=== PATIENT | male | born 1960 ===

== ENCOUNTER → 2020-10-04 09:32 | Outpatient (BNVA) | payer MEDICARE, MEDICAID, SELFPAY | PROVIDERS: PCP Internal Medicine; Referring Provider Internal Medicine; Visit Provider Internal Medicine Endocrinology, Diabetes & Metabolism | DX: E11.42 Type 2 diabetes mellitus with diabetic polyneuropathy (principal); E11.22 Type 2 diabetes mellitus with diabetic chronic kidney disease; I12.9 Hypertensive chronic kidney disease with stage 1 through stage 4 chronic kidney disease, or unspecified chronic kidney disease; N18.30 Chronic kidney disease, stage 3 unspecified; Z79.84 Long term (current) use of oral hypoglycemic drugs; E78.5 Hyperlipidemia, unspecified; E83.52 Hypercalcemia | CPT/HCPCS: 99212 ==

== ENCOUNTER 2020-11-02 07:48 | Outpatient (REF) | payer MEDICARE, MEDICAID, SELFPAY ==
[2020-11-02 09:34] LABS: Alanine Aminotransferase 21 U/L (0-40); Albumin Level 4.2 g/dL (3.5-5.0); Alkaline Phosphatase 121 U/L (39-117); Anion Gap 12 (12-20); Aspartate Amino Transferase 19 U/L (5-37); Bilirubin Total 0.7 mg/dL (0.0-1.0); Blood Urea Nitrogen 23 mg/dL (9-16); Carbon Dioxide 29 mmol/L (22-29); Chloride 105 mmol/L (96-108); Estimated Glomerular Filt Rate 46; Glucose Random 116 mg/dL (60-115); Potassium 4.7 mmol/l (3.3-5.1); Sodium 141 mmol/L (135-145); Total Protein 6.6 g/dL (6.5-8.0)
[2020-11-02 09:42] LABS: Calcium 10.5 mg/dL (8.4-10.2)
[2020-11-03 20:37] LABS: Calcium (PTHI) 10.7 mg/dL (8.6-10.3); PTHI 58 pg/mL (14-64)
== END 2020-11-02 07:49 | disposition home or self-care (01) ==
LOC: HO.LAB 07:48
PROVIDERS: Visit Provider Internal Medicine
DX: E78.00 Pure hypercholesterolemia, unspecified (principal); E11.65 Type 2 diabetes mellitus with hyperglycemia; E11.22 Type 2 diabetes mellitus with diabetic chronic kidney disease; I12.9 Hypertensive chronic kidney disease with stage 1 through stage 4 chronic kidney disease, or unspecified chronic kidney disease; N18.30 Chronic kidney disease, stage 3 unspecified; E83.52 Hypercalcemia; Z94.0 Kidney transplant status
CPT/HCPCS: 80053; 83970

== ENCOUNTER → 2020-11-08 14:13 | Outpatient (BNVA) | payer MEDICARE, MEDICAID, SELFPAY | PROVIDERS: PCP Internal Medicine; Referring Provider Internal Medicine; Visit Provider Internal Medicine Endocrinology, Diabetes & Metabolism | DX: E11.22 Type 2 diabetes mellitus with diabetic chronic kidney disease (principal); I12.9 Hypertensive chronic kidney disease with stage 1 through stage 4 chronic kidney disease, or unspecified chronic kidney disease; N18.30 Chronic kidney disease, stage 3 unspecified; E11.42 Type 2 diabetes mellitus with diabetic polyneuropathy; E11.21 Type 2 diabetes mellitus with diabetic nephropathy; E83.52 Hypercalcemia; E78.5 Hyperlipidemia, unspecified | CPT/HCPCS: 82947; 99212 ==

== ENCOUNTER 2020-12-19 07:17 | Outpatient (REF) | payer MEDICARE, MEDICAID, SELFPAY ==
[2020-12-19 08:04] LABS: Estimated Average Glucose 143 mg/dL; Hemoglobin A1c % 6.6 %
[2020-12-19 08:29] LABS: Alanine Aminotransferase 18 U/L (0-40); Albumin Level 4.2 g/dL (3.5-5.0); Alkaline Phosphatase 106 U/L (39-117); Anion Gap 11 (12-20); Aspartate Amino Transferase 17 U/L (5-37); Bilirubin Total 0.5 mg/dL (0.0-1.0); Blood Urea Nitrogen 29 mg/dL (9-16); Calcium 10.3 mg/dL (8.4-10.2); Carbon Dioxide 27 mmol/L (22-29); Chloride 109 mmol/L (96-108); Estimated Glomerular Filt Rate 43; Glucose Fasting 118 mg/dL (60-99); Potassium 4.4 mmol/l (3.3-5.1); Sodium 143 mmol/L (135-145); Total Protein 6.7 g/dL (6.5-8.0)
== END 2020-12-19 07:18 | disposition home or self-care (01) ==
LOC: HO.LAB 07:17
PROVIDERS: PCP Internal Medicine; Visit Provider Internal Medicine Endocrinology, Diabetes & Metabolism
DX: E11.21 Type 2 diabetes mellitus with diabetic nephropathy (principal); J44.9 Chronic obstructive pulmonary disease, unspecified
CPT/HCPCS: 36415; 80053; 83036

== ENCOUNTER 2021-05-16 13:11 | Outpatient (REF) | payer MEDICARE, MEDICAID, SELFPAY ==
[2021-05-16 15:07] LABS: Creatinine Urine 107.89 mg/dL; Microalbum/Creatinine Ratio Ur 41.7 ug/mg cr
[2021-05-16 15:10] LABS: Alanine Aminotransferase 18 U/L (0-40); Albumin Level 4.1 g/dL (3.5-5.0); Alkaline Phosphatase 97 U/L (39-117); Anion Gap 10 (12-20); Aspartate Amino Transferase 17 U/L (5-37); Bilirubin Total 0.2 mg/dL (0.0-1.0); Blood Urea Nitrogen 29 mg/dL (9-16); Calcium 10.7 mg/dL (8.4-10.2); Carbon Dioxide 30 mmol/L (22-29); Chloride 109 mmol/L (96-108); Estimated Glomerular Filt Rate 44; Glucose Random 105 mg/dL (60-115); Potassium 4.7 mmol/L (3.3-5.1); Sodium 144 mmol/L (135-145); Total Protein 6.4 g/dL (6.5-8.0)
== END 2021-05-16 13:12 | disposition home or self-care (01) ==
LOC: HO.LAB 13:11
PROVIDERS: PCP Internal Medicine; Visit Provider Internal Medicine Endocrinology, Diabetes & Metabolism
DX: I12.9 Hypertensive chronic kidney disease with stage 1 through stage 4 chronic kidney disease, or unspecified chronic kidney disease (principal); E11.22 Type 2 diabetes mellitus with diabetic chronic kidney disease; N18.30 Chronic kidney disease, stage 3 unspecified; E11.65 Type 2 diabetes mellitus with hyperglycemia; E11.42 Type 2 diabetes mellitus with diabetic polyneuropathy; E78.5 Hyperlipidemia, unspecified; E83.52 Hypercalcemia; E11.21 Type 2 diabetes mellitus with diabetic nephropathy
CPT/HCPCS: 36415; 80053; 82043; 82947; 99212

== ENCOUNTER → 2021-07-30 14:21 | Outpatient (BNVA) | payer MEDICARE, MEDICAID, SELFPAY | PROVIDERS: PCP Internal Medicine | DX: Z20.822 Contact with and (suspected) exposure to COVID-19 (principal) | CPT/HCPCS: 36415; 87635 ==

== ENCOUNTER → 2021-08-20 12:41 | Outpatient (BNVA) | payer MEDICARE, MEDICAID, SELFPAY | PROVIDERS: PCP Internal Medicine; Visit Provider Nurse Practitioner Gerontology | DX: E11.65 Type 2 diabetes mellitus with hyperglycemia (principal); E11.22 Type 2 diabetes mellitus with diabetic chronic kidney disease; E11.21 Type 2 diabetes mellitus with diabetic nephropathy; E11.42 Type 2 diabetes mellitus with diabetic polyneuropathy; I12.0 Hypertensive chronic kidney disease with stage 5 chronic kidney disease or end stage renal disease; N18.6 End stage renal disease; E78.5 Hyperlipidemia, unspecified; E83.52 Hypercalcemia; Z87.891 Personal history of nicotine dependence; Z94.0 Kidney transplant status; Z79.84 Long term (current) use of oral hypoglycemic drugs; Z79.899 Other long term (current) drug therapy | CPT/HCPCS: 82947; 99212 ==

== ENCOUNTER 2021-09-26 06:36 | Outpatient (REF) | payer MEDICARE, MEDICAID, SELFPAY ==
[2021-09-26 07:28] LABS: MANUAL DIFF FLAG SCAN; PLT CLUMP 1; SCAN SMEAR FLAG 1
[2021-09-26 07:31] LABS: Basophils Percent Auto 0.3 % (0-2); Eosinophils Absolute Auto 0.1 X10*3/uL (0.0-0.4); Eosinophils Percent Auto 1.8 % (0-4); Hematocrit 47.1 % (42-52); Hemoglobin 15.4 g/dl (14.0-18.0); Imm Gran Abs Auto 0.04 X10*3/uL (0.00-0.03); Imm Gran Pct Auto 0.5 % (0.0-0.4); Immature Retic Fraction 4.4 % (2.3-13.4); Lymphocytes Absolute Auto 1.1 X10*3/uL (1.2-4.9); Lymphocytes Percent Auto 15.5 % (20-40); Mean Corpuscular HGB Conc 32.7 g/dl (31.0-36.0); Mean Corpuscular Hemoglobin 30.8 pg (27.0-33.0); Mean Corpuscular Volume 94.2 fL (80-98); Monocytes Absolute Auto 0.6 X10*3/uL (0.1-1.2); Monocytes Percent Auto 7.8 % (2-11); Neutrophils Absolute Auto 5.4 X10*3/uL (2.0-8.3); Neutrophils Percent Auto 74.1 % (45-73); Red Cell Distribution Width 14.3 % (11.0-16.0); Retic HGB Equivalent 34.9 pg (30.0-35.0); Reticulocyte Percent 0.8 % (0.5-1.8); Reticulocytes Absolute 0.039 X10*6/uL (0.026-0.095); White Blood Count 7.3 X10*3/uL (4.8-10.8)
[2021-09-26 07:59] LABS: Alanine Aminotransferase 18 U/L (0-40); Albumin Level 4.2 g/dL (3.5-5.0); Alkaline Phosphatase 110 U/L (39-117); Anion Gap 12 (12-20); Aspartate Amino Transferase 20 U/L (5-37); Bilirubin Total 0.7 mg/dL (0.0-1.0); Blood Urea Nitrogen 23 mg/dL (9-16); Calcium 10.5 mg/dL (8.4-10.2); Carbon Dioxide 26 mmol/L (22-29); Chloride 107 mmol/L (96-108); Cholesterol 133 mg/dL; Estimated Glomerular Filt Rate 44; Glucose Fasting 126 mg/dL (60-99); HDL Cholesterol 53 mg/dL; Iron 80 mcg/dL (45-160); LDL Cholesterol Calculated 68 mg/dl; Percent Iron Saturation 29 % (15-50); Potassium 4.5 mmol/L (3.3-5.1); Sodium 140 mmol/L (135-145); Total Iron Binding Capacity 273 mcg/dL (228-428); Total Protein 6.9 g/dL (6.5-8.0); Triglycerides 63 mg/dL; Unsaturated Iron Binding 193 ug/dL
[2021-09-26 08:12] LABS: Ferritin 223 ng/mL (20-250); Free T4 (Free Thyroxine) 1.03 ng/dL (0.71-1.85); Thyroid Stimulating Hormone 0.96 uIU/mL (0.32-4.0); Vitamin D 25-OH Total 23.1 ng/mL (>30)
[2021-09-26 08:13] LABS: Platelet Count 132 X10*3/uL (160-400); SLIDE REVIEW VERIFIED
[2021-09-26 08:24] LABS: Folate 9.5 ng/mL (> or = 4.0); Vitamin B12 278 pg/mL (200-900)
[2021-09-26 10:20] LABS: Creatinine Urine 68.99 mg/dL; Microalbum/Creatinine Ratio Ur 94.2 ug/mg cr
[2021-09-27 22:02] LABS: LDL Cholesterol Direct 62 mg/dL (<100)
== END 2021-09-26 06:37 | disposition home or self-care (01) ==
LOC: HO.LAB 06:36
PROVIDERS: Absent Provider Nurse Practitioner Gerontology; PCP Internal Medicine; Visit Provider Internal Medicine
DX: E11.65 Type 2 diabetes mellitus with hyperglycemia (principal); E11.21 Type 2 diabetes mellitus with diabetic nephropathy; E78.00 Pure hypercholesterolemia, unspecified; E78.5 Hyperlipidemia, unspecified; Z94.0 Kidney transplant status
CPT/HCPCS: 36415; 80053; 80061; 82043; 82306; 82607; 82728; 82746; 83540; 83721; 84439; 84443; 85025; 85045

== ENCOUNTER → 2022-02-18 07:22 | Outpatient (BNVA) | payer MEDICARE, MEDICAID, SELFPAY | PROVIDERS: PCP Internal Medicine; Visit Provider Nurse Practitioner Gerontology | DX: E11.42 Type 2 diabetes mellitus with diabetic polyneuropathy (principal); E11.21 Type 2 diabetes mellitus with diabetic nephropathy; E78.5 Hyperlipidemia, unspecified; I10 Essential (primary) hypertension | CPT/HCPCS: 82947; 99212 ==

== ENCOUNTER 2022-11-12 06:14 | Outpatient (REF) | payer MEDICARE, MEDICAID, SELFPAY ==
[2022-11-12 06:19] LABS: MANUAL DIFF FLAG NO
[2022-11-12 07:43] LABS: Basophils Percent Auto 0.3 % (0-2); Eosinophils Absolute Auto 0.1 X10*3/uL (0.0-0.4); Eosinophils Percent Auto 1.6 % (0-4); Hematocrit 43.7 % (42.0-52.0); Hemoglobin 14.2 g/dl (14.0-18.0); Imm Gran Abs Auto 0.03 X10*3/uL (0.00-0.03); Imm Gran Pct Auto 0.5 % (0.0-0.4); Immature Retic Fraction 2.1 % (2.3-13.4); Lymphocytes Absolute Auto 1.5 X10*3/uL (1.2-4.9); Lymphocytes Percent Auto 23.9 % (20-40); Mean Corpuscular HGB Conc 32.5 g/dl (31.0-36.0); Mean Corpuscular Hemoglobin 30.5 pg (27.0-33.0); Mean Corpuscular Volume 93.8 fL (80.0-98.0); Mean Platelet Volume 10.3 fL (9.4-12.4); Monocytes Absolute Auto 0.7 X10*3/uL (0.1-1.2); Monocytes Percent Auto 10.3 % (2-11); Neutrophils Percent Auto 63.4 % (45-73); Platelet Count 131 X10*3/uL (160-400); Red Blood Count 4.66 X10*6/uL (4.60-5.80); Red Cell Distribution Width 14.5 % (11.0-16.0); Reticulocyte Percent 0.7 % (0.5-1.8); Reticulocytes Absolute 0.034 X10*6/uL (0.026-0.095); White Blood Count 6.3 X10*3/uL (4.8-10.8)
[2022-11-12 07:50] LABS: Estimated Average Glucose 137 mg/dL; Hemoglobin A1c % 6.4 %
[2022-11-12 08:18] LABS: Alanine Aminotransferase 20 U/L (0-40); Albumin Level 4.1 g/dL (3.5-5.0); Alkaline Phosphatase 106 U/L (39-117); Anion Gap 13 (12-20); Aspartate Amino Transferase 19 U/L (5-37); Bilirubin Total 0.5 mg/dL (0.0-1.0); Blood Urea Nitrogen 29 mg/dL (9-16); Calcium 10.5 mg/dL (8.4-10.2); Carbon Dioxide 26 mmol/L (22-29); Chloride 109 mmol/L (96-108); Cholesterol 129 mg/dL; Estimated Glomerular Filt Rate 43; Ferritin 241 ng/mL (20-250); Free T4 (Free Thyroxine) 1.11 ng/dL (0.71-1.85); Glucose Random 110 mg/dL (60-115); HDL Cholesterol 57 mg/dL; Iron 73 mcg/dL (45-160); LDL Cholesterol Calculated 62 mg/dl; Percent Iron Saturation 31 % (15-50); Potassium 4.6 mmol/L (3.3-5.1); Sodium 143 mmol/L (135-145); Thyroid Stimulating Hormone 1.18 uIU/mL (0.32-4.0); Total Iron Binding Capacity 234 mcg/dL (228-428); Total Protein 6.7 g/dL (6.5-8.0); Triglycerides 51 mg/dL; Unsaturated Iron Binding 161 ug/dL; Vitamin D 25-OH Total 20.3 ng/mL (>30)
[2022-11-12 08:22] LABS: Folate 6.4 ng/mL (> or = 4.0); Vitamin B12 320 pg/mL (200-900)
[2022-11-12 09:35] LABS: Creatinine Urine 71.63 mg/dL; Microalbum/Creatinine Ratio Ur 160.5 ug/mg cr
== END 2022-11-12 06:15 | disposition home or self-care (01) ==
LOC: HO.LAB 06:14
PROVIDERS: PCP Internal Medicine; Visit Provider Internal Medicine
DX: E11.65 Type 2 diabetes mellitus with hyperglycemia (principal); E78.00 Pure hypercholesterolemia, unspecified; E78.5 Hyperlipidemia, unspecified; N18.9 Chronic kidney disease, unspecified; Z94.0 Kidney transplant status; Z12.5 Encounter for screening for malignant neoplasm of prostate
CPT/HCPCS: 36415; 80053; 80061; 82043; 82306; 82607; 82728; 82746; 83036; 83540; 84153; 84439; 84443; 85025; 85045

== ENCOUNTER 2023-12-04 10:07 | Outpatient (AMB) | payer MEDICARE, MEDICAID, SELFPAY ==
--- NOTE | 2023-12-04 10:12 | AM.OFFVISMDC ---
Intake Vital Signs 12/04/23 10:13 Height 6 ft 0.5 in Weight 153 lb 0.2 oz BMI 20.5 BP 110/72 Blood Pressure Location Lt brachial Position Sitting Pulse 70 Pulse Source Pulse Oximeter Pulse Oximetry (%) 95 Oxygen Delivery Method Room Air Intake Visit Reasons: DM AWV Intake Note: Patient is here for an Annual Wellness Visit. 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 Allergies No Known Allergies Allergy (Verified 12/04/23 10:13) Medication List - Last Reconciled 12/04/23 by Carla Burns MD blood sugar diagnostic (FreeStyle Lite Strips) As directed three times a day blood sugar diagnostic As directed empagliflozin (Jardiance) 10 mg PO QAM gabapentin 100 mg PO DAILY 90 days lancets (FreeStyle Lancets) Once a day lancets As directed lisinopril 30 mg PO DAILY 90 days magnesium oxide 400 mg PO QAM repaglinide 0.5 mg PO DAILY 30 days simvastatin 20 mg PO DAILY tacrolimus 8 mg PO DAILY Tradjenta (linagliptin) 5 mg PO DAILY 90 days NS HPI DM AWV HPI Details 63-year-old male with diabetes mellitus hypertension hypercholesterolemia history of kidney transplant coming in for annual well visit last seen in October 2022. Colonoscopy is due for this year March 2019 in 5 years. Review of the notes follows up with Nephrology October 2023 chronic kidney disease stage IIIA renal allograft baseline creatinine of 1.5-1.7 Envarsus monotherapy, tacrolimus between 6 and 9 nanograms/cc Tradjenta and Jardiance PFSH Medical History (Updated 12/04/23 @ 11:00 by Carla Burns MD) Diabetes type 2, uncontrolled Chronic kidney disease Positive TB test Lumbar degenerative disc disease COPD (chronic obstructive pulmonary disease) Diabetic nephropathy associated with type 2 diabetes mellitus Hypercalcemia Hypertension Dyslipidemia Diabetic polyneuropathy associated with type 2 diabetes mellitus Diabetes type 2, controlled Surgical History Hx of colonoscopy Hx of kidney transplant Hx of umbilical hernia repair Family History (Updated 12/04/23 @ 11:06 by Carla Burns MD) Father Type 2 diabetes mellitus Kidney disease Mother Polycystic kidney disease Son No problems noted. Daughter No problems noted. Brother No problems noted. Brother No problems noted. Brother No problems noted. Brother Pancreatic cancer Brother No problems noted. Social History Household Members: Significant Other Housing: Apartment Alcohol intake: former Patient Tobacco Use Status: Former Tobacco user e-Cigarette/Vaping Use: Never Used Second Hand Smoke Exposure: Yes Substance Use Type: Marijuana service: No Current occupational status: employed Cognitive needs: No Hearing needs: No Vision needs: No Questionnaire Medicare Wellness Checkup What [age] your age?: 65-69 (63) What gender do you identify with?: male During the past 4 weeks, how much have you been bothered by emotional problems such as feeling anxious, depressed, irritable, sad or downhearted, and blue?: not at all During the past 4 weeks, has your physical & emotional health limited your social activities with family, friends, neighbors, or groups?: not at all During the past 4 weeks, how much bodily pain have you generally had?: very mild pain During the past 4 weeks, was someone available to help you if you needed & wanted help?: yes, as much as I wanted During the past 4 weeks, what was the hardest physical activity you could do for at least 2 minutes?: moderate Can you get to places out of walking distance without help? (For eg., can you travel alone on buses, taxis or drive your car?): Yes Can you go shopping for groceries or clothes without someone's help?: Yes Can you prepare your own meals?: Yes Can you do your housework without help?: Yes Because of any health problems, do you need the help of another person with your personal care needs such as eating, bathing, dressing or getting around the house?: No Can you handle your own money without help?: Yes During the past 4 weeks, how would you rate your health in general?: good During the past 4 weeks how have things been going for you?: pretty well Are you having difficulties driving your car?: no Do you always fasten your seat belt when you are in a car?: yes, usually During past 4 weeks, have you been bothered by the following: never: Falling or dizzy when standing up, Sexual problems?, Trouble eating well?, Teeth or denture problems?, Problems using the telephone? and Tiredness or fatigue? Have you fallen 2 or more times in the past year?: No Are you afraid of falling?: No Are you a smoker?: no During the past 4 weeks, how many drinks of wine, beer, or other alcoholic beverages did you have?: no alcohol at all Do you exercise for about 20 minutes 3 or more times a week?: yes, some of the time Have you been given information to help with the following?: no: Hazards in your house that might hurt you? and no: Keeping track of your medications? How often do you have trouble taking medicines the way you have been told to take them?: I seldom take medications as prescribed How confident are you that you can control & manage most of your health problems?: very confident What is your race?: or origin or descent PHQ-9 Over the last 2 weeks, how often have you been bothered by any of the following problems? 1. Little interest or pleasure in doing things: not at all 2. Feeling down, depressed, or hopeless: not at all 3. Trouble falling or staying asleep, or sleeping too much: not at all 4. Feeling tired or having little energy: not at all 5. Poor appetite or overeating: not at all 6. Feeling bad about yourself - or that you are a failure or have let yourself or your family down: not at all 7. Trouble concentrating on things, such as reading the newspaper or watching television: not at all 8. Moving or speaking so slowly that other people could have noticed. Or the opposite - being so fidgety or restless that you have been moving around a lot more than usual: not at all 9. Thoughts that you would be better off or of hurting yourself in some way: not at all Total score: 0 Depression Screening Interpretation: Negative Depression Screening Done: Yes 66794 - PHQ-9 Billing: Yes Source: Developed by Drs. Mikhail Estes, Tina Lemos, Alec Pascual and colleagues, with an educational nallely from [employer]. Review of Systems Const Denies poor appetite and Denies weakness Eyes Denies no additional complaints ENT Reports Normal hearing present, Denies dizziness, Denies nasal congestion, Denies tinnitus and Denies sore throat Card Denies chest pain, Denies syncope, Denies rapid heart rate and Denies dyspnea Resp Denies cough and Denies dyspnea GI Denies change in stool character, Reports constipation, Denies diarrhea, Denies nausea and Denies vomiting Denies dysuria and Denies urinary frequency Neuro Reports Normal hearing present, Denies confusion, Denies dizziness, Denies syncope and Denies weakness Psych Denies confusion Physical Exam Vital Signs: Last Vital Signs Pulse 70 12/04/23 10:13 BP 110/72 12/04/23 10:13 Pulse Ox 95 12/04/23 10:13 Oxygen Delivery Method Room Air 12/04/23 10:13 BMI result Body Mass Index 20.5 Const General: alert and awake; No confusion Orientation/consciousness: No confusion HEENT Head: Yes normocephalic Ears: external ears normal and TM's normal bilaterally Face and sinus: Yes normal facial exam Mouth: moist mucous membranes Throat: Yes tonsils normal Eyes Conjunctivae: conjunctivae normal Pupils: Equal, round and reactive pupils present and Pupil accommodation reflex normal Direct Ophthalmoscopy: normal light reflex Neck Neck: No lymphadenopathy Thyroid: Thyroid normal Chest Chest palpation & inspection: normal inspection of the chest Resp Effort & Inspection: normal respiratory effort and no audible wheezes Auscultation: clear to auscultation bilaterally, no crackles, no wheezes and lung sounds not diminished Cardio Rate: regular rate Rhythm: regular rhythm Peripheral pulses: radial pulses present and dorsalis pedis present GI Other: referred for colon test Palpation (GI): no masses Auscultation: normal bowel sounds and normoactive bowel sounds Rectal Exam - Male: Yes deferred Other: pedal pulse and pin prick good Male General Exam: Yes normal external exam Skin General skin exam: no rashes or lesions noted Rashes: no rashes Neuro General: deep tendon reflexes 2+ bilaterally and No confusion Cranial nerves: Yes Equal, round and reactive pupils present, Yes Midline tongue present, Yes Normal hearing present and Yes Ability to bilaterally elevate shoulders present Cognition (Neuro): normal cognition Gait exam (Neuro): Normal gait present Motor exam (neuro): 5/5 motor strength present throughout Deep tendon reflexes (DTR's): Right brachioradialis reflex intensity grade: 2+, Left brachioradialis reflex intensity grade: 2+, Right patellar reflex intensity grade: 2+ and Left patellar reflex intensity grade: 2+ Extrem General: No edema Office Procedures Flu Questionnaire Does the patient have a severe egg allergy?: No Does the patient have severe life threatening allergies?: No Does the patient have a fever or illness today?: No Has the patient ever had Guillain-[place] Syndrome?: No Has the patient ever had any past reaction to a flu shot?: No Results AMB Hemoglobin A1c AMB Hemoglobin A1c 8.6 % Last Edit by DEEDEE Jones on 12/04/23 10:46 Immunizations flu vacc [id number] 6mos up(PF) 60 mcg(15 mcgx4)/0.5 mL IM syringe Performing Provider: Carla Burns MD [facility] Administered by: DEEDEE Jones on 12/04/23 10:40 Dose Route Admin Location Dispensed Lot Number Expiration Date 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 0.5 mL IM Left Deltoid 0.5 mL [id number] 05/30/24 [id number] Second Funnel VIS Given Date VIS Provided VIS Publication Date 12/04/23 Single Vaccine 21 Eligibility Eligibility Date Funding Source Not VFC Eligible 12/04/23 Private Results Reviewed Results Reviewed: Laboratory Last Values Hgb A1c (Clinic) 8.6 % (4.0-6.0) H 12/04/23 10:12 Assessment & Plan Assessment & Plan (1) Medicare annual wellness visit, subsequent: Code(s): Z00.00 - Encounter for general adult medical examination without abnormal findings Plan: Continue with present medication (2) Type 2 diabetes mellitus with hyperglycemia: Code(s): E11.65 - Type 2 diabetes mellitus with hyperglycemia Qualifiers: 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 Hemoglobin A1c goal of less than 7.0 preferably below 6.5 (3) Hx of kidney transplant: Comment: Polycystic kidney disease, December 2013 renal transplant [facility] Code(s): Z94.0 - Kidney transplant status Plan: Continue follow-up with Nephrology continue with present medication (4) Tubular adenoma of colon: Code(s): D12.6 - Benign neoplasm of colon, unspecified Plan: Reminded about colonoscopy (5) Chronic kidney disease: Code(s): N18.9 - Chronic kidney disease, unspecified Qualifiers: Chronic kidney disease stage: unspecified stage Qualified Code(s): N18.9 - Chronic kidney disease, unspecified Plan: Patient continues to follow-up with Nephrology, we will keep well hydrated avoid NSAIDs (6) COPD (chronic obstructive pulmonary disease): Code(s): J44.9 - Chronic obstructive pulmonary disease, unspecified Qualifiers: COPD type: emphysema Emphysema type: unspecified Qualified Code(s): J43.9 - Emphysema, unspecified Plan: Stable (7) Hypertension: Code(s): I10 - Essential (primary) hypertension Qualifiers: Hypertension type: essential hypertension Qualified Code(s): I10 - Essential (primary) hypertension Plan: Continue with blood pressure medication. Decrease salt intake and exercise continue with lisinopril 30 mg once a day (8) Dyslipidemia: Code(s): E78.5 - Hyperlipidemia, unspecified Plan: Avoid fried foods, chicken skin, eggs, butter margarine, pastries and meat. Be it pork or beef they have a lot of cholesterol LDL goal of less than 100 and triglyceride of less than 150 on simvastatin 20. Will need blood work Orders: Orders AMB Hemoglobin A1c Today E11.42 - Type 2 diabetes mellitus with diabetic polyneuropathy Influenza [id number] Immunization Today Z23 - Encounter for immunization Complete Blood Count Auto Diff Today E11.65 - Type 2 diabetes mellitus with hyperglycemia Comprehensive Met. Panel Today E11.65 - Type 2 diabetes mellitus with hyperglycemia Free T4 (Free Thyroxine) Today E11.65 - Type 2 diabetes mellitus with hyperglycemia Hemoglobin A1c Today E11.65 - Type 2 diabetes mellitus with hyperglycemia Vitamin B12 and Folate Today E11.65 - Type 2 diabetes mellitus with hyperglycemia Thyroid Stimulating Hormone Today E11.65 - Type 2 diabetes mellitus with hyperglycemia Microalbumin, Random (w Creat) Today E11.65 - Type 2 diabetes mellitus with hyperglycemia Lipid Panel Today E11.65 - Type 2 diabetes mellitus with hyperglycemia, E78.00 - Pure hypercholesterolemia, unspecified Prostate Specific Antigen Scr Today E11.65 - Type 2 diabetes mellitus with hyperglycemia Creatinine Urine Today E11.65 - Type 2 diabetes mellitus with hyperglycemia Referrals Gastroenterology Referral D12.6 - Benign neoplasm of colon, unspecified Medications: Changed From empagliflozin (Jardiance) 10 mg PO QAM 30 tabs 5RF E11.65 - Type 2 diabetes mellitus with hyperglycemia To empagliflozin 25 mg PO QAM 30 tabs 5RF E11.65 - Type 2 diabetes mellitus with hyperglycemia Quality Reporting (2019) Depression/Bipolar (159/160/161/177) PHQ-9: Total score: 0 Coding Level of Care Code Medicare Subsequent (G0439) Diagnoses Medicare annual wellness visit, subsequent Z00.00 Type 2 diabetes mellitus with hyperglycemia, without long-term current use of insulin E11.65 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
[2023-12-04 10:13] VITALS: BP 110/72; PULSE 70; O2SAT 95; BMI 20.5
== END 2023-12-04 11:20 | disposition home or self-care (01) ==
PROVIDERS: PCP Internal Medicine; Visit Provider Internal Medicine
DX: Z00.00 Encounter for general adult medical examination without abnormal findings (principal); E11.65 Type 2 diabetes mellitus with hyperglycemia; J43.9 Emphysema, unspecified; Z23 Encounter for immunization; E11.42 Type 2 diabetes mellitus with diabetic polyneuropathy; Z94.0 Kidney transplant status; D12.6 Benign neoplasm of colon, unspecified; N18.9 Chronic kidney disease, unspecified; I12.9 Hypertensive chronic kidney disease with stage 1 through stage 4 chronic kidney disease, or unspecified chronic kidney disease; E78.5 Hyperlipidemia, unspecified
CPT/HCPCS: 83036; 90471; 90686; G0439

== ENCOUNTER 2024-02-10 08:15 | Outpatient (AMB) | payer MEDICARE, MEDICAID, SELFPAY ==
[2024-02-10 08:19] VITALS: BP 133/61; PULSE 68; BMI 20.1
--- NOTE | 2024-02-10 08:19 | A.OFFVIS_ITS ---
Intake Vital Signs 02/10/24 08:19 Height 6 ft 0.5 in Weight 149 lb 14.629 oz BMI 20.1 BP 133/61 Blood Pressure Location Lt brachial Position Sitting Pulse 68 Pulse Source Pulse Oximeter Intake Visit Reasons: pre Colonoscopy screening Intake Note: Pt presents to the office today for a colonoscopy screening. Pt states he is feeling well and denies any GI concerns at this time. Allergies No Known Allergies Allergy (Verified 02/10/24 08:19) HPI pre Colonoscopy screening HPI Details 63 year old? male with past medical hist ory of diabetes, history of kidney transplant, tubular adenoma of colon, COPD, dyslipidemia is here today for pre colonoscopy screening.? Last colonoscopy in March 2019 no polyps found, history of tubular adenoma recommendation was made to repeat colonoscopy every 5 years. Patient denies any gastrointestinal symptoms in the past or at present.? However patient does report that occasionally he will have blood in his stool. History of hemorrhoids. Denies any personal or family history of gastroint estinal disease or cancer.? Denies history of difficulty with sedation or anesthesia in the past.? Negative for history of sleep apnea.? Denies any history of cardiac, pulmonary, or hepatic disease.?? No history of infectious? diseases like hepatitis A, B, C, HIV.? History of tuberculosis in 2009, treated. Patient is not on any anticoagulation therapy. [facility] Medical History Diabetes type 2, uncontrolled Chronic kidney disease Positive TB test Lumbar degenerative disc disease COPD (chronic obstructive pulmonary disease) Diabetic nephropathy associated with type 2 diabetes mellitus Hypercalcemia Hypertension Dyslipidemia Diabetic polyneuropathy associated with type 2 diabetes mellitus Diabetes type 2, controlled Surgical History Hx of colonoscopy Hx of kidney transplant Hx of umbilical hernia repair Family History Father Type 2 diabetes mellitus Kidney disease Mother Polycystic kidney disease Son No problems noted. Daughter No problems noted. Brother No problems noted. Brother No problems noted. Brother No problems noted. Brother Pancreatic cancer Brother No problems noted. Social History Household Members: Significant Other Housing: Apartment Alcohol intake: former Patient Tobacco Use Status: Former Tobacco user e-Cigarette/Vaping Use: Never Used Second Hand Smoke Exposure: Yes Substance Use Type: Marijuana service: No Current occupational status: employed Cognitive needs: No Hearing needs: No Vision needs: No Review of Systems Const Denies weight gain and Denies weight loss ENT Reports no additional complaints, Denies dysphagia and Denies odynophagia Card Reports no additional complaints Resp Reports no additional complaints GI Denies abdominal pain, Denies belching, Denies melena, Denies bloating, Reports hematochezia (Occasional), Denies change in bowel habits, Denies dysphagia, Denies excessive flatus, Denies dyspepsia, Denies heartburn, Denies diarrhea, Denies loose stools, Denies nausea, Denies odynophagia and Denies vomiting Reports no additional complaints Musc Reports no additional complaints Neuro Reports no additional complaints Psych Reports no additional complaints Endo Reports no additional complaints Physical Exam Vital Signs: Last Vital Signs Pulse 68 02/10/24 08:19 BP 133/61 02/10/24 08:19 BMI result Body Mass Index 20.1 Const General: healthy appearing, no acute distress and well developed Nutritional Appearance: well nourished Orientation/consciousness: patient oriented x3 Resp Effort & Inspection: normal respiratory effort, able to speak in complete sentences, no tracheal deviation and symmetric chest movement Auscultation: clear to auscultation bilaterally Cardio Rate: regular rate GI Inspection: Yes normal to inspection and No distended Palpation (GI): Soft to palpation, not firm, nontender and No hepatosplenomegaly present Auscultation: normal bowel sounds General: Yes no CVA tenderness Back/Spine/Pelvis Back: no CVA tenderness Skin General skin exam: elasticity normal, turgor normal and dry skin Neuro General: patient oriented x3 Psych Appearance: grossly normal Mental Status: mental status grossly normal Assessment & Plan Assessment & Plan (1) Screen for colon cancer: Code(s): Z12.11 - Encounter for screening for malignant neoplasm of colon Plan Patient denies any GI, cardiac or respiratory symptoms.? Occasional blood in his stool, history of hemorrhoids. Will send patient script for Proctosol. Denies any issues with anesthesia in the past.? Denies any history of sleep apnea.? History of TB in 2009, treated for 9 months.? Not on any anticoagulation therapy.? History of tubular adenomas in the past, last colonoscopy no polyps. Patient denies melena, hematochezia, unintentional weight loss or ribbon like stools.? Discussed at length the pre-procedure,? prep, diet & medications as well as what to expect prior, during and after the procedure.?? Stressed the importance of good bowel prep. ?Recommended the use of Vaseline or Calmoseptine OTC & baby wipes with bowel movements to promote comfort.? ?Patient verbalizes understanding and agrees to plan of care.? He was given the opportunity to ask questions and all questions answered.? We will see him after the procedure.? Medications: New bisacodyl (Dulcolax (bisacodyl)) take 4 tabs at noon the day before your colonoscopy 20 mg (4 x 5 mg) PO ONCE 1 day 4 tabs 0RF Z12.11 - Encounter for screening for malignant neoplasm of colon polyethylene glycol 3350 (Miralax) As directed by gastroenterology department at [facility] 238 grams PO ONCE 238 grams 0RF Z12.11 - Encounter for screening for malignant neoplasm of colon hydrocortisone 2.5% (Proctosol HC) 1 appl MI BID-QID PRN 30 grams 2RF hemorrhoids K64.9 - Unspecified hemorrhoids Coding Level of Care Code New Pt Level 3 (33463) Diagnoses Screen for colon cancer Z12.11 Time Spent (min) 40 Comment 30 minutes spent with patient and additional 10 minutes spent reviewing his records
== END 2024-02-10 08:50 | disposition home or self-care (01) ==
PROVIDERS: PCP Internal Medicine; Visit Provider Nurse Practitioner Family
DX: Z01.818 Encounter for other preprocedural examination (principal); Z12.11 Encounter for screening for malignant neoplasm of colon; Z86.010 Personal history of colon polyps
CPT/HCPCS: 99203; 99213

== ENCOUNTER → 2024-02-10 08:15 | Outpatient (BNVA) | payer MEDICARE, MEDICAID, SELFPAY | PROVIDERS: PCP Internal Medicine; Visit Provider Nurse Practitioner Family | DX: Z12.11 Encounter for screening for malignant neoplasm of colon (principal) | CPT/HCPCS: 99202 ==

== ENCOUNTER 2024-03-04 07:09 | Outpatient (REF) | payer MEDICARE, SELFPAY ==
[2024-03-04 07:24] LABS: MANUAL DIFF FLAG NO
[2024-03-04 07:59] LABS: Basophils Percent Auto 0.3 % (0-2); Eosinophils Absolute Auto 0.1 X10*3/uL (0.0-0.4); Eosinophils Percent Auto 1.3 % (0-4); Hematocrit 44.6 % (42.0-52.0); Hemoglobin 14.5 g/dl (14.0-18.0); Imm Gran Abs Auto 0.02 X10*3/uL (0.00-0.03); Imm Gran Pct Auto 0.3 % (0.0-0.4); Lymphocytes Absolute Auto 1.3 X10*3/uL (1.2-4.9); Lymphocytes Percent Auto 18.8 % (20-40); Mean Corpuscular HGB Conc 32.5 g/dl (31.0-36.0); Mean Corpuscular Hemoglobin 31.2 pg (27.0-33.0); Mean Corpuscular Volume 95.9 fL (80.0-98.0); Mean Platelet Volume 10.5 fL (9.4-12.4); Monocytes Absolute Auto 0.6 X10*3/uL (0.1-1.2); Neutrophils Absolute Auto 4.8 x10*3/uL (2.0-8.3); Neutrophils Percent Auto 70.3 % (45-73); Platelet Count 121 X10*3/uL (160-400); Red Blood Count 4.65 X10*6/uL (4.60-5.80); Red Cell Distribution Width 14.6 % (11.0-16.0); White Blood Count 6.8 X10*3/uL (4.8-10.8)
[2024-03-04 08:10] LABS: Estimated Average Glucose 151 mg/dL; Hemoglobin A1c % 6.9 % (<6.0)
[2024-03-04 08:19] LABS: Creatinine Urine 47.43 mg/dL; Microalbum/Creatinine Ratio Ur 830.6 ug/mg cr (<30)
[2024-03-04 08:24] LABS: Alanine Aminotransferase 13 U/L (0-40); Alkaline Phosphatase 94 U/L (39-117); Anion Gap 11 (12-20); Aspartate Amino Transferase 16 U/L (5-37); Bilirubin Total 0.5 mg/dL (0.0-1.0); Blood Urea Nitrogen 26 mg/dL (9-16); Calcium 10.8 mg/dL (8.4-10.2); Carbon Dioxide 26 mmol/L (22-29); Chloride 111 mmol/L (96-108); Cholesterol 130 mg/dL (<200); Estimated Glomerular Filt Rate 48; Glucose Random 154 mg/dL (60-115); HDL Cholesterol 63 mg/dL (>40); LDL Cholesterol Calculated 56 mg/dL (<100); Potassium 4.5 mmol/L (3.3-5.1); Sodium 143 mmol/L (135-145); Total Protein 7.2 g/dL (6.5-8.0); Triglycerides 56 mg/dL (<150)
[2024-03-04 08:42] LABS: Free T4 (Free Thyroxine) 1.03 ng/dL (0.71-1.85); Thyroid Stimulating Hormone 1.09 uIU/mL (0.32-4.0)
[2024-03-04 08:54] LABS: Folate 10.9 ng/mL (> or = 4.0); Prostate Specific Antigen Scr 0.61 ng/mL (<0.05-4.0); Vitamin B12 401 pg/mL (200-900)
== END 2024-03-04 07:10 | disposition home or self-care (01) ==
LOC: HO.LAB 07:09
PROVIDERS: PCP Internal Medicine; Visit Provider Internal Medicine
DX: E11.65 Type 2 diabetes mellitus with hyperglycemia (principal); E78.00 Pure hypercholesterolemia, unspecified; Z12.5 Encounter for screening for malignant neoplasm of prostate
CPT/HCPCS: 36415; 80053; 80061; 82043; 82570; 82607; 82746; 83036; 84153; 84439; 84443; 85025

== ENCOUNTER 2024-03-11 10:34 | Outpatient (AMB) | payer MEDICARE, SELFPAY ==
[2024-03-11 10:53] VITALS: BP 118/76; PULSE 72; O2SAT 97; BMI 19.9
--- NOTE | 2024-03-11 10:53 | A.OFFPC_ITS ---
Vital Signs 03/11/24 10:53 Height 6 ft 0.5 in Weight 149 lb BMI 19.9 BP 118/76 Blood Pressure Location Rt brachial Position Sitting Pulse 72 Pulse Source Pulse Oximeter Pulse Oximetry (%) 97 Oxygen Delivery Method Room Air Intake Visit Reasons: DM Allergies No Known Allergies Allergy (Verified 03/11/24 10:53) Tobacco use date assessed: 03/11/24 Dental Screening Dental Screen Date: 03/11/24 Did you have a dental visit in the last 12 months?: No Did you have a dental problem in the last 6 months where you did not have access to dental care?: No Was dental information given to patient?: No HPI DM HPI Details 63-year-old male with diabetes mellitus his knee of kidney transplant tubular adenoma chronic kidney disease COPD hypertension and hypercholesterolemia last seen in December 2023. Concern about the last December's hemoglobin A1c of 8.6. Patient is here for follow-up [facility] Medical History Diabetes type 2, uncontrolled Chronic kidney disease Positive TB test Lumbar degenerative disc disease COPD (chronic obstructive pulmonary disease) Diabetic nephropathy associated with type 2 diabetes mellitus Hypercalcemia Hypertension Dyslipidemia Diabetic polyneuropathy associated with type 2 diabetes mellitus Diabetes type 2, controlled Surgical History Hx of colonoscopy Hx of kidney transplant Hx of umbilical hernia repair Family History (Updated 03/11/24 @ 10:54 by Shima Modi CMA) Father Type 2 diabetes mellitus Kidney disease Mother Polycystic kidney disease Son No problems noted. Daughter No problems noted. Brother No problems noted. Brother No problems noted. Brother No problems noted. Brother Pancreatic cancer Brother No problems noted. Social History Household Members: Significant Other Housing: Apartment Alcohol intake: former Patient Tobacco Use Status: Former Tobacco user Tobacco use type: Cigarette e-Cigarette/Vaping Use: Never Used Second Hand Smoke Exposure: Yes Substance Use Type: Marijuana service: No Current occupational status: employed Cognitive needs: No Hearing needs: No Vision needs: No Questionnaire PHQ-9 Over the last 2 weeks, how often have you been bothered by any of the following problems? 1. Little interest or pleasure in doing things: not at all 2. Feeling down, depressed, or hopeless: not at all 3. Trouble falling or staying asleep, or sleeping too much: not at all 4. Feeling tired or having little energy: not at all 5. Poor appetite or overeating: not at all 6. Feeling bad about yourself - or that you are a failure or have let yourself or your family down: not at all 7. Trouble concentrating on things, such as reading the newspaper or watching television: not at all 8. Moving or speaking so slowly that other people could have noticed. Or the opposite - being so fidgety or restless that you have been moving around a lot more than usual: not at all 9. Thoughts that you would be better off or of hurting yourself in some way: not at all Total score: 0 Depression Screening Interpretation: Negative Depression Screening Done: Yes 61155 - PHQ-9 Billing: Yes Source: Developed by Drs. Mikhail Estes, Tina Lemos, Alec Pascual and colleagues, with an educational nallely from [employer]). Thrive Questionnaire Date Thrive assessed: 03/11/24 I am a: Patient What is your living situation today?: I have a steady place to live Within the past 12 months, did the food you bought not last and you didn't have the money to get more?: Never true Within the past 12 months, did you worry whether your food would run out before you got money to buy more?: Never true Do you have trouble paying for medicines?: No Do you have trouble getting transportation to medical appointments?: No Do you have trouble paying your heating and electricity bill?: No Do you have trouble taking care of your child, family member or friend?: No Do you have trouble with day-to-day activities such as bathing, preparing meals, shopping, managing finances, etc.?: No Are you currently unemployed and looking for a job?: No Are you interested in more education?: No Currently or been in a relationship where the following occur: no concerns reported THRIVE Score: 0 AUDIT C Alcohol Use Questionnaire (AUDIT-C) 1. How often do you have a drink containing alcohol?: Never 3. How often do you have six or more drinks on one occasion?: Never Total Score: 0 JACOBY-7 AMB Questionnaire JACOBY-7 Date JACOBY - 7 assessed: 03/11/24 Feeling nervous, anxious, or on edge: 0 = Not at all Not being able to stop or control worryin = Not at all Worrying too much about different things: 0 = Not at all Trouble relaxin = Not at all Being so restless that it is hard to sit still: 0 = Not at all Becoming easily annoyed or irritable: 0 = Not at all Feeling afraid as if something awful might happen: 0 = Not at all Total JACOBY-7 score (0-4 normal; 5-9 mild; 10-14 moderate; 15-21 severe): 0 Source: Developed by Drs. Mikhail Estes, Tina Lemos, Alec Pascual and colleagues, with an educational nallely from [employer] ([employer]). Physical exam (Primary Care) Vital Signs: Last Vital Signs Pulse 72 03/11/24 10:53 BP 118/76 03/11/24 10:53 Pulse Ox 97 03/11/24 10:53 Oxygen Delivery Method Room Air 03/11/24 10:53 BMI result Body Mass Index 19.9 Tobacco/Smoking Status: Tobacco use Status Tobacco use date assessed 03/11/24 03/11/24 10:59 Patient Tobacco Use Status Former Tobacco user 03/11/24 10:59 Tobacco use type Cigarette 03/11/24 10:59 e-Cigarette/Vaping Use Never Used 03/11/24 10:59 PHQ-9: PHQ-9 Score PHQ-9: Total score 0 03/11/24 10:59 Depression Screening Interpretation: Negative Thrive Assessment: Date of Thrive Assessment Date Thrive assessed 03/11/24 03/11/24 10:59 Currently or been in a relationship where the following occur: no concerns reported Const General: alert; No acute distress Eyes Conjunctivae: conjunctivae normal Resp Auscultation: clear to auscultation bilaterally Cardio Rate: regular rate Rhythm: regular rhythm GI Inspection: Yes normal to inspection Extrem General: Yes normal to inspection and No edema Assessment and Plan Assessment & Plan (1) Hx of kidney transplant: Comment: Polycystic kidney disease, December 2013 renal transplant [facility] Code(s): Z94.0 - Kidney transplant status Plan: Continue to follow-up in Nephrology. Blood work is good (2) Type 2 diabetes mellitus with hyperglycemia: Code(s): E11.65 - Type 2 diabetes mellitus with hyperglycemia Qualifiers: Diabetes mellitus manager long term care insulin use: without mcc use Qualified Code(s): E11.65 - Type 2 diabetes mellitus with hyperglycemia Plan: Decrease the amount of carbohydrate intake, pasta, bread, rice and potatoes are all sugar and that is aside from all the sweet stuff, remember that fruits are good but they are Sweet also. Hemoglobin A1c goal of less than 6.5. Patient on Jardiance 25 mg once a day repaglinide 0.5 mg once a day and Tradjenta 5 mg once a day (3) Tubular adenoma of colon: Code(s): D12.6 - Benign neoplasm of colon, unspecified Plan: Patient has met with Gastroenterology in May 2024 schedule (4) Chronic kidney disease: Code(s): N18.9 - Chronic kidney disease, unspecified Qualifiers: Chronic kidney disease stage: unspecified stage Qualified Code(s): N18.9 - Chronic kidney disease, unspecified Plan: Keep well hydrated avoid NSAIDs (5) Hypertension: Code(s): I10 - Essential (primary) hypertension Qualifiers: Hypertension type: essential hypertension Qualified Code(s): I10 - Essential (primary) hypertension Plan: Continue with blood pressure medication. Decrease salt intake and exercise takes lisinopril 30 mg once a day (6) Dyslipidemia: Code(s): E78.5 - Hyperlipidemia, unspecified Plan: Avoid fried foods, chicken skin, eggs, butter margarine, pastries and meat. Be it pork or beef they have a lot of cholesterol LDL goal of less than 100 and triglyceride of less than 150. On simvastatin 20 mg once a day March 2024 blood work good Coding Level of Care Code Est Pt Level 4 (77034) Diagnoses Hx of kidney transplant Z94.0 Type 2 diabetes mellitus with hyperglycemia, without long-term current use of insulin E11.65 Diabetes mellitus manager long term care insulin use: without mcc use Tubular adenoma of colon D12.6 Chronic kidney disease, unspecified CKD stage N18.9 Chronic kidney disease stage: unspecified stage Essential hypertension I10 Hypertension type: essential hypertension Dyslipidemia E78.5
== END 2024-03-11 11:16 | disposition home or self-care (01) ==
PROVIDERS: PCP Internal Medicine; Visit Provider Internal Medicine
DX: Z94.0 Kidney transplant status (principal); E11.65 Type 2 diabetes mellitus with hyperglycemia; D12.6 Benign neoplasm of colon, unspecified; N18.9 Chronic kidney disease, unspecified; I12.9 Hypertensive chronic kidney disease with stage 1 through stage 4 chronic kidney disease, or unspecified chronic kidney disease; E78.5 Hyperlipidemia, unspecified
CPT/HCPCS: 99214

== ENCOUNTER 2024-05-25 08:29 | Day surgery (SDC) | payer MEDICARE, MEDICAID, SELFPAY ==
--- NOTE | 2024-05-24 08:41 | P.CONAN_ITS ---
Documented by User: Sakshi Morgan NP 05/24/24 08:44 HPI - Anesthesia Eval Consult details Narrative: 63yo M for Colonoscopy s/p renal transplant (ESRD) 2013. Stable at 03/2024 nephrology office visit. Anesthesia Pre-Procedure Meds Is the patient on any of the following meds?: SGLT2 Inhib PMFSH Active Problems Active Problems: All Active Problems Medicare annual wellness visit, subsequent (Acute) Hx of kidney transplant (Acute) Tubular adenoma of colon (Acute) Type 2 diabetes mellitus with hyperglycemia (Acute) Chronic kidney disease (Acute) COPD (chronic obstructive pulmonary disease) (Acute) Diabetic nephropathy associated with type 2 diabetes mellitus (Acute) Hypercalcemia (Acute) Hypertension (Acute) Dyslipidemia (Acute) Diabetic polyneuropathy associated with type 2 diabetes mellitus (Acute) Past Medical History Medical History Diabetes type 2, uncontrolled Chronic kidney disease Positive TB test Lumbar degenerative disc disease COPD (chronic obstructive pulmonary disease) Diabetic nephropathy associated with type 2 diabetes mellitus Hypercalcemia Hypertension Dyslipidemia Diabetic polyneuropathy associated with type 2 diabetes mellitus Diabetes type 2, controlled Family History Family History (Updated 03/11/24 @ 10:54 by Shima Modi CMA) Father Type 2 diabetes mellitus Kidney disease Mother Polycystic kidney disease Son No problems noted. Daughter No problems noted. Brother No problems noted. Brother No problems noted. Brother No problems noted. Brother Pancreatic cancer Brother No problems noted. Surgical History Surgical History Hx of colonoscopy Hx of kidney transplant Hx of umbilical hernia repair Social History Social History Household Members: Significant Other Housing: Apartment Alcohol intake: former Patient Tobacco Use Status: Former Tobacco user Tobacco use type: Cigarette e-Cigarette/Vaping Use: Never Used Second Hand Smoke Exposure: Yes Substance Use Type: Marijuana Advance Directives: No Advance Directives Information Provided: Yes service: No Current occupational status: employed Cognitive needs: No Hearing needs: No Vision needs: No Meds Allergies Allergy/AdvReac Type Severity Reaction Status Date / Time No Known Allergies Allergy Verified 03/11/24 10:53 Home Medications ?Medication ?Instructions ?Recorded ?Confirmed ?Last Taken ?Type blood sugar diagnostic #10 ea 10/04/20 12/04/23 Unknown History lancets 28 gauge #100 ea 10/04/20 12/04/23 Unknown History magnesium oxide 400 mg (241.3 mg 400 mg PO QAM 10/04/20 12/04/23 Unknown History magnesium) tablet simvastatin 20 mg tablet 20 mg PO DAILY 10/04/20 12/04/23 Unknown History tacrolimus 1 mg tablet,extended 8 mg PO DAILY 11/14/21 12/04/23 Unknown History release 24 hr Exam Pertinent Lab Results Pertinent Lab Results: Laboratory Tests 03/04/24 07:22 WBC 6.8 Hgb 14.5 Hct 44.6 Plt Count 121 L Sodium 143 Potassium 4.5 Chloride 111 H Carbon Dioxide 26 BUN 26 H Creatinine 1.49 H Assessment and Plan Assessment Anesthesia Assessment: Chart Reviewed Documented by User: Klaudia Garza MD 05/25/24 08:52 [facility] Past Medical History Medical History Diabetes type 2, uncontrolled Chronic kidney disease Positive TB test Lumbar degenerative disc disease COPD (chronic obstructive pulmonary disease) Diabetic nephropathy associated with type 2 diabetes mellitus Hypercalcemia Hypertension Dyslipidemia Diabetic polyneuropathy associated with type 2 diabetes mellitus Diabetes type 2, controlled Family History Family History (Updated 03/11/24 @ 10:54 by Shima Modi CMA) Father Type 2 diabetes mellitus Kidney disease Mother Polycystic kidney disease Son No problems noted. Daughter No problems noted. Brother No problems noted. Brother No problems noted. Brother No problems noted. Brother Pancreatic cancer Brother No problems noted. Family history of problems with anesthesia: No Surgical History Surgical History Hx of colonoscopy Hx of kidney transplant Hx of umbilical hernia repair History of Problems with Anesthesia: No Social History Social History Household Members: Significant Other Housing: Apartment Alcohol intake: former Patient Tobacco Use Status: Former Tobacco user Tobacco use type: Cigarette e-Cigarette/Vaping Use: Never Used Second Hand Smoke Exposure: Yes Substance Use Type: Marijuana Advance Directives: No Advance Directives Information Provided: Yes service: No Current occupational status: employed Cognitive needs: No Hearing needs: No Vision needs: No Meds Allergies Allergy/AdvReac Type Severity Reaction Status Date / Time No Known Allergies Allergy Verified 03/11/24 10:53 Home Medications ?Medication ?Instructions ?Recorded ?Confirmed ?Last Taken ?Type blood sugar diagnostic #10 ea 10/04/20 12/04/23 Unknown History lancets 28 gauge #100 ea 10/04/20 12/04/23 Unknown History magnesium oxide 400 mg (241.3 mg 400 mg PO QAM 10/04/20 12/04/23 Unknown History magnesium) tablet simvastatin 20 mg tablet 20 mg PO DAILY 10/04/20 12/04/23 Unknown History tacrolimus 1 mg tablet,extended 8 mg PO DAILY 11/14/21 12/04/23 Unknown History release 24 hr Exam Airway Mallampati Class: II TM Dist: >3cm Neck ROM: Full Denture: Upper and Lower Assessment and Plan Assessment Anesthesia Assessment: Anesthesia Plan Discussed Final Anesthetic Review Family History of Problems with Anesthesia: No History of Problems with Anesthesia: No NPO: Yes ASA Class: III Final Preanesthetic Review: No Changes in Pt Med Stat, Meds/Allgs Chart Reviewed, Consent Obtained/Reviewed and Anes Risks/Benef Reviewed Patient Risk: Low Procedure Risk: Low Anesthetic Plan Anesthetic Plan: TIVA Disposition: Standard PACU
[2024-05-25 08:54] LABS: Glucose, Whole Blood 140 mg/dL (60-115)
--- NOTE | 2024-05-25 09:13 | PC.NURSE ---
PT DID NOT STOP JARDIANCE OR TREDJENTA FOR 2 AND 3 DAYS. PT WAS SCHEDULED FOR TODAY THEN APPT CHANGED FOR AUG BUT WAS CALLED YESTERDAY AND TOOK PREP BUT DID NOT HAVE TIME TO STOP THE MEDS EDUCATED FOR AUG TOR DEFINITELY 2 NAD 3 DAY STOP
== END 2024-05-25 09:23 | disposition home or self-care (01) ==
LOC: HO.SSS 08:29
PROVIDERS: PCP Internal Medicine; Visit Provider Internal Medicine Gastroenterology
DX: Z12.11 Encounter for screening for malignant neoplasm of colon (principal); Z53.09 Procedure and treatment not carried out because of other contraindication; Z86.010 Personal history of colon polyps; E11.22 Type 2 diabetes mellitus with diabetic chronic kidney disease; I12.9 Hypertensive chronic kidney disease with stage 1 through stage 4 chronic kidney disease, or unspecified chronic kidney disease; N18.9 Chronic kidney disease, unspecified; Z94.0 Kidney transplant status; Z86.11 Personal history of tuberculosis; Z87.891 Personal history of nicotine dependence; Z79.84 Long term (current) use of oral hypoglycemic drugs; J44.9 Chronic obstructive pulmonary disease, unspecified
CPT/HCPCS: 82947

== ENCOUNTER 2024-07-22 07:57 | Outpatient (AMB) | payer MEDICARE, MEDICAID, SELFPAY ==
[2024-07-22 08:11] VITALS: BP 122/70; BMI 19.1
--- NOTE | 2024-07-22 08:11 | MHC.PC.OV ---
Vital Signs 07/22/24 08:11 Height 6 ft 0.5 in Weight 143 lb BMI 19.1 BP 122/70 Blood Pressure Location Lt brachial Position Sitting Intake Visit Reasons: DM Intake Note: Patient here for a follow up DM Tare Man Required: No Accompanied by: Self / Same As Patient Allergies No Known Allergies Allergy (Verified 07/22/24 08:21) Medication List - Last Reconciled 07/22/24 by Staci Casiano MD bisacodyl (Dulcolax (bisacodyl)) 20 mg (4 x 5 mg) PO ONCE 1 day blood sugar diagnostic (FreeStyle Lite Strips) As directed three times a day blood sugar diagnostic As directed empagliflozin 25 mg PO QAM gabapentin 100 mg PO DAILY 90 days hydrocortisone 2.5% (Proctosol HC) 1 appl MT BID-QID PRN lancets (FreeStyle Lancets) Once a day lancets As directed lisinopril 30 mg PO DAILY 90 days magnesium oxide 400 mg PO QAM polyethylene glycol 3350 (Miralax) 238 grams PO ONCE 1 day repaglinide 0.5 mg PO DAILY 30 days simvastatin 20 mg PO DAILY tacrolimus XR 8 mg PO DAILY Tradjenta (linagliptin) 5 mg PO DAILY 90 days NS Tobacco use date assessed: 03/11/24 Fall risk assessment: No Falls in past year Last assessed Fall Risk: 07/22/24 Dental Screening Dental Screen Date: 03/11/24 HPI HPI Comments History of Present Illness Details This is a 64-year-old male with diabetes mellitus type 2, hypertension, dyslipidemia, chronic kidney disease stage 3 and COPD that comes today for follow-up on his conditions. A1c elevated and I will increase repaglinide from once a day to 3 times a day. Blood pressure stable. Last LDL was within goal and this will be repeated for his next office visit. Last GFR was 48 and he does have history of kidney transplant. Aware to avoid NSAIDs. COPD stable and he was advised to quit smoking. Denies any chest pain or shortness on breath. No acute complaints. [facility] Medical History (Updated 07/22/24 @ 08:39 by Staci Casiano MD) Diabetes type 2, uncontrolled Chronic kidney disease Positive TB test Lumbar degenerative disc disease COPD (chronic obstructive pulmonary disease) Diabetic nephropathy associated with type 2 diabetes mellitus Hypercalcemia Hypertension Dyslipidemia Diabetic polyneuropathy associated with type 2 diabetes mellitus Diabetes type 2, controlled Surgical History Hx of colonoscopy Hx of kidney transplant Hx of umbilical hernia repair Family History Father Type 2 diabetes mellitus Kidney disease Mother Polycystic kidney disease Son No problems noted. Daughter No problems noted. Brother No problems noted. Brother No problems noted. Brother No problems noted. Brother Pancreatic cancer Brother No problems noted. Social History Household Members: Significant Other Housing: Apartment Alcohol intake: former Patient Tobacco Use Status: Current someday Tobacco user Tobacco use type: Cigarette e-Cigarette/Vaping Use: Never Used Second Hand Smoke Exposure: Yes Substance Use Type: Marijuana service: No Current occupational status: employed Cognitive needs: No Hearing needs: No Vision needs: No Questionnaire Thrive Questionnaire Date Thrive assessed: 03/11/24 JACOBY-7 AMB Questionnaire JACOBY-7 Date JACOBY - 7 assessed: 03/11/24 Source: Developed by Drs. Mikhail Estes, Tina Lemos, Alec Pascual and colleagues, with an educational nallely from [employer]. Review of Systems Const All systems reviewed & are unremarkable except as noted in HPI and below Card Denies chest pain at rest, Denies chest pain with activity, Denies edema, Denies irregular heart rhythm, Denies claudication, Denies dyspnea, Denies dyspnea on exertion, Denies orthopnea, Denies paroxysmal nocturnal dyspnea and Denies slow heart rate Resp Denies cough, Denies dyspnea and Denies dyspnea on exertion GI Denies abdominal pain, Denies change in bowel habits, Denies excessive flatus, Denies nausea and Denies vomiting Physical exam (Primary Care) Vital Signs: Last Vital Signs BP 122/70 07/22/24 08:11 BMI result Body Mass Index 19.1 Tobacco/Smoking Status: Tobacco use Status Tobacco use date assessed 03/11/24 07/22/24 08:14 Patient Tobacco Use Status Current someday Tobacco 07/22/24 08:14 Tobacco use type Cigarette 07/22/24 08:14 e-Cigarette/Vaping Use Never Used 08/22/24 08:14 Are you ready to quit: No Tobacco cessation counseling provided: Yes Items discussed: [employer]uit[employer] Relapse Prevention: weight gain after smoking is common Number of minutes spent counselin CPT code: Less than 3 minutes Thrive Assessment: Date of Thrive Assessment Date Thrive assessed 03/11/24 07/22/24 08:14 Resp Effort & Inspection: normal respiratory effort Auscultation: clear to auscultation bilaterally Cardio Jugular venous distension: no JVD Rate: regular rate Rhythm: regular rhythm Heart sounds: S1 normal heart sound present and S2 normal heart sound present Extrem General: Yes full ROM Results AMB Hemoglobin A1c AMB Hemoglobin A1c 7.7 % Last Edit by DEEDEE Au on 07/22/24 08:22 Assessment and Plan Assessment & Plan (1) Type 2 diabetes mellitus with hyperglycemia: Code(s): E11.65 - Type 2 diabetes mellitus with hyperglycemia Qualifiers: Diabetes mellitus rn long term care insulin use: without [place] [facility] use Qualified Code(s): E11.65 - Type 2 diabetes mellitus with hyperglycemia Plan: Continue Tradjenta and Jardiance. Increase repaglinide 2 3 times a day. A1c goal is equal or less than 7%. (2) COPD (chronic obstructive pulmonary disease): Code(s): J44.9 - Chronic obstructive pulmonary disease, unspecified Qualifiers: COPD type: emphysema Emphysema type: unspecified Qualified Code(s): J43.9 - Emphysema, unspecified Plan: Advised to quit smoking. He declines any shortness of breath and does not use rescue inhaler. (3) Hypertension: Code(s): I10 - Essential (primary) hypertension Qualifiers: Hypertension type: essential hypertension Qualified Code(s): I10 - Essential (primary) hypertension Plan: Continue lisinopril. Blood pressure goal is equal or less than 130/80. (4) Dyslipidemia: Code(s): E78.5 - Hyperlipidemia, unspecified Plan: Continue statins. LDL goal is less than 70. (5) CKD (chronic kidney disease) stage 3, GFR 30-59 ml/min: Code(s): N18.30 - Chronic kidney disease, stage 3 unspecified Qualifiers: Chronic kidney disease stage 3 subtype: stage 3a (GFR 45-59) Qualified Code(s): N18.31 - Chronic kidney disease, stage 3a Plan: Avoid NSAIDs. Keep blood pressure within goal. Orders: Orders AMB Hemoglobin A1c Today E11.65 - Type 2 diabetes mellitus with hyperglycemia Lipid Panel Today E78.5 - Hyperlipidemia, unspecified Microalbumin, Random (w Creat) Today E11.9 - Type 2 diabetes mellitus without complications Comprehensive [place]. Panel Fast Today E11.65 - Type 2 diabetes mellitus with hyperglycemia Medications: Changed From repaglinide One tablet before breakfast 0.5 mg PO DAILY 30 days 30 tabs 0RF E11.9 - Type 2 diabetes mellitus without complications To repaglinide One tablet before breakfast 0.5 mg PO TID 30 days 90 tabs 2RF E11.9 - Type 2 diabetes mellitus without complications Coding Level of Care Code Est Pt Level 4 (49945) Complex EM visit Add On G2211 Diagnoses Type 2 diabetes mellitus with hyperglycemia, without long-term current use of insulin E11.65 Diabetes mellitus [place] [facility] insulin use: without rn long term care use Pulmonary emphysema, unspecified emphysema type J43.9 COPD type: emphysema Emphysema type: unspecified Essential hypertension I10 Hypertension type: essential hypertension Dyslipidemia E78.5 Stage 3a chronic kidney disease N18.31 Chronic kidney disease stage 3 subtype: stage 3a (GFR 45-59) Time Spent (min) 22
== END 2024-07-22 08:31 | disposition home or self-care (01) ==
PROVIDERS: PCP Internal Medicine; Visit Provider Internal Medicine
DX: I12.9 Hypertensive chronic kidney disease with stage 1 through stage 4 chronic kidney disease, or unspecified chronic kidney disease (principal); E11.22 Type 2 diabetes mellitus with diabetic chronic kidney disease; E11.65 Type 2 diabetes mellitus with hyperglycemia; N18.31 Chronic kidney disease, stage 3a; J43.9 Emphysema, unspecified; E78.5 Hyperlipidemia, unspecified
CPT/HCPCS: 83036; 99214; G2211

== ENCOUNTER 2024-08-24 11:01 | Day surgery (SDC) | payer MEDICARE, MEDICAID, SELFPAY ==
--- NOTE | 2024-08-24 11:31 | MHC.SHP ---
Pre-Procedural Eval Section A - 24 Hr Update-Section A only Date of Service: 08/24/24 Section B - Complete if H&P > 30 days Chief Complaint: screening Relevant Family History (Specify if Yes): No Relevant Social History: None Present Medications: see Short Stay Collaborative assessment Medical History: Significant History (Diabetes type 2, uncontrolled Chronic kidney disease Positive TB test Lumbar degenerative disc disease COPD (chronic obstructive pulmonary disease) Diabetic nephropathy associated with type 2 diabetes mellitus Hypercalcemia Hypertension Dyslipidemia Diabetic polyneuropathy associated with type 2 lizette) History of Previous Operations: Relevant previous surgery/procedure and date(s) ( Hx of colonoscopy Hx of kidney transplant Hx of umbilical hernia repair) Allergies: Allergies Allergy/AdvReac Type Severity Reaction Status Date / Time No Known Allergies Allergy Verified 07/22/24 08:21 Review of Systems Sugical H&P ROS: Negative: Constitution, Cardiovascular, Respiratory, Neurological, Psychiatric, Hem-Onc, Allergic/Immunologic, Gastrointestinal, Genitourinary, Musculoskeletal, Integumentary, Endocrine and Eyes/Ears/Nose/Throat Exam Surgical H&P Exam: Normal: HEENT, Normal: Heart, Normal: Lungs, Normal: Extremities, Normal: Abdomen, Normal: Skin and Normal: Neurological Plan Diagnosis/Plan: Unchanged I have reviewed the history and physical and performed a pertinent physical examination on my patient. No changes have occurred unless specified. Time Spent With Patient Time: Total time managing care of this patient today ____ minutes.
[2024-08-24 11:32] VITALS: BMI 18.4
[2024-08-24 11:32] LABS: Glucose, Whole Blood 130 mg/dL (60-115)
[2024-08-24] MEDS: Lactated Ringers 1,000 ML 100 ML IVCONT (11:36)
--- NOTE | 2024-08-24 11:45 | HO.ANESPROP2 ---
Documented by User: Sakshi Morgan NP 08/23/24 09:53 HPI - Anesthesia Eval Consult details Narrative: 63yo M for Colonoscopy s/p renal transplant (ESRD) 2013. Stable at 03/2024 nephrology office visit. Anesthesia Pre-Procedure Meds Is the patient on any of the following meds?: GLP1/DPP4 and SGLT2 Inhib PMFSH Active Problems Active Problems: All Active Problems CKD (chronic kidney disease) stage 3, GFR 30-59 ml/min (Acute) Medicare annual wellness visit, subsequent (Acute) Hx of kidney transplant (Acute) Tubular adenoma of colon (Acute) Type 2 diabetes mellitus with hyperglycemia (Acute) Chronic kidney disease (Acute) COPD (chronic obstructive pulmonary disease) (Acute) Diabetic nephropathy associated with type 2 diabetes mellitus (Acute) Hypercalcemia (Acute) Hypertension (Acute) Dyslipidemia (Acute) Diabetic polyneuropathy associated with type 2 diabetes mellitus (Acute) Past Medical History Medical History Diabetes type 2, uncontrolled Chronic kidney disease Positive TB test Lumbar degenerative disc disease COPD (chronic obstructive pulmonary disease) Diabetic nephropathy associated with type 2 diabetes mellitus Hypercalcemia Hypertension Dyslipidemia Diabetic polyneuropathy associated with type 2 diabetes mellitus Diabetes type 2, controlled Family History Family History Father Type 2 diabetes mellitus Kidney disease Mother Polycystic kidney disease Son No problems noted. Daughter No problems noted. Brother No problems noted. Brother No problems noted. Brother No problems noted. Brother Pancreatic cancer Brother No problems noted. Family history of problems with anesthesia: No Surgical History Surgical History Hx of colonoscopy Hx of kidney transplant Hx of umbilical hernia repair History of Problems with Anesthesia: No Social History Social History Household Members: Significant Other Housing: Apartment Alcohol intake: former Patient Tobacco Use Status: Current someday Tobacco user Tobacco use type: Cigarette Cigarettes Per Day: 1 e-Cigarette/Vaping Use: Never Used Second Hand Smoke Exposure: Yes Substance Use Type: Marijuana Substance Use Frequency: Monthly Have you been hit, kicked, punched, or otherwise hurt by someone within the past year? If so, by whom?: No Are you DNR?: No Advance Directives: No Advance Directives Information Provided: Yes Recently lost weight without trying: No Nutrition Risks: No Nutritional Risk service: No Current occupational status: employed Cognitive needs: No Hearing needs: No Vision needs: No Meds Allergies Allergy/AdvReac Type Severity Reaction Status Date / Time No Known Allergies Allergy Verified 07/22/24 08:21 Home Medications ?Medication ?Instructions ?Recorded ?Confirmed ?Last Taken ?Type blood sugar diagnostic #10 ea 10/04/20 07/22/24 Unknown History lancets 28 gauge #100 ea 10/04/20 07/22/24 Unknown History magnesium oxide 400 mg (241.3 mg 400 mg PO QAM 10/04/20 07/22/24 Unknown History magnesium) tablet simvastatin 20 mg tablet 20 mg PO DAILY 10/04/20 07/22/24 Unknown History tacrolimus 1 mg tablet,extended 8 mg PO DAILY 11/14/21 07/22/24 Unknown History release 24 hr empagliflozin 10 mg tablet 10 mg PO QAM 08/23/24 Unknown History (Jardiance) linagliptin 5 mg tablet (Tradjenta) 5 mg PO DAILY 08/23/24 08/19/24 History Exam Pertinent Lab Results Pertinent Lab Results: Laboratory Tests 03/04/24 07:22 WBC 6.8 Hgb 14.5 Hct 44.6 Plt Count 121 L Sodium 143 Potassium 4.5 Chloride 111 H Carbon Dioxide 26 BUN 26 H Creatinine 1.49 H Assessment and Plan Assessment Anesthesia Assessment: Chart Reviewed Final Anesthetic Review Family History of Problems with Anesthesia: No History of Problems with Anesthesia: No Documented by User: Cassia Frank DO 08/24/24 11:48 HPI - Anesthesia Eval Anesthesia Pre-Procedure Meds Is the patient on any of the following meds?: GLP1/DPP4 and SGLT2 Inhib PMFSH Past Medical History Medical History Diabetes type 2, uncontrolled Chronic kidney disease Positive TB test Lumbar degenerative disc disease COPD (chronic obstructive pulmonary disease) Diabetic nephropathy associated with type 2 diabetes mellitus Hypercalcemia Hypertension Dyslipidemia Diabetic polyneuropathy associated with type 2 diabetes mellitus Diabetes type 2, controlled Family History Family History Father Type 2 diabetes mellitus Kidney disease Mother Polycystic kidney disease Son No problems noted. Daughter No problems noted. Brother No problems noted. Brother No problems noted. Brother No problems noted. Brother Pancreatic cancer Brother No problems noted. Family history of problems with anesthesia: No Surgical History Surgical History Hx of colonoscopy Hx of kidney transplant Hx of umbilical hernia repair History of Problems with Anesthesia: No Social History Social History Household Members: Significant Other Housing: Apartment Alcohol intake: former Patient Tobacco Use Status: Current someday Tobacco user Tobacco use type: Cigarette Cigarettes Per Day: 1 e-Cigarette/Vaping Use: Never Used Second Hand Smoke Exposure: Yes Substance Use Type: Marijuana Substance Use Frequency: Monthly Have you been hit, kicked, punched, or otherwise hurt by someone within the past year? If so, by whom?: No Are you DNR?: No Advance Directives: No Advance Directives Information Provided: Yes Recently lost weight without trying: No Nutrition Risks: No Nutritional Risk service: No Current occupational status: employed Cognitive needs: No Hearing needs: No Vision needs: No Meds Allergies Allergy/AdvReac Type Severity Reaction Status Date / Time No Known Allergies Allergy Verified 07/22/24 08:21 Home Medications ?Medication ?Instructions ?Recorded ?Confirmed ?Last Taken ?Type blood sugar diagnostic #10 ea 10/04/20 07/22/24 Unknown History lancets 28 gauge #100 ea 10/04/20 07/22/24 Unknown History magnesium oxide 400 mg (241.3 mg 400 mg PO QAM 10/04/20 07/22/24 Unknown History magnesium) tablet simvastatin 20 mg tablet 20 mg PO DAILY 10/04/20 07/22/24 Unknown History tacrolimus 1 mg tablet,extended 8 mg PO DAILY 11/14/21 07/22/24 Unknown History release 24 hr empagliflozin 10 mg tablet 10 mg PO QAM 08/23/24 Unknown History (Jardiance) linagliptin 5 mg tablet (Tradjenta) 5 mg PO DAILY 08/23/24 08/19/24 History Exam Exam Date and Time: 08/24/24 1145 Height,Weight and Vital Signs: Height 6 ft 2 in Weight 64.864 kg Airway Mallampati Class: II TM Dist: >3cm Neck ROM: Full Denture: Upper and Lower Heart: S1S2 Lungs: Diminished bilaterally Assessment and Plan Assessment Anesthesia Assessment: Anesthesia Plan Discussed and Chart Reviewed Final Anesthetic Review Family History of Problems with Anesthesia: No History of Problems with Anesthesia: No NPO: Yes ASA Class: III Final Preanesthetic Review: No Changes in Pt Med Stat, Meds/Allgs Chart Reviewed, Consent Obtained/Reviewed and Anes Risks/Benef Reviewed Patient Risk: Intermediate Procedure Risk: Low Anesthetic Plan Anesthetic Plan: MAC: and Agree w/ Assess. and Plan Disposition: Standard PACU
--- NOTE | 2024-08-24 12:43 | HO.OPN-COLON ---
Colonoscopy Operative Note Operative Note Date of Service: 08/24/24 Narrative: Operative Information Procedure Description: Colonoscopy Indication: colo screening Anesthesia: MAC COLONOSCOPY Instrument: Olympus variable stiffness pediatric scope 190L Colonoscopy Monitoring: Vital signs and clinical assessment, continuous EKG monitoring, Pulse oximetry, Carbon Dioxide monitoring and blood pressure monitoring were done throughout the procedure. Colon withdrawal time was 16 minutes. Procedure: The patient was placed in the left lateral decubitis position and pre-procedure medications were administered. After a digital rectal examination of the ano-rectum, the video colonoscope was inserted into the rectum and advanced through the colon to the cecum/TI. The colonoscope was slowly withdrawn in a retrograde panoramic fashion and the colon mucosa was carefully examined including a retroflexed view of the rectum. Findings and interventions are described below. Procedure Difficulty: easy Findings: Terminal Ileum-normal Cecum:normal, 4-5 mm sessile polyp removed with cold forceps Ascending Colon: 6-8 mm sessile polyp removed with cold snare Transverse Colon -normal Descending Colon:normal Sigmoid Colon:moderate diverticulosis, 10 mm sessile polyp removed with cold snare Rectum: Retroflexion with small internal hemorrhoids seen, grade I Anorectum - normal, small rectal prolapse Intervention: cold forceps, cold snare Colon preparation: [place] Bowel Preparation Scale Right colon; 1-2 Transverse colon: 2 Left colon; 2- some areas fair (0 = Unprepared colon segment with mucosa not seen due to solid stool that cannot be cleared. 1 = Portion of mucosa of the colon segment seen, but other areas of the colon segment not well seen due to staining, residual stool and/or opaque liquid. 2 = Minor amount of residual staining, small fragments of stool and/or opaque liquid, but mucosa of colon segment seen well. 3 = Entire mucosa of colon segment seen well with no residual staining, small fragments of stool or opaque liquid) Impression and Post Procedure Diagnosis: diverticulosis colon polyps internal hemorrhoids Plan: High fiber diet leaflet Avoid straining at stool, epsom salts and sitz bath, anusol supps or cream Repeat Colonoscopy in 1 year due to areas of fair prep or earlier if clinically indicated Above findings were reviewed with the patient and relevant handouts were provided if indicated.
[2024-08-24 12:51] VITALS: BP 97/55; PULSE 55; RESP 16; TEMP 36.1; O2SAT 99
[2024-08-24 13:05] VITALS: BP 126/67; PULSE 67; RESP 16; O2SAT 98
[2024-08-24 13:20] VITALS: BP 135/70; PULSE 59; RESP 16; TEMP 36.1; O2SAT 98
== END 2024-08-24 13:57 | disposition home or self-care (01) ==
PROVIDERS: PCP Internal Medicine; Visit Provider Internal Medicine Gastroenterology
PROC: 0DJD8ZZ Inspection of Lower Intestinal Tract, Via Natural or Artificial Opening Endoscopic (ICD-10-PCS; CPT 45378; principal; 2024-08-24 10:10)
DX: Z12.11 Encounter for screening for malignant neoplasm of colon (principal); K63.5 Polyp of colon; K57.30 Diverticulosis of large intestine without perforation or abscess without bleeding; K64.0 First degree hemorrhoids; K62.3 Rectal prolapse; E11.22 Type 2 diabetes mellitus with diabetic chronic kidney disease; I12.9 Hypertensive chronic kidney disease with stage 1 through stage 4 chronic kidney disease, or unspecified chronic kidney disease; N18.30 Chronic kidney disease, stage 3 unspecified; Z94.0 Kidney transplant status; E78.5 Hyperlipidemia, unspecified; J44.9 Chronic obstructive pulmonary disease, unspecified; F17.210 Nicotine dependence, cigarettes, uncomplicated; F12.90 Cannabis use, unspecified, uncomplicated; Z79.02 Long term (current) use of antithrombotics/antiplatelets; Z79.899 Other long term (current) drug therapy
CPT/HCPCS: 45385; 45380; 82947; 88305; J1596; J2371; J2704

== ENCOUNTER → 2024-08-24 11:01 | Outpatient (BNV) | payer MEDICARE, MEDICAID, SELFPAY | PROVIDERS: PCP Internal Medicine; Visit Provider Internal Medicine Gastroenterology | DX: Z12.11 Encounter for screening for malignant neoplasm of colon (principal); D12.0 Benign neoplasm of cecum; D12.2 Benign neoplasm of ascending colon; D12.5 Benign neoplasm of sigmoid colon; K57.30 Diverticulosis of large intestine without perforation or abscess without bleeding; K64.0 First degree hemorrhoids; K62.3 Rectal prolapse | CPT/HCPCS: 45380; 45385 ==

== ENCOUNTER 2024-09-02 15:30 | Outpatient (AMB) | payer MEDICARE, MEDICAID, SELFPAY ==
--- NOTE | 2024-09-02 15:45 | MHC.PC.OV ---
Vital Signs 09/02/24 15:48 Height 6 ft 2 in Weight 145 lb 6 oz BMI 18.7 BP 120/80 Blood Pressure Location Lt brachial Position Sitting Pulse 61 Pulse Source Pulse Oximeter Pulse Oximetry (%) 98 Oxygen Delivery Method Room Air Intake Visit Reasons: 3m f/u Intake Note: Patient is here to follow up on DM, HTN, COPD. Director Of Safety And Security Required: No Sales Associate Key Holder: Not Required per policy Accompanied by: Self / Same As Patient Allergies No Known Allergies Allergy (Verified 09/02/24 15:47) Tobacco use date assessed: 09/02/24 Fall risk assessment: No Falls in past year Last assessed Fall Risk: 09/02/24 Dental Screening Dental Screen Date: 03/11/24 HPI 3m f/u HPI Details 64-year-old male underweight with diabetes mellitus history of kidney transplant chronic kidney disease hypertension hypercholesterolemia last seen in March 2024. Patient just had colonoscopy. Done but with the fair prep patient was advised to repeat in 1 year. Patient also has seen my colleague in July noted hemoglobin A1c of 7.7 patient on Tradjenta and Jardiance and increase repaglinide 2 3 times a day. Patient is up-to-date with Podiatry. Has met with Nephrology in June 11 chronic kidney disease stage IIIB creatinine of 1.7 stable electrolytes advised remain well hydrated patient on Envarsus monotherapy continuing to monitor tacrolimus level between 6 and 9 PFSH Medical History (Updated 09/02/24 @ 16:25 by Carla Burns MD) Tubular adenoma of colon Diabetes type 2, uncontrolled Positive TB test Lumbar degenerative disc disease COPD (chronic obstructive pulmonary disease) Diabetic nephropathy associated with type 2 diabetes mellitus Hypercalcemia Hypertension Dyslipidemia Diabetic polyneuropathy associated with type 2 diabetes mellitus Diabetes type 2, controlled Surgical History Hx of colonoscopy Hx of kidney transplant Hx of umbilical hernia repair Family History Father Type 2 diabetes mellitus Kidney disease Mother Polycystic kidney disease Son No problems noted. Daughter No problems noted. Brother No problems noted. Brother No problems noted. Brother No problems noted. Brother Pancreatic cancer Brother No problems noted. Social History Household Members: Significant Other Housing: Apartment Alcohol intake: former Patient Tobacco Use Status: Former Tobacco user Tobacco use type: Cigarette Cigarettes Per Day: 1 e-Cigarette/Vaping Use: Never Used Second Hand Smoke Exposure: Yes Substance Use Type: Marijuana service: No Current occupational status: employed Cognitive needs: No Hearing needs: No Vision needs: No Questionnaire Thrive Questionnaire Date Thrive assessed: 03/11/24 Are you currently unemployed and looking for a job?: I choose not to answer this question JACOBY-7 AMB Questionnaire JACOBY-7 Date JACOBY - 7 assessed: 03/11/24 Source: Developed by Drs. Mikhail Estes, Tina Lemos, Alec Pascual and colleagues, with an educational nallely from [employer]. Physical exam (Primary Care) Vital Signs: Last Vital Signs Pulse 61 09/02/24 15:48 BP 120/80 09/02/24 15:48 Pulse Ox 98 09/02/24 15:48 Oxygen Delivery Method Room Air 09/02/24 15:48 BMI result Body Mass Index 18.7 Tobacco/Smoking Status: Tobacco use Status Tobacco use date assessed 09/02/24 09/02/24 15:54 Patient Tobacco Use Status Former Tobacco user 09/02/24 15:54 Tobacco use type Cigarette 09/02/24 15:54 e-Cigarette/Vaping Use Never Used 09/02/24 15:54 Thrive Assessment: Date of Thrive Assessment Date Thrive assessed 03/11/24 09/02/24 15:54 Const General: alert; No acute distress Eyes Conjunctivae: conjunctivae normal Resp Auscultation: clear to auscultation bilaterally Cardio Rate: regular rate Rhythm: regular rhythm GI Inspection: Yes normal to inspection Extrem General: Yes normal to inspection and No edema Office Procedures Flu Questionnaire Does the patient have a severe egg allergy?: No Does the patient have severe life threatening allergies?: No Does the patient have a fever or illness today?: No Has the patient ever had Guillain-Warwick Syndrome?: No Has the patient ever had any past reaction to a flu shot?: No Immunizations Fluarix Triv 1615-3600 (PF) 45 mcg (15 mcg x 3)/0.5 mL IM syringe Performing Provider: Carla Burns MD [facility] Administered by: YOANA Villa on 09/02/24 16:10 Dose Route Admin Location Dispensed Lot Number Expiration Date NDC Hog Driver 0.5 mL IM Left Deltoid 0.5 mL [id number] 05/30/25 [id number] [employer] VIS Given Date VIS Provided VIS Publication Date 09/02/24 Single Vaccine 21 Eligibility Eligibility Date Funding Source Not [facility] Eligible 09/02/24 Private Coding Level of Care Code Est Pt Level 4 (70322) Diagnoses Type 2 diabetes mellitus with hyperglycemia, without long-term current use of insulin E11.65 Diabetes mellitus fci insulin use: without cardiac catheterization technician use Hx of kidney transplant Z94.0 Stage 3a chronic kidney disease N18.31 Chronic kidney disease stage 3 subtype: stage 3a (GFR 45-59) Essential hypertension I10 Hypertension type: essential hypertension Dyslipidemia E78.5 Pulmonary emphysema, unspecified emphysema type J43.9 COPD type: emphysema Emphysema type: unspecified Assessment & Plan Assessment & Plan (1) Type 2 diabetes mellitus with hyperglycemia: Comment: Dr. Diego Code(s): E11.65 - Type 2 diabetes mellitus with hyperglycemia Category: Medical Qualifiers: Diabetes mellitus fci insulin use: without cardiac catheterization technician use Qualified Code(s): E11.65 - Type 2 diabetes mellitus with hyperglycemia Plan: Decrease the amount of carbohydrate intake, pasta, bread, rice and potatoes are all sugar and that is aside from all the sweet stuff, remember that fruits are good but they are Sweet also. Hemoglobin A1c goal of less than 7.0. On Jardiance 10 mg once a day Tradjenta 5 mg once a day repaglinide increased recently to 3 times a day. (2) Hx of kidney transplant: Comment: Polycystic kidney disease, December 2013 renal transplant [facility] Code(s): Z94.0 - Kidney transplant status Category: Surgical Plan: Continue to follow-up with Nephrology (3) CKD (chronic kidney disease) stage 3, GFR 30-59 ml/min: Code(s): N18.30 - Chronic kidney disease, stage 3 unspecified Category: Medical Qualifiers: Chronic kidney disease stage 3 subtype: stage 3a (GFR 45-59) Qualified Code(s): N18.31 - Chronic kidney disease, stage 3a Plan: Continue well hydration continue to follow-up with Nephrology (4) Hypertension: Code(s): I10 - Essential (primary) hypertension Category: Medical Qualifiers: Hypertension type: essential hypertension Qualified Code(s): I10 - Essential (primary) hypertension Plan: Continue with blood pressure medication. Decrease salt intake and exercise on lisinopril 30 mg once a day (5) Dyslipidemia: Code(s): E78.5 - Hyperlipidemia, unspecified Category: Medical Plan: Avoid fried foods, chicken skin, eggs, butter margarine, pastries and meat. Be it pork or beef they have a lot of cholesterol 03/2024 last blood work on simvastatin 20 mg once a day (6) COPD (chronic obstructive pulmonary disease): Code(s): J44.9 - Chronic obstructive pulmonary disease, unspecified Category: Medical Qualifiers: COPD type: emphysema Emphysema type: unspecified Qualified Code(s): J43.9 - Emphysema, unspecified Plan: Stop smoking! Orders: Orders Influenza [id number] Immunization Today Z23 - Encounter for immunization
[2024-09-02 15:48] VITALS: BP 120/80; PULSE 61; O2SAT 98; BMI 18.7
== END 2024-09-02 16:28 | disposition home or self-care (01) ==
PROVIDERS: PCP Internal Medicine; Visit Provider Internal Medicine
DX: I12.9 Hypertensive chronic kidney disease with stage 1 through stage 4 chronic kidney disease, or unspecified chronic kidney disease (principal); E11.65 Type 2 diabetes mellitus with hyperglycemia; N18.31 Chronic kidney disease, stage 3a; J43.9 Emphysema, unspecified; Z23 Encounter for immunization; Z94.0 Kidney transplant status; E78.5 Hyperlipidemia, unspecified

== ENCOUNTER → 2024-09-02 15:30 | Outpatient (BNVA) | payer MEDICARE, MEDICAID, SELFPAY | PROVIDERS: PCP Internal Medicine; Visit Provider Internal Medicine | DX: Z23 Encounter for immunization (principal); E11.65 Type 2 diabetes mellitus with hyperglycemia; I12.9 Hypertensive chronic kidney disease with stage 1 through stage 4 chronic kidney disease, or unspecified chronic kidney disease; E11.22 Type 2 diabetes mellitus with diabetic chronic kidney disease; N18.31 Chronic kidney disease, stage 3a; E78.5 Hyperlipidemia, unspecified; J43.9 Emphysema, unspecified; Z94.0 Kidney transplant status | CPT/HCPCS: 90471; 90656; 99212 ==

== ENCOUNTER 2024-09-07 10:03 | Outpatient (AMB) | payer MEDICARE, MEDICAID, SELFPAY ==
--- NOTE | 2024-09-07 10:13 | MHC.OFFVIS ---
Vital Signs 09/07/24 10:18 Height 6 ft 2 in Weight 147 lb 11.355 oz BMI 19.0 BP 130/76 Blood Pressure Location Rt brachial Position Sitting Pulse 66 Pulse Source Pulse Oximeter Pulse Oximetry (%) 97 Oxygen Delivery Method Room Air Intake Visit Reasons: s/p colonoscopy Intake Note: Julius presents in office today for a scheduled s/p FUV. CC: Pt denies any complications or new sx post op. Pt is here to discuss the results of their procedure. Lead Investigator Required: No Allergies No Known Allergies Allergy (Verified 09/07/24 10:14) HPI HPI s/p colonoscopy: Details: LAST VISIT Screen for colon cancer Plan Patient denies any GI, cardiac or respiratory symptoms.? Occasional blood in his stool, history of hemorrhoids. Will send patient script for Proctosol. Denies any issues with anesthesia in the past.? Denies any history of sleep apnea.? History of TB in 2009, treated for 9 months.? Not on any anticoagulation therapy.? History of tubular adenomas in the past, last colonoscopy no polyps. Patient denies melena, hematochezia, unintentional weight loss or ribbon like stools.? Discussed at length the pre-procedure,? prep, diet & medications as well as what to expect prior, during and after the procedure.?? Stressed the importance of good bowel prep. ?Recommended the use of Vaseline or Calmoseptine OTC & baby wipes with bowel movements to promote comfort.? ?Patient verbalizes understanding and agrees to plan of care.? He was given the opportunity to ask questions and all questions answered.? We will see him after the procedure.? Medications New bisacodyl (Dulcolax (bisacodyl)) take 4 tabs at noon the day before your colonoscopy 20 mg (4 x 5 mg) PO ONCE 1 day 4 tabs 0RF Z12.11 polyethylene glycol 3350 (Miralax) As directed by gastroenterology department at [facility] 238 grams PO ONCE 238 grams 0RF Z12.11 hydrocortisone 2.5% (Proctosol HC) 1 appl FL BID-QID PRN 30 grams 2RF hemorrhoids COLONOSCOPY Findings: Terminal Ileum-normal Cecum:normal, 4-5 mm sessile polyp removed with cold forceps Ascending Colon: 6-8 mm sessile polyp removed with cold snare Transverse Colon -normal Descending Colon:normal Sigmoid Colon:moderate diverticulosis, 10 mm sessile polyp removed with cold snare Rectum: Retroflexion with small internal hemorrhoids seen, grade I Anorectum - normal, small rectal prolapse Intervention: cold forceps, cold snare Colon preparation: [place] Bowel Preparation Scale Right colon; 1-2 Transverse colon: 2 Left colon; 2- some areas fair (0 = Unprepared colon segment with mucosa not seen due to solid stool that cannot be cleared. 1 = Portion of mucosa of the colon segment seen, but other areas of the colon segment not well seen due to staining, residual stool and/or opaque liquid. 2 = Minor amount of residual staining, small fragments of stool and/or opaque liquid, but mucosa of colon segment seen well. 3 = Entire mucosa of colon segment seen well with no residual staining, small fragments of stool or opaque liquid) Impression and Post Procedure Diagnosis: diverticulosis colon polyps internal hemorrhoids Plan: High fiber diet leaflet Avoid straining at stool, epsom salts and sitz bath, anusol supps or cream Repeat Colonoscopy in 1 year due to areas of fair prep or earlier if clinically indicated PATHOLOGY RESULTS Diagnosis A. Cecum, polypectomy: Colonic mucosa with prominent lymphoid aggregate; multiple additional levels examined. B. Colon, ascending, polypectomy: Vegetable material only; no colonic tissue identified. C. Colon, sigmoid, polypectomy: Hyperplastic mucosal polyp; multiple additional levels examined TODAY'S VISIT Patient is here today for follow-up and to discuss colonoscopy results. Patient denies any ill effects from the prep, anesthesia or procedure itself. Patient had 1 hyperplastic mucosal polyp in sigmoid colon, diverticulosis and hemorrhoids. Patient had suboptimal prep and will need to repeat colonoscopy in 1 year. Patient denies being constipated. Denies eating anything except having clear liquids day before procedure. Patient denies any melena, hematochezia, unintentional weight loss or ribbon like stools. Patient denies any dyspepsia, dysphagia or odynophagia. Patient denies any abdominal pain or discomfort [facility] Medical History Tubular adenoma of colon Diabetes type 2, uncontrolled Positive TB test Lumbar degenerative disc disease COPD (chronic obstructive pulmonary disease) Diabetic nephropathy associated with type 2 diabetes mellitus Hypercalcemia Hypertension Dyslipidemia Diabetic polyneuropathy associated with type 2 diabetes mellitus Diabetes type 2, controlled Surgical History Hx of colonoscopy Hx of kidney transplant Hx of umbilical hernia repair Family History Father Type 2 diabetes mellitus Kidney disease Mother Polycystic kidney disease Son No problems noted. Daughter No problems noted. Brother No problems noted. Brother No problems noted. Brother No problems noted. Brother Pancreatic cancer Brother No problems noted. Social History Household Members: Significant Other Housing: Apartment Alcohol intake: former Patient Tobacco Use Status: Former Tobacco user Tobacco use type: Cigarette Cigarettes Per Day: 1 e-Cigarette/Vaping Use: Never Used Second Hand Smoke Exposure: Yes Substance Use Type: Marijuana service: No Current occupational status: employed Cognitive needs: No Hearing needs: No Vision needs: No Review of Systems Const Denies weight gain and Denies weight loss ENT Reports no additional complaints, Denies dysphagia and Denies odynophagia Card Reports no additional complaints Resp Reports no additional complaints GI Denies abdominal pain, Denies belching, Denies melena, Denies bloating, Denies change in bowel habits, Denies dysphagia, Denies excessive flatus, Denies dyspepsia, Denies heartburn, Denies diarrhea, Denies loose stools, Denies nausea, Denies odynophagia and Denies vomiting Reports no additional complaints Musc Reports no additional complaints Neuro Reports no additional complaints Psych Reports no additional complaints Endo Reports no additional complaints Physical Exam Vital Signs: Last Vital Signs Pulse 66 09/07/24 10:18 BP 130/76 09/07/24 10:18 Pulse Ox 97 09/07/24 10:18 Oxygen Delivery Method Room Air 09/07/24 10:18 BMI result Body Mass Index 19.0 Const General: healthy appearing, no acute distress and well developed Nutritional Appearance: well nourished Orientation/consciousness: patient oriented x3 Resp Effort & Inspection: normal respiratory effort, able to speak in complete sentences, no tracheal deviation and symmetric chest movement Auscultation: clear to auscultation bilaterally Cardio Rate: regular rate GI Inspection: Yes normal to inspection and No distended Palpation (GI): Soft to palpation, not firm, nontender and No hepatosplenomegaly present Auscultation: normal bowel sounds General: Yes no CVA tenderness Back/Spine/Pelvis Back: no CVA tenderness Skin General skin exam: elasticity normal, turgor normal and dry skin Neuro General: patient oriented x3 Psych Appearance: grossly normal Mental Status: mental status grossly normal Assessment & Plan Assessment & Plan (1) Status post colonoscopy: Code(s): Z98.890 - Other specified postprocedural states Plan Suboptimal prep for colonoscopy. Currently patient does not have any GI concerning symptoms. Reports to be feeling well. Patient will return in 8 months so we can discuss going for colonoscopy. He is agreeable to this plan and verbalizes understanding of instructions. He was given the opportunity to ask questions and all questions answered. Thank you for allowing me to participate in his care Coding Level of Care Code Est Pt Level 3 (10902) Diagnoses Status post colonoscopy Z98.890 Time Spent (min) 25 Comment 15 minutes spent with patient and additional 10 minutes spent reviewing his records
[2024-09-07 10:18] VITALS: BP 130/76; PULSE 66; O2SAT 97; BMI 19.0
== END 2024-09-07 10:44 | disposition home or self-care (01) ==
PROVIDERS: PCP Internal Medicine; Visit Provider Nurse Practitioner Family
DX: Z98.890 Other specified postprocedural states (principal)
CPT/HCPCS: 99213

== ENCOUNTER → 2024-09-07 10:03 | Outpatient (BNVA) | payer MEDICARE, MEDICAID, SELFPAY | PROVIDERS: PCP Internal Medicine; Visit Provider Nurse Practitioner Family | DX: Z98.890 Other specified postprocedural states (principal) | CPT/HCPCS: 99212 ==

== ENCOUNTER 2024-12-28 08:32 | Outpatient (AMB) | payer MEDICARE, MEDICAID, SELFPAY ==
[2024-12-28 08:41] VITALS: BP 140/72; PULSE 79; O2SAT 96; BMI 19.3
--- NOTE | 2024-12-28 08:41 | MHC.PC.OV ---
Vital Signs 12/28/24 08:41 Height 6 ft 2 in Weight 150 lb BMI 19.3 BP 140/72 H Blood Pressure Location Rt brachial Position Sitting Pulse 79 Pulse Source Pulse Oximeter Pulse Oximetry (%) 96 Oxygen Delivery Method Room Air Intake Visit Reasons: DM Allergies No Known Allergies Allergy (Verified 12/28/24 08:42) Tobacco use date assessed: 12/28/24 Fall risk assessment: No Falls in past year Last assessed Fall Risk: 12/28/24 Dental Screening Dental Screen Date: 12/28/24 Did you have a dental visit in the last 12 months?: Yes Did you have a dental problem in the last 6 months where you did not have access to dental care?: No Was dental information given to patient?: Patient has dentist HPI DM HPI Details The patient is a 64-year-old male presenting with Type 2 Diabetes Mellitus. The patient's diabetes has been suboptimally controlled, with a recent HbA1c of 7.7%. He reports consistent management efforts, including ongoing finger prick blood glucose monitoring. Despite these measures, the HbA1c remains elevated at 7.6%. The patient has not experienced nausea or vomiting. Weight gain is of concern, as weight management is advised by both nephrology and cardiology. The patient also has a history of hypertension, with irregularly elevated blood pressure readings noted. The patient denies the need for an inhaler, and his breathing has been stable. Despite dietary similarities to past habits, weight gain continues, coinciding with an increase in relaxation levels. Additionally, the patient is managing Chronic Kidney Disease, with the latest recorded GFR of 48, which is indicative of renal involvement. The patient has previously been instructed on the importance of weight management due to implications for kidney health. Previous complete blood work has been conducted, but further testing is planned within three months as outlined. No additional anemic symptoms have been currently noted, which maintains the health of his blood indices. [facility] Medical History Tubular adenoma of colon Diabetes type 2, uncontrolled Positive TB test Lumbar degenerative disc disease COPD (chronic obstructive pulmonary disease) Diabetic nephropathy associated with type 2 diabetes mellitus Hypercalcemia Hypertension Dyslipidemia Diabetic polyneuropathy associated with type 2 diabetes mellitus Diabetes type 2, controlled Surgical History Hx of colonoscopy Hx of kidney transplant Hx of umbilical hernia repair Family History Father Type 2 diabetes mellitus Kidney disease Mother Polycystic kidney disease Son No problems noted. Daughter No problems noted. Brother No problems noted. Brother No problems noted. Brother No problems noted. Brother Pancreatic cancer Brother No problems noted. Social History Household Members: Significant Other Housing: Apartment Alcohol intake: former Patient Tobacco Use Status: Former Tobacco user Tobacco use type: Cigarette Cigarettes Per Day: 1 e-Cigarette/Vaping Use: Never Used Second Hand Smoke Exposure: Yes Substance Use Type: Marijuana service: No Current occupational status: employed Cognitive needs: No Hearing needs: No Vision needs: No Questionnaire PHQ-9 Over the last 2 weeks, how often have you been bothered by any of the following problems? 1. Little interest or pleasure in doing things: not at all 2. Feeling down, depressed, or hopeless: not at all 3. Trouble falling or staying asleep, or sleeping too much: not at all 4. Feeling tired or having little energy: not at all 5. Poor appetite or overeating: not at all 6. Feeling bad about yourself - or that you are a failure or have let yourself or your family down: not at all 7. Trouble concentrating on things, such as reading the newspaper or watching television: not at all 8. Moving or speaking so slowly that other people could have noticed. Or the opposite - being so fidgety or restless that you have been moving around a lot more than usual: not at all 9. Thoughts that you would be better off or of hurting yourself in some way: not at all Total score: 0 Depression Screening Interpretation: Negative Depression Screening Done: Yes [id number] - PHQ-9 Billing: Yes Source: Developed by Drs. Mikhail Estes, Tina Lemos, Alec Pascual and colleagues, with an educational nallely from [employer] Thrive Questionnaire Date Thrive assessed: 12/28/24 I am a: Patient What is your living situation today?: I have a steady place to live Within the past 12 months, did the food you bought not last and you didn't have the money to get more?: Never true Within the past 12 months, did you worry whether your food would run out before you got money to buy more?: Never true Do you have trouble paying for medicines?: No Do you have trouble getting transportation to medical appointments?: No Do you have trouble paying your heating and electricity bill?: No Do you have trouble taking care of your child, family member or friend?: No Do you have trouble with day-to-day activities such as bathing, preparing meals, shopping, managing finances, etc.?: No Are you currently unemployed and looking for a job?: I choose not to answer this question Are you interested in more education?: No Currently or been in a relationship where the following occur: No concerns reported THRIVE Score: 0 AUDIT C Alcohol Use Questionnaire (AUDIT-C) 1. How often do you have a drink containing alcohol?: Never 3. How often do you have six or more drinks on one occasion?: Never Total Score: 0 JACOBY-7 AMB Questionnaire JACOBY-7 Date JACOBY - 7 assessed: 12/28/24 Feeling nervous, anxious, or on edge: 0 = Not at all Not being able to stop or control worryin = Not at all Worrying too much about different things: 0 = Not at all Trouble relaxin = Not at all Being so restless that it is hard to sit still: 0 = Not at all Becoming easily annoyed or irritable: 0 = Not at all Feeling afraid as if something awful might happen: 0 = Not at all Total JACOBY-7 score (0-4 normal; 5-9 mild; 10-14 moderate; 15-21 severe): 0 Source: Developed by Drs. Mikhail Estes, Tina Lemos, Alec Pascual and colleagues, with an educational nallely from [employer] Physical exam (Primary Care) Vital Signs: Last Vital Signs Pulse 79 12/28/24 08:41 BP 140/72 H 12/28/24 08:41 Pulse Ox 96 12/28/24 08:41 Oxygen Delivery Method Room Air 12/28/24 08:41 BMI result Body Mass Index 19.3 Tobacco/Smoking Status: Tobacco use Status Tobacco use date assessed 12/28/24 12/28/24 08:45 Patient Tobacco Use Status Former Tobacco user 12/28/24 08:45 Tobacco use type Cigarette 12/28/24 08:45 e-Cigarette/Vaping Use Never Used 12/28/24 08:45 PHQ-9: PHQ-9 Score PHQ-9: Total score 0 12/28/24 08:45 Depression Screening Interpretation: Negative Thrive Assessment: Date of Thrive Assessment Date Thrive assessed 12/28/24 12/28/24 08:45 Currently or been in a relationship where the following occur: No concerns reported Const General: alert; No acute distress Eyes Conjunctivae: conjunctivae normal Resp Auscultation: clear to auscultation bilaterally Cardio Rate: regular rate Rhythm: regular rhythm GI Inspection: Yes normal to inspection Extrem General: Yes normal to inspection and No edema Coding Level of Care Code Est Pt Level 4 (16933) Complex EM visit Add On G2211 Diagnoses Type 2 diabetes mellitus with hyperglycemia, without long-term current use of insulin E11.65 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 Qualified Code(s): E11.65 - Type 2 diabetes mellitus with hyperglycemia Plan: increase jardiance to 25 mg QD (2) COPD (chronic obstructive pulmonary disease): Code(s): J44.9 - Chronic obstructive pulmonary disease, unspecified Category: Medical Qualifiers: COPD type: emphysema Emphysema type: unspecified Qualified Code(s): J43.9 - Emphysema, unspecified (3) Hypertension: Code(s): I10 - Essential (primary) hypertension Category: Medical Qualifiers: Hypertension type: essential hypertension Qualified Code(s): I10 - Essential (primary) hypertension (4) Dyslipidemia: Code(s): E78.5 - Hyperlipidemia, unspecified Category: Medical (5) Hx of kidney transplant: Comment: Polycystic kidney disease, December 2013 renal transplant [facility] Code(s): Z94.0 - Kidney transplant status Category: Surgical Plan - Type 2 Diabetes Mellitus: Continue current diabetes management strategies, with an emphasis on improving glycemic control to reduce HbA1c. Blood glucose monitoring to continue. Patient education on adjusting lifestyle choices to enhance weight management and lower blood glucose levels is recommended. - Hypertension: Monitor blood pressure closely. Reassess lifestyle changes previously recommended by nephrology and cardiology to aid in regulation of blood pressure and enhance overall cardiovascular health. - Chronic Kidney Disease: Increase current JArdiance renal medication dosage from 10 to 25 mg for DM control renal function management. Monitor changes in renal markers and symptomatology. - Weight Management: Discuss strategies for weight reduction in light of recommendations from cardiology and nephrology. Encourage physical activity that aligns with patient capabilities to aid in managing elevated blood glucose and blood pressure. - Follow-up Care: A request for blood work has been provided to assess ongoing health parameters. Coordination with nephrology and gastroenterology planned for respective follow-ups to evaluate kidney health and gastrointestinal status. Orders: Orders Complete Blood Count Auto Diff 3 Months E11. - Type 2 diabetes mellitus with hyperglycemia Free T4 (Free Thyroxine) 3 Months E11. - Type 2 diabetes mellitus with hyperglycemia Lipid Panel 3 Months E11.65 - Type 2 diabetes mellitus with hyperglycemia, E78.00 - Pure hypercholesterolemia, unspecified Thyroid Stimulating Hormone 3 Months E11.65 - Type 2 diabetes mellitus with hyperglycemia Hemoglobin A1c 3 Months E11.65 - Type 2 diabetes mellitus with hyperglycemia AMB Hemoglobin A1c Today Z13.9 - Encounter for screening, unspecified Comprehensive Met. Panel 3 Months E11.65 - Type 2 diabetes mellitus with hyperglycemia Vitamin B12 and Folate 3 Months E11.65 - Type 2 diabetes mellitus with hyperglycemia Prostate Specific Antigen Scr 3 Months E11.65 - Type 2 diabetes mellitus with hyperglycemia Medications: New empagliflozin (Jardiance) 25 mg PO DAILY 30 tabs 4RF E11.65 - Type 2 diabetes mellitus with hyperglycemia
--- OUTSIDE RECORDS SUMMARY | 2024-12-28 08:51 | XMS_ITS | Encounter Summary ---
Author Organization [facility] Address [address] [place] [address] Phone Care Team Providers Care Sales Engineer [employer] Name Role Phone Carla Burns MD Primary Care Provider [phone] Encounter Details Date Type Department Care Team (Latest Contact Info) Description 12/22/2024 9:00 AM EST [facility] [address] [place] [address] John Dodd MD [address] [place] [address] [place] [id number] History of immunosuppressive therapy (Primary Dx); History of renal transplant; Stage 3b chronic kidney disease (HCC); Hypertension; Type 2 diabetes mellitus with diabetic chronic kidney disease (HCC); Autosomal dominant polycystic kidney disease Social History Tobacco Use Types Packs/Day Years Used Date Smoking Tobacco: Former Comments:Smoking History Inf o:Unknown Alcohol Use Standard Drinks/Week Comments No 0 (1 standard drink = 0.6 oz pure alcohol) Alcoholic Drinks/day: Occasional social drink Sex and Gender Information Value Date Recorded Sex Assigned at Not on file Legal Sex Male 4:31 PM EST Gender Identity Not on file Sexual Orientation Not on file documented as of this encounter Last Filed Vital Signs Vital Sign Reading Time Taken Comments Blood Pressure 144/70 12/22/2024 9:05 AM EST Pulse - - Temperature - - Respiratory Rate - - Oxygen Saturation - - Inhaled Oxygen Concentration - - Weight - - Height - - Body Mass Index - - documented in this encounter H&P Notes * John Dodd MD - 12/22/2024 9:00 AM EST PATIENT: Julius Diana : 1960 ENCOUNTER: 12/22/2024 PCP: Carla Burns MD Julius Diana is a 64 y.o. year old patient with a history of ESRD and is s/p kidney transplantation presenting for routine transplant follow up. Renal Disease secondary to: PCKD Patient is status post: Donor Kidney Transplant Date of Transplant: December 17, 2013 at [facility] Immunosuppression: Tacrolimus 5 mg twice daily Baseline Creatinine 1.5-1.7 mg In the interval since our last visit I have had the opportunity to review the following, if available: -laboratory data, imaging studies, and cardiovascular data -current medications from the patient; any changes from previous (including information from the patient's pharmacy, [facility], and Care Everywhere) -Transplant Data Sheet During this visit I had the opportunity for a full review of systems and limited physical exam as outlined below, with the pertinent findings noted and others found to be negative or noncontributory to the current assessment of this patient. HPI and recent/active issues include: Julius is doing well. He has no complaints. He had a respiratory illness couple of weeks ago. I notethat his urine protein was up with his most recent lab result. He remains on an SGLT2 inhibitor andan ACEi. His creatinine is stable at 1.4 mg/dl. He continues to smoke. We had a long discussion about this. ROS: Constitutional: No fever. Respiratory: No shortness of breath. Cardiovascular: No chest pain. Gastrointestinal: No abdominal pain, nausea or vomiting, no change in appetite. Genitourinary: No hematuria, pain, or difficulty voiding. Tolerating and compliant with medications GENERAL MEDICAL HISTORY: Patient Active Problem List Diagnosis Date Noted ??? Stage 3b chronic kidney disease (HCC) 06/10/2024 ??? Type 2 diabetes mellitus without complication (HCC) ??? Chronic kidney disease stage 3A (HCC) 01/30/2022 ??? Hypomagnesemia 10/02/2021 ??? Hyperlipidemia 11/14/2020 ??? Hypophosphatemia 09/22/2020 ??? Chronic kidney disease due to hypertension 01/04/2020 ??? Chronic kidney disease due to type 2 diabetes mellitus (HCC) 01/04/2020 ??? History of renal transplant 01/04/2020 ??? Autosomal dominant polycystic kidney disease 01/04/2020 ??? History of immunosuppressive therapy 01/04/2020 ??? Essential hypertension 01/04/2020 MEDICATIONS: Outpatient Encounter Medications as of 12/22/2024 Medication Sig Dispense Refill ??? FREESTYLE LITE test strip DIRECTED ONE A DAY IN VITRO 90 DAYS ??? gabapentin (NEURONTIN) 100 MG capsule Take by mouth 1 (one) time each day ??? Jardiance 25 MG tablet Take 25 mg by mouth 1 (one) time each day ??? Lancets (FREESTYLE) lancets DIRECTED ONE A DAY USE DIRECTED 90 DAYS ??? lisinopril (PRINIVIL,ZESTRIL) 30 MG tablet Take 1 tablet (30 mg total) by mouth in the morning. ??? magnesium oxide 400 (240 Mg) MG tablet TAKE 1 TABLET BY MOUTH EVERY DAY IN THE MORNING 90 tablet 3 ??? repaglinide (PRANDIN) 0.5 MG tablet Take 0.5 mg by mouth in the morning and 0.5 mg at noon and 0.5 mg in the evening. Take before meals. ??? simvastatin (ZOCOR) 20 MG tablet Take 1 tablet (20 mg total) by mouth 1 (one) time each day 90 tablet 4 ??? Tacrolimus ER (Envarsus XR) 1 MG tablet sustained-release 24 hour Take 7 mg by mouth 1 (one) time each day 210 tablet 11 ??? Tradjenta 5 MG tablet Take 10 mg by mouth 1 (one) time each day 90 tablet 3 ??? [DISCONTINUED] Tacrolimus ER (Envarsus XR) 1 MG tablet sustained-release 24 hour Take 8 mg by mouth 1 (one) time each day 240 tablet 11 No facility-administered encounter medications on file as of 12/22/2024. PHYSICAL EXAM: BP 144/70 Constitutional: No apparent distress Cardiovascular: No friction rub or obvious JVD elevatin Pulmonary/Chest: No rales or wheezing. Abdominal: Soft and non-tender over the allograft. Extremities: Edema None LABS: Chemistry Lab Units 12/15/24 0812 10/12/24 0812 08/17/24 0751 06/08/24 0737 04/07/24 0822 02/12/24 0856 11/04/23 0833 08/12/23 0854 05/20/23 0900 03/11/23 0845 12/31/22 0940 CREATININE mg/dL 1.37* 1.50* 1.61* 1.77* 1.50* 1.34* 1.6* 1.6* 1.7* 1.6* 1.7* BUN mg/dL 22 29* 32* 40* 28* 27 29* 25* 36* 28* 31* POTASSIUM mmol/L 4.5 4.2 4.7 4.9 4.9 4.6 4.7 4.8 4.7 4.7 4.9 SODIUM mmol/L 142 142 139 138 139 142 138 138 139 140 139 CO2 mmol/L 27 CHLORIDE mmol/L 104 104 105 104 103 106 106 104 105 106 105 ALBUMIN g/dL 3.8* 3.8* 4.0 4.2 4.1 4.1 3.8 4.1 4.1 4.4 4.1 EGFRNAFR ML/MIN/1.73 M2 -- -- -- -- -- -- 47 48 47 50 46 HEMOGLOBIN A1C % -- -- -- 8.1* -- 7.6* -- -- 7.2* 6.9* 6.8* WBC AUTO x10E3/uL 6.4 6.4 6.9 8.4 6.1 6.2 4.1 5.4 5.5 6.0 5.6 HEMATOCRIT % 45.7 39.8 44.4 43.0 41.7 42.0 37.8* 41.9 41.6 43.5 40.9 HEMOGLOBIN g/dL 14.7 12.9* 14.2 13.9 13.9 13.6 12.3* 13.5* 13.7 13.8 13.4* PLATELETS AUTO x10E3/uL 123* 118* 144* 157 115* 111* 73* 124* 111* 128* 112* Bone Mineral Lab Units 12/15/24 0812 10/12/24 0812 08/17/24 0751 06/08/24 0737 04/07/24 0822 02/12/24 0856 08/12/23 0854 05/20/23 0900 03/11/23 0845 12/31/22 0940 CALCIUM mg/dL 10.0 10.2 10.3* 10.5* 10.4* 10.1 < > 10.3 < > 10.4 PHOSPHORUS mg/dL 1.9* 2.6* 2.6* 2.8 2.4* 2.7* < > 2.8 < > 2.6 PTH pg/mL -- -- -- 47 -- 34 -- 72* -- 84* VITAMIN D NG/ML -- -- -- -- -- -- -- 74.1* -- 18.9* VIT D 25 HYDROXY ng/mL -- -- -- 33.0 -- 29.6* -- -- -- -- < > = values in this interval not displayed. Urine Lab Units 12/15/24 0812 10/12/24 0812 08/17/24 0751 06/08/24 0737 04/07/24 0822 02/12/24 0856 PROT/CREAT RATIO UR mg/g creat 2,413* 606* 353* 334* 479* 624* Visit Diagnoses and Active Issues: 1. History of immunosuppressive therapy 2. History of renal transplant 3. Stage 3b chronic kidney disease (HCC) 4. Hypertension 5. Type 2 diabetes mellitus with diabetic chronic kidney disease (HCC) 6. Autosomal dominant polycystic kidney disease SUMMARY: Based on the above findings and my interpretation of the available data and medication review, the following changes and/or recommendations for further testing, monitoring, treatment options, and follow-up are provided for your review: Julius has continued to do well with stable allograft function. He remains on an SGLT2 inhibitor andACEi. Unfortunately, his proteinuria shot up significantly. This is after a recent respiratory illness. We will need to repeat his labs in a month. It certainly possible that the diabetes is affecting this. However, this was a rather sudden increase in his proteinuria. He did not have a hemoglobin A 1c done with his most recent set of labs. They will be checked next time. His weight is stable. I have asked him to stop smoking. I have made no changes in his medications. We will see him back sooner than usual given the proteinuria and diabetes issues. Orders Placed This Encounter ??? Tacrolimus level documented in this encounter Plan of Treatment Upcoming Encounters Date Type Department Care Team (Late st Contact Info) Description 01/21/2025 9:30 AM EST Office Visit [facility] [address] [address] John Dodd MD [address] [place] [phone] Scheduled Orders Name Type Priority Associated Diagnoses Orde r Schedule Tacrolimus level Lab Routine History of immunosuppressive therapy History of renal transplant Stage 3b chronic kidney disease (HCC) Hypertension Type 2 diabetes mellitus with diabetic chronic kidney disease (HCC) Autosomal dominant polycystic kidney disease Expected: 12/22/2024, Expires: 01/22/2026 documented as of this encounter Visit Diagnoses Diagnosis History of immunosuppressive therapy- Primary History of renal transplant Stage 3b chronic kidney disease (HCC) Hypertension Type 2 diabetes mellitus with diabetic chronic kidney disease (HCC) Autosomal dominant polycystic kidney disease documented in this encounter Care Teams Sales Engineer [employer] Relationship Specialty Start Date End Date Carla Burns MD [address] [place], [place] PCP - General Internal Medicine 10/29/21 documented as of this encounter
--- OUTSIDE RECORDS SUMMARY | 2024-12-28 08:51 | XMS_ITS | Clinical Summary ---
Author Organization [facility], Address [address] [place] [address] [place] [address] Phone Care Team Providers Care Music Publisher Name Role Phone Carla Burns MD Primary Care Provider [phone] Allergies No known active allergies Medications Lancets (FREESTYLE) lancets DIRECTED ONE A DAY USE DIRECTED 90 DAYS 9 Active FREESTYLE LITE test strip DIRECTED ONE A DAY IN VITRO 90 DAYS 9 Active lisinopril (PRINIVIL,ZESTR IL) 30 MG tablet Take 1 tablet (30 mg total) by mouth in the morning. 3 Active Jardiance 25 MG tablet Take 25 mg by mouth 1 (one) time each day 4 Active simvastatin (ZOCOR) 20 MG tablet Take 1 tablet (20 mg total) by mouth 1 (one) time each day 90 tablet 4 4 Active gabapentin (NEURONTIN) 100 MG capsule Take by mouth 1 (one) time each day 4 Active Tradjenta 5 MG tablet Take 10 mg by mouth 1 (one) time each day 90 tablet 3 4 Active repaglinide (PRANDIN) 0.5 MG tablet Take 0.5 mg by mouth in the morning and 0.5 mg at noon and 0.5 mg in the evening. Take before meals. Active magnesium oxide 400 (240 Mg) MG tablet TAKE 1 TABLET BY MOUTH EVERY DAY IN THE MORNING 90 tablet 3 4 Active Tacrolimus ER (Envarsus XR) 1 MG tablet sustained-relea se 24 hour Take 7 mg by mouth 1 (one) time each day 210 tablet 11 5 12/21/19 26 Active Tacrolimus ER (Envarsus XR) 1 MG tablet sustained-relea se 24 hour Take 8 mg by mouth 1 (one) time each day 240 tablet 11 4 12/14/19 25 Discontinu ed(Reorder (does not appear on AVS)) Tacrolimus ER (Envarsus XR) 1 MG tablet sustained-relea se 24 hour Take 8 mg by mouth 1 (one) time each day 240 tablet 11 5 12/21/19 25 Discontinu ed(Reorder (does not appear on AVS)) Active Problems Problem Noted Date Diagnosed Date Stage 3b chronic kidney disease 06/10/2024 Chronic kidney disease stage 3A 01/30/2022 Hypomagnesemia 10/02/2021 Hyperlipidemia 11/14/2020 Hypophosphatemia 09/22/2020 Chronic kidney disease due to hypertension 01/04 Chronic kidney disease due to type 2 diabetes me llitus 01/04/2020 History of renal transplant 01/04/2020 Autosomal dominant polycystic kidney disease 03/2020 History of immunosuppressive therapy 01/04/2020 Essential hypertension 01/04/2020 Type 2 diabetes mellitus without complication Resolved Problems Problem Noted Date Diagnosed Date Resolved Date Stage 3a chronic kidney disease 10/09/2021 03/26/2022 Encounters Date Type Department Care Team Description 12/22/2024 9:00 AM EST [facility] [address] [place] [place] [address] John Dodd MD History of immunosuppressive therapy (Primary Dx); History of renal transplant; Stage 3b chronic kidney disease (HCC); Hypertension; Type 2 diabetes mellitus with diabetic chronic kidney disease (HCC); Autosomal dominant polycystic kidney disease 12/21/2024 Telephone [facility] [address] [place] [address] Viji Soto, RAISSA rpt tacro level 10/15/2024 8:45 AM EST Office [facility] [address] [place] [address] Virgie Grajeda PA History of renal transplant (Primary Dx); History of immunosuppressive therapy; Chronic kidney disease stage 3A (HCC) from Last 3 Months Immunizations Name Administration Dates Next Due Influenza, Quadrivalent, Preservative Free 08/21 Influenza, Unspecified 09/22/2014 Pfizer SARS-COV-2 08/10/2021,12/26/2020,12/05/19 21 Pneumococcal Conjugate 13-Valent 09/01/2017 Pneumococcal Polysaccharide 12/01/2013 Zoster 01/24/2021,09/28/2020 Family History Medical History Relation Comments Kidney disease Child Diabetes Father Hypertension Father Stroke Father Autosomal Dominant Polycystic Kidney Disease Mot her Hypertension Mother Kidney disease Mother Diabetes Sibling Hypertension Sibling Kidney disease Sibling Relation Status Comments Child Father Mother Sibling Social History Tobacco Use Types Packs/Day Years [...] on file Sexual Orientation Not on file Last Filed Vital Signs Vital Sign Reading Time Taken Comments Blood Pressure 144/70 12/22/2024 9:05 AM EST Pulse 77 10/26/2019 12:00 PM EST Temperature - - Respiratory Rate 16 10/26/2019 12:00 PM EST Oxygen Saturation - - Inhaled Oxygen Concentration - - Weight 69.7 kg (153 lb 9.6 oz) 10/15/2024 8:49 A M EST Height 188 cm (6' 2 ) 10/15/2024 8:49 AM EST Body Mass Index 19.72 10/15/2024 8:49 AM EST Plan of Treatment Upcoming Encounters Date Type Department Care Team (Late st Contact Info) Description 01/21/2025 9:30 AM EST Office Visit [facility] [place] [address] [place] [address] John Dodd MD [address] [place] [address] [place] [address] Health Maintenance Due Date Last Done Comments Pneumococcal Vaccine: Pediatrics (0 to 5 Years) and At-Risk Patients (6 to 64 Years) (3 of 3 - PPSV23 or PCV20) 12/01/2018 09/01/2017, 12/01/2013 Diabetes: Ophthalmology Exam 01/04/2020 Diabetes: Pedal Pulse Checked 01/04/2020 Diabetes: Sensory Foot Exam 01/04/2020 Diabetes: Visual Foot Exam 01/04/2020 Colonoscopy (Post-Transplant Patient) 07/12/2020 Influenza Vaccine (#1) 2024 08/21/2020, 2013 Diabetes: Hemoglobin A1C 09/08/2024 024, 02/12/2024, 05/20/2023, Additional history exists Hepatitis B Vaccine Aged Out No longe r eligible based on patient's age to complete this topic Procedures Procedure Name Priority Date/Time Associated Diagnosis Comments CREATINE KINASE Routine 12/15/2024 8:12 AM EST History of renal transplant History of immunosuppressive therapy Stage 3b chronic kidney disease (HCC) Type 2 diabetes mellitus with diabetic chronic kidney disease (HCC) Hyperlipidemia, not otherwise specified Type 2 diabetes mellitus without complication (HCC) Vitamin D deficiency, not otherwise specified Hypomagnesemia Proteinuria, not otherwise specified ALT Routine 12/15/2024 8:12 AM EST History of renal transplant History of immunosuppressive therapy Stage 3b chronic kidney disease (HCC) Type 2 diabetes mellitus with diabetic chronic kidney disease (HCC) Hyperlipidemia, not otherwise specified Type 2 diabetes mellitus without complication (HCC) Vitamin D deficiency, not otherwise specified Hypomagnesemia Proteinuria, not otherwise specified AST Routine 12/15/2024 8:12 AM EST History of renal transplant History of immunosuppressive therapy Stage 3b chronic kidney disease (HCC) Type 2 diabetes mellitus with diabetic chronic kidney disease (HCC) Hyperlipidemia, not otherwise specified Type 2 diabetes mellitus without complication (HCC) Vitamin D deficiency, not otherwise specified Hypomagnesemia Proteinuria, not otherwise specified MAGNESIUM Routine 12/15/2024 8:12 AM EST History of renal transplant History of immunosuppressive therapy Stage 3b chronic kidney disease (HCC) Type 2 diabetes mellitus with diabetic chronic kidney disease (HCC) Hyperlipidemia, not otherwise specified Type 2 diabetes mellitus without complication (HCC) Vitamin D deficiency, not otherwise specified Hypomagnesemia Proteinuria, not otherwise specified TACROLIMUS LEVEL Routine 12/15/2024 8:12 AM EST History of renal transplant History of immunosuppressive therapy Stage 3b chronic kidney disease (HCC) Type 2 diabetes mellitus with diabetic chronic kidney disease (HCC) Hyperlipidemia, not otherwise specified Type 2 diabetes mellitus without complication (HCC) Vitamin D deficiency, not otherwise specified Hypomagnesemia Proteinuria, not otherwise specified PROTEIN / CREATININE RATIO, URINE Routine 12/15/2024 8:12 AM EST History of renal transplant History of immunosuppressive therapy Stage 3b chronic kidney disease (HCC) Type 2 diabetes mellitus with diabetic chronic kidney disease (HCC) Hyperlipidemia, not otherwise specified Type 2 diabetes mellitus without complication (HCC) Vitamin D deficiency, not otherwise specified Hypomagnesemia Proteinuria, not otherwise specified URINALYSIS, COMPLETE Routine 12/15/2024 8:12 AM EST History of renal transplant History of immunosuppressive therapy Stage 3b chronic kidney disease (HCC) Type 2 diabetes mellitus with diabetic chronic kidney disease (HCC) Hyperlipidemia, not otherwise specified Type 2 diabetes mellitus without complication (HCC) Vitamin D deficiency, not otherwise specified Hypomagnesemia Proteinuria, not otherwise specified RENAL FUNCTION PANEL Routine 12/15/2024 8:12 AM EST History of renal transplant History of immunosuppressive therapy Stage 3b chronic kidney disease (HCC) Type 2 diabetes mellitus with diabetic chronic kidney disease (HCC) Hyperlipidemia, not otherwise specified Type 2 diabetes mellitus without complication (HCC) Vitamin D deficiency, not otherwise specified Hypomagnesemia Proteinuria, not otherwise specified CBC AND DIFFERENTIAL Routine 12/15/2024 8:12 AM EST History of renal transplant History of immunosuppressive therapy Stage 3b chronic kidney disease (HCC) Type 2 diabetes mellitus with diabetic chronic kidney disease (HCC) Hyperlipidemia, not otherwise specified Type 2 diabetes mellitus without complication (HCC) Vitamin D deficiency, not otherwise specified Hypomagnesemia Proteinuria, not otherwise specified MICROSCOPIC EXAMINATION - DO NOT USE Routine 12/15/2024 8:12 AM EST CREATINE KINASE Routine 10/12/2024 8:12 AM EST History of renal transplant History of immunosuppressive therapy Stage 3b chronic kidney disease (HCC) Type 2 diabetes mellitus with diabetic chronic kidney disease (HCC) Hyperlipidemia, not otherwise specified Hypomagnesemia Proteinuria, not otherwise specified ALT Routine 10/12/2024 8:12 AM EST History of renal transplant History of immunosuppressive therapy Stage 3b chronic kidney disease (HCC) Type 2 diabetes mellitus with diabetic chronic kidney disease (HCC) Hyperlipidemia, not otherwise specified Hypomagnesemia Proteinuria, not otherwise specified AST Routine 10/12/2024 8:12 AM EST History of renal transplant History of immunosuppressive therapy Stage 3b chronic kidney disease (HCC) Type 2 diabetes mellitus with diabetic chronic kidney disease (HCC) Hyperlipidemia, not otherwise specified Hypomagnesemia Proteinuria, not otherwise specified MAGNESIUM Routine 10/12/2024 8:12 AM EST History of renal transplant History of immunosuppressive therapy Stage 3b chronic kidney disease (HCC) Type 2 diabetes mellitus with diabetic chronic kidney disease (HCC) Hyperlipidemia, not otherwise specified Hypomagnesemia Proteinuria, not otherwise specified TACROLIMUS LEVEL Routine 10/12/2024 8:12 AM EST History of renal transplant History of immunosuppressive therapy Stage 3b chronic kidney disease (HCC) Type 2 diabetes mellitus with diabetic chronic kidney disease (HCC) Hyperlipidemia, not otherwise specified Hypomagnesemia Proteinuria, not otherwise specified PROTEIN / CREATININE RATIO, URINE Routine 10/12/2024 8:12 AM EST History of renal transplant History of immunosuppressive therapy Stage 3b chronic kidney disease (HCC) Type 2 diabetes mellitus with diabetic chronic kidney disease (HCC) Hyperlipidemia, not otherwise specified Hypomagnesemia Proteinuria, not otherwise specified URINALYSIS, COMPLETE Routine 10/12/2024 8:12 AM EST History of renal transplant History of immunosuppressive therapy Stage 3b chronic kidney disease (HCC) Type 2 diabetes mellitus with diabetic chronic kidney disease (HCC) Hyperlipidemia, not otherwise specified Hypomagnesemia Proteinuria, not otherwise specified RENAL FUNCTION PANEL Routine 10/12/2024 8:12 AM EST History of renal transplant History of immunosuppressive therapy Stage 3b chronic kidney disease (HCC) Type 2 diabetes mellitus with diabetic chronic kidney disease (HCC) Hyperlipidemia, not otherwise specified Hypomagnesemia Proteinuria, not otherwise specified CBC AND DIFFERENTIAL Routine 10/12/2024 8:12 AM EST History of renal transplant History of immunosuppressive therapy Stage 3b chronic kidney disease (HCC) Type 2 diabetes mellitus with diabetic chronic kidney disease (HCC) Hyperlipidemia, not otherwise specified Hypomagnesemia Proteinuria, not otherwise specified MICROSCOPIC EXAMINATION - DO NOT USE Routine 10/12/2024 8:12 AM EST HEMOGLOBIN A1C Routine 06/08/2024 7:37 AM EDT History of renal transplant History of immunosuppressive therapy Chronic kidney disease stage 3A (HCC) Hyperlipidemia, not otherwise specified Type 2 diabetes mellitus without complication (HCC) Vitamin D deficiency, not otherwise specified Other iron deficiency anemia from Last 3 Months or Most Recently Relevant to Health Maintenance Results * (ABNORMAL) Urinalysis, Complete w/reflex to Culture (12/15/2024 8:12 AM EST) Only the most recent of2 resultswithin the time period is included. Specific [place], Urine >=1.030(A) 1.005 - 1.030 [facility] pH Urine 5.5 5.0 - 7.5 [facility] Color, Urine Yellow Yellow [facility] Appearance Urine Clear Clear [facility] WBC Esterase Urine Negative Negative [facility] Protein, Ur 3+(A) Negative/Tra ce [facility] Glucose, Ur 3+(A) Negative [facility] Ketones, Urine Negative Negative [facility] Blood Urine 1+(A) Negative [facility] Bilirubin Urine Negative Negative [facility] Urobilinogen Urine 0.2 0.2 - 1.0 mg/dL [facility] Nitrite, Urine Negative Negative [facility] Microscopic Examination See below: [facility] [phone] Comment:Microscopic was su cated and was performed. URINALYSIS REFLEX Comment [facility] Comment:This specimen will n ot reflex to a Urine Culture. Urine (Urine, Clean Catch) 12/15/2024 8:12 AM EST 12/15/2024 Virgie RAE LAB URINE ORDERABLES Final Re sult [facility] [address] [place] [address] * (ABNORMAL) Microscopic Examination (12/15/2024 8:12 AM EST) Only the most recent of2 resultswithin the time period is included. WBC, Urine None seen 0 - 5 /hpf [facility] RBC, Urine 3-10(A) 0 - 2 /hpf [facility] Squamous Epithelial, Urine None seen 0 - 10 /hpf [facility] Casts None seen None seen /lpf [facility] Bacteria, Urine None seen None seen/Few [facility] 12/15/2024 8:12 AM EST 12/15/2024 Virgie RAE LAB MICROBIOLOGY - GENERAL OR DERABLES Final Result [facility] [address] [place] [address] * Tacrolimus level (12/15/2024 8:12 AM EST) Only the most recent of2 resultswithin the time period is included. Tacrolimus Lvl 11.8 2.0 - 20.0 ng/mL [facility] Comment: ?Trough (immediately following ?transplant) ? 15.0 ?Trough (steady state, 2 weeks or ?more after transplant): ?3.0 - 8.0 ?Performed by LC-MS/MS technology. ?Effective January 01, 2025 the reference ? interval for Tacrolimus will be updated to: ? 5.0 - 20.0 ng/mL Blood (Blood, Venous) 12/15/2024 8:12 AM EST 12/15/2024 Narrative [facility] - 12/19/2024 2:05 AM EST Test(s) [id number] ([id number]), Blood was developed and its performance characteristics determined by [facility]. It has not been cleared or approved by the Food and Drug Administration. Virgie RAE LAB BLOOD ORDERABLES Final Re sult [facility] [place] [address] * (ABNORMAL) Protein, Total, Random Urine w/Creatinine (Protein/Creat Ratio) (12/15/2024 8:12 AM EST) Only the most recent of2 resultswithin the time period is included. Creatinine, Ur 67.0 Not Estab. mg/dL [facility] Protein, Ur 161.7 Not Estab. mg/dL [facility] Urine Protein/Creati nine Ratio 2,413(H) 0 - 200 mg/g creat [facility] Urine (Urine, Clean Catch) 12/15/2024 8:12 AM EST 12/15/2024 Virgie RAE LAB URINE ORDERABLES Final Re sult [facility] [address] [place] [address] * (ABNORMAL) CBC and Differential (12/15/2024 8:12 AM EST) Only the most recent of2 resultswithin the time period is included. WBC 6.4 3.4 - 10.8 x10E3/uL [facility] RBC 4.79 4.14 - 5.80 x10E6/uL [facility] Hemoglobin 14.7 13.0 - 17.7 g/dL [facility] Hematocrit 45.7 37.5 - 51.0 % [facility] MCV 95 79 - 97 fL [facility] MCH 30.7 26.6 - 33.0 pg [facility] MCHC 32.2 31.5 - 35.7 g/dL [facility] RDW 13.1 11.6 - 15.4 % [facility] Platelets 123(L) 150 - 450 x10E3/uL [facility] Neutrophils Relative 73 Not Estab. % [facility] Lymphocytes Relative 15 Not Estab. % [facility] Monocytes 10 Not Estab. % [facility] Eosinophils Relative 1 Not Estab. % [facility] Basophils Relative 0 Not Estab. % [facility] Neutrophils Absolute 4.8 1.4 - 7.0 x10E3/uL [facility] Lymphocytes Absolute 1.0 0.7 - 3.1 x10E3/uL [facility] Monocytes Absolute 0.6 0.1 - 0.9 x10E3/uL [facility] Eosinophils Absolute 0.0 0.0 - 0.4 x10E3/uL [facility] Basophils Absolute 0.0 0.0 - 0.2 x10E3/uL [facility] Immature Granulocytes 1 Not Estab. % [facility] Immature Grans (Absolute) 0.0 0.0 - 0.1 x10E3/uL [facility] Blood (Blood, Venous) 12/15/2024 8:12 AM EST 12/15/2024 Virgie RAE LAB BLOOD ORDERABLES Final [facility] [address] [place] [address] * ALT (12/15/2024 8:12 AM EST) Only the most recent of2 resultswithin the time period is included. ALT (SGPT) 15 0 - 44 IU/L [facility] Blood (Blood, Venous) 12/15/2024 8:12 AM EST 12/15/2024 Virgie RAE LAB BLOOD ORDERABLES Final Re sult [facility] [address] [place] [address] * AST (12/15/2024 8:12 AM EST) Only the most recent of2 resultswithin the time period is included. AST (SGOT) 18 0 - 40 IU/L [facility] Blood (Blood, Venous) 12/15/2024 8:12 AM EST 12/15/2024 Virgie RAE LAB BLOOD ORDERABLES Final Re sult [facility] [address] [place] [address] * Magnesium (12/15/2024 8:12 AM EST) Only the most recent of2 resultswithin the time period is included. Magnesium 1.9 1.6 - 2.3 mg/dL [facility] Blood (Blood, Venous) 12/15/2024 8:12 AM EST 12/15/2024 Virgie RAE LAB BLOOD ORDERABLES Final Re sult Performing Organization Address [facility]/ZIP Co de Phone Number [facility] [address] [place] [address] * CK (12/15/2024 8:12 AM EST) Only the most recent of2 resultswithin the time period is included. Creatine Kinase (CK/CPK) 78 41 - 331 U/L [facility] Blood (Blood, Venous) 12/15/2024 8:12 AM EST 12/15/2024 Virgie RAE LAB BLOOD ORDERABLES Final Re sult [facility] [address] [place] [address] * (ABNORMAL) Renal Function Panel (12/15/2024 8:12 AM EST) Only the most recent of2 resultswithin the time period is included. Glucose 215(H) 70 - 99 mg/dL [facility] BUN 22 8 - 27 mg/dL [facility] Creatinine 1.37(H) 0.76 - 1.27 mg/dL [facility] eGFR CKD-EPI CR 2020 58(L) >59 mL/min/1.7 3 [facility] BUN/Creatinine Ratio 16 10 - 24 [facility] Sodium 142 134 - 144 mmol/L [facility] Potassium 4.5 3.5 - 5.2 mmol/L [facility] Chloride 104 96 - 106 mmol/L [facility] Bicarbonate (CO2) 21 20 - 29 mmol/L [facility] Calcium 10.0 8.6 - 10.2 mg/dL [facility] Albumin 3.8(L) 3.9 - 4.9 g/dL [facility] Phosphorus 1.9(L) 2.8 - 4.1 mg/dL [facility] Blood (Blood, Venous) 12/15/2024 8:12 AM EST 12/15/2024 us Virgie RAE LAB BLOOD ORDERABLES Final Re sult [facility] [address] [place] [address] * (ABNORMAL) Hemoglobin A1c (06/08/2024 7:37 AM EDT) Hemoglobin A1C 8.1(H) 4.8 - 5.6 % [facility] Comment: ? Prediabetes: 5.7 - 6.4 ? Diabetes: >6.4 ? Glycemic control for adults with diabetes: <7.0 Blood (Blood, Venous) 06/08/2024 7:37 AM EDT 06/08/2024 Virgie RAE LAB BLOOD ORDERABLES Final Re sult [facility] [address] [place] [phone] from Last 3 Months or Most Recently Relevant to Health Maintenance Insurance MEDICARE [place]ICAID [place] Care Teams Music Publisher Relationship Specialty Start Date End Date Carla Burns MD [facility] [place] [address] [place], [place] PCP - General Internal Medicine 10/29/21
--- OUTSIDE RECORDS SUMMARY | 2024-12-28 08:51 | XMS_ITS | Encounter Summary ---
Author Organization [facility] Address [address] [place] [address] Phone Care Team Providers Care Psychiatric Attendant Name Role Phone Carla Burns MD Primary Care Provider [phone] Reason for Visit * Reason Comments Med Refill Encounter Details Date Type Department Care Team (Late Contact Info) Description 07/15/2023 Refill [facility] [address] [place] [address] Virgie Grajeda PA [address] [place] [address] [place] [address] Social History Tobacco Use Types Packs/Day Years [...] on file documented as of this encounter Plan of Treatment Upcoming Encounters Date Type Department Care Team (Late st Contact Info) Description 01/21/2025 9:30 AM EST [facility] [address] [place] [address] John Dodd MD [address] [place] [address] [place] [address] documented as of this encounter Visit Diagnoses Not on filedocumented in this encounter Care Teams Psychiatric Attendant Relationship Specialty Start Date End Date Carla Burns MD [facility] [address] [place] PCP - General Internal Medicine 10/29/21 documented as of this encounter
--- OUTSIDE RECORDS SUMMARY | 2024-12-28 08:51 | XMS_ITS | Encounter Summary ---
Author Organization [facility] [place], Address [address] [place] [address] Phone Care Team Providers Care Sink Cutter Name Role Phone Carla Burns MD Primary Care Provider [phone] Reason for Visit * Reason Onset Date Comments rpt tacro level 12/21/2024 Encounter Details Date Type Department Care Team ([facility] st Contact Info) Description 12/21/2024 Telephone [facility] [address] [place] [phone] Viji Soto, RN [address] [place] [address] [place] [phone] rpt tacro level Social History Tobacco Use Types Packs/Day Years [...] on file documented as of this encounter Miscellaneous Notes * Telephone Encounter - Viji Soto RN - 12/21/2024 4:53 PM EST Tacro goal 6-9, level 11.8. Pt stated he did not take med prior to lab draw. Pt to decrease dose from 8mg daily to 7mg and will rpt level next week. documented in this encounter Plan of Treatment Upcoming Encounters Date Type Department Care Team (Late st Contact Info) Description 01/21/2025 9:30 AM EST Office Visit [facility] [place] [address] [place] [phone] John Dodd MD [address] [place] [address] Scheduled Orders Name Type Priority Associated Diagnoses Orde r Schedule Tacrolimus level Lab Routine Stage 3b chronic kidney disease (HCC) History of immunosuppressive therapy History of renal transplant Expected: 12/21/2024, Expires: 01/21/2026 documented as of this encounter Visit Diagnoses Diagnosis Stage 3b chronic kidney disease (HCC)- Primary History of immunosuppressive therapy History of renal transplant documented in this encounter Care Teams Sink Cutter Relationship Specialty Start Date End Date Carla Burns MD [address] [place], [place] PCP - General Internal Medicine 10/29/21 documented as of this encounter
--- OUTSIDE RECORDS SUMMARY | 2024-12-28 08:51 | XMS_ITS | Encounter Summary ---
Author Organization [facility] Address [address] [place] [address] Phone Care Team Providers Care Accounts Payable Lead Name Role Phone Carla Burns MD Primary Care Provider [phone] Reason for Visit * Reason Comments Med Refill Encounter Details Date Type Department Care Team (Late Contact Info) Description 01/09/2023 [facility]ill [facility] [address] [place] [address] Virgie Grajeda PA [address] [place] [address] [place] [address] Social History Tobacco Use Types [...] [facility] Visit [facility] [address] [place] [address] John Dodd MD [address] [place] [address] [place] [address] documented as of this encounter Visit Diagnoses Not on filedocumented in this encounter Care Teams Accounts Payable Lead Relationship Specialty Start Date End Date Carla Burns MD [facility] [address] [place] PCP - General Internal Medicine 10/29/21 documented as of this encounter
== END 2024-12-28 09:17 | disposition home or self-care (01) ==
PROVIDERS: PCP Internal Medicine; Visit Provider Internal Medicine
DX: E11.65 Type 2 diabetes mellitus with hyperglycemia (principal); J43.9 Emphysema, unspecified; I10 Essential (primary) hypertension; E78.5 Hyperlipidemia, unspecified; Z94.0 Kidney transplant status; Z13.9 Encounter for screening, unspecified

== ENCOUNTER → 2024-12-28 08:32 | Outpatient (BNVA) | payer MEDICARE, MEDICAID, SELFPAY | PROVIDERS: PCP Internal Medicine; Visit Provider Internal Medicine | DX: E11.65 Type 2 diabetes mellitus with hyperglycemia (principal); J43.9 Emphysema, unspecified; E78.5 Hyperlipidemia, unspecified; I10 Essential (primary) hypertension; Z94.0 Kidney transplant status | CPT/HCPCS: 83036; 96127; 99212 ==

== ENCOUNTER 2025-03-30 06:11 | Outpatient (REF) | payer MEDICARE, MEDICAID, SELFPAY ==
[2025-03-30 06:24] LABS: MANUAL DIFF FLAG NO
[2025-03-30 07:23] LABS: Basophils Percent Auto 0.5 % (0-2); Eosinophils Absolute Auto 0.2 X10*3/uL (0.0-0.4); Eosinophils Percent Auto 2.6 % (0-4); Hemoglobin 13.7 g/dl (14.0-18.0); Imm Gran Abs Auto 0.03 X10*3/uL (0.00-0.03); Imm Gran Pct Auto 0.5 % (0.0-0.4); Lymphocytes Absolute Auto 1.3 X10*3/uL (1.2-4.9); Lymphocytes Percent Auto 20.4 % (20-40); Mean Corpuscular HGB Conc 32.6 g/dl (31.0-36.0); Mean Corpuscular Hemoglobin 30.9 pg (27.0-33.0); Mean Corpuscular Volume 94.8 fL (80.0-98.0); Mean Platelet Volume 11.1 fL (9.4-12.4); Monocytes Absolute Auto 0.5 X10*3/uL (0.1-1.2); Monocytes Percent Auto 8.1 % (2-11); Neutrophils Absolute Auto 4.2 x10*3/uL (2.0-8.3); Neutrophils Percent Auto 67.9 % (45-73); Platelet Count 117 X10*3/uL (160-400); Red Blood Count 4.43 X10*6/uL (4.60-5.80); Red Cell Distribution Width 14.1 % (11.0-16.0); White Blood Count 6.1 X10*3/uL (4.8-10.8)
[2025-03-30 07:33] LABS: Estimated Average Glucose 154 mg/dL; Hemoglobin A1C 189.0334 umol/L
[2025-03-30 07:52] LABS: Alanine Aminotransferase 19 U/L (0-40); Albumin Level 3.8 g/dL (3.5-5.0); Alkaline Phosphatase 98 U/L (39-117); Anion Gap 12 (12-20); Aspartate Amino Transferase 26 U/L (5-37); Bilirubin Total 0.4 mg/dL (0.0-1.0); Blood Urea Nitrogen 43 mg/dL (9-16); Calcium 10.7 mg/dL (8.4-10.2); Carbon Dioxide 25 mmol/L (22-29); Chloride 110 mmol/L (96-108); Cholesterol 135 mg/dL (<200); Estimated Glomerular Filt Rate 40; Glucose Fasting 138 mg/dL (60-99); HDL Cholesterol 62 mg/dL (>40); LDL Cholesterol Calculated 62 mg/dL (<100); Potassium 4.3 mmol/L (3.3-5.1); Sodium 143 mmol/L (135-145); Total Protein 6.8 g/dL (6.5-8.0); Triglycerides 59 mg/dL (<150)
[2025-03-30 08:20] LABS: Folate 7.9 ng/mL (> or = 4.0); Vitamin B12 301 pg/mL (200-900)
[2025-03-30 08:30] LABS: Thyroid Stimulating Hormone 1.74 uIU/mL (0.32-4.0)
[2025-03-30 08:37] LABS: Creatinine Urine 50.79 mg/dL
[2025-03-30 08:52] LABS: Microalbum/Creatinine Ratio Ur 1675.5 ug/mg cr (<30)
== END 2025-03-30 06:12 | disposition home or self-care (01) ==
LOC: HO.LAB 06:11
PROVIDERS: Internal Medicine; PCP Internal Medicine; Visit Provider Internal Medicine
DX: E11.65 Type 2 diabetes mellitus with hyperglycemia (principal); E78.5 Hyperlipidemia, unspecified; Z12.5 Encounter for screening for malignant neoplasm of prostate
CPT/HCPCS: 36415; 80053; 80061; 82043; 82570; 82607; 82746; 83036; 84153; 84439; 84443; 85025

== ENCOUNTER 2025-04-01 09:10 | Outpatient (AMB) | payer MEDICARE, MEDICAID, SELFPAY ==
--- NOTE | 2025-04-01 09:17 | MHC.PC.OV ---
Vital Signs 04/01/25 09:18 Height 6 ft 2 in Weight 147 lb BMI 18.9 BP 122/62 Blood Pressure Location Rt brachial Position Sitting Pulse 69 Pulse Source Pulse Oximeter Temp 97.8 F Temp Source Temporal Artery Scan Pulse Oximetry (%) 98 Oxygen Delivery Method Room Air Intake Visit Reasons: DM Intake Note: Patient is here to follow up on DM. Care Center Manager Required: No Bumper And Painter: Not Required per policy Accompanied by: Self / Same As Patient Allergies No Known Allergies Allergy (Verified 04/01/25 09:17) Tobacco use date assessed: 04/01/25 Fall risk assessment: No Falls in past year Last assessed Fall Risk: 04/01/25 Dental Screening Dental Screen Date: 12/28/24 [facility] Medical History Tubular adenoma of colon Diabetes type 2, uncontrolled Positive TB test Lumbar degenerative disc disease COPD (chronic obstructive pulmonary disease) Diabetic nephropathy associated with type 2 diabetes mellitus Hypercalcemia Hypertension Dyslipidemia Diabetic polyneuropathy associated with type 2 diabetes mellitus Diabetes type 2, controlled Surgical History Hx of colonoscopy Hx of kidney transplant Hx of umbilical hernia repair Family History Father Type 2 diabetes mellitus Kidney disease Mother Polycystic kidney disease Son No problems noted. Daughter No problems noted. Brother No problems noted. Brother No problems noted. Brother No problems noted. Brother Pancreatic cancer Brother No problems noted. Social History Household Members: Significant Other Housing: Apartment Alcohol intake: former Patient Tobacco Use Status: Former Tobacco user Tobacco use type: Cigarette Cigarettes Per Day: 1 e-Cigarette/Vaping Use: Never Used Second Hand Smoke Exposure: Yes Substance Use Type: Marijuana service: No Current occupational status: employed Cognitive needs: No Hearing needs: No Vision needs: No Questionnaire Thrive Questionnaire Date Thrive assessed: 12/28/24 JACOBY-7 AMB Questionnaire JACOBY-7 Date JACOBY - 7 assessed: 12/28/24 Source: Developed by Drs. Mikhail Estes, Tina Lemos, Alec Pascual and colleagues, with an educational nallely from [employer]. Physical exam (Primary Care) Vital Signs: Last Vital Signs Temp 97.8 F 04/01/25 09:18 Pulse 69 04/01/25 09:18 BP 122/62 04/01/25 09:18 Pulse Ox 98 04/01/25 09:18 Oxygen Delivery Method Room Air 04/01/25 09:18 BMI result Body Mass Index 18.9 Tobacco/Smoking Status: Tobacco use Status Tobacco use date assessed 04/01/25 04/01/25 09:22 Patient Tobacco Use Status Former Tobacco user 04/01/25 09:17 Tobacco use type Cigarette 04/01/25 09:17 e-Cigarette/Vaping Use Never Used 04/01/25 09:17 Thrive Assessment: Date of Thrive Assessment Date Thrive assessed 12/28/24 04/01/25 09:17 Const General: alert; No acute distress Eyes Conjunctivae: conjunctivae normal Resp Auscultation: clear to auscultation bilaterally Cardio Rate: regular rate Rhythm: regular rhythm GI Inspection: Yes normal to inspection Extrem General: Yes normal to inspection and No edema Coding Level of Care Code Est Pt Level 4 (02247) Complex EM visit Add On G2211 Diagnoses Type 2 diabetes mellitus with hyperglycemia, without long-term current use of insulin E11.65 Diabetes mellitus [facility] insulin use: without [facility] use Dyslipidemia E78.5 Essential hypertension I10 Hypertension type: essential hypertension Hx of kidney transplant Z94.0 Stage 3a chronic kidney disease N18.31 Chronic kidney disease stage 3 subtype: stage 3a (GFR 45-59) Anemia D64.9 Hypercalcemia E83.52 Assessment & Plan Assessment & Plan (1) Type 2 diabetes mellitus with hyperglycemia: Comment: Dr. Diego Code(s): E11.65 - Type 2 diabetes mellitus with hyperglycemia Category: Medical Qualifiers: Diabetes mellitus terminal operator insulin use: without [facility] use Qualified Code(s): E11.65 - Type 2 diabetes mellitus with hyperglycemia Plan: Decrease the amount of carbohydrate intake, pasta, bread, rice and potatoes are all sugar and that is aside from all the sweet stuff, remember that fruits are good but they are Sweet also. Hemoglobin A1c goal of less than 6.5. Patient on repaglinide, Tradjenta and Jardiance. (2) Dyslipidemia: Code(s): E78.5 - Hyperlipidemia, unspecified Category: Medical Plan: Avoid fried foods, chicken skin, eggs, butter margarine, pastries and meat. Be it pork or beef they have a lot of cholesterol LDL goal of less than 100 and triglyceride of less than 150 on simvastatin 20 (3) Hypertension: Code(s): I10 - Essential (primary) hypertension Category: Medical Qualifiers: Hypertension type: essential hypertension Qualified Code(s): I10 - Essential (primary) hypertension Plan: Continue with blood pressure medication. Decrease salt intake and exercise patient takes lisinopril 30 mg once a day (4) Hx of kidney transplant: Comment: Polycystic kidney disease, December 2013 renal transplant [facility] Code(s): Z94.0 - Kidney transplant status Category: Surgical Plan: Continue to follow-up with Nephrology noted increase in creatinine. (5) CKD (chronic kidney disease) stage 3, GFR 30-59 ml/min: Code(s): N18.30 - Chronic kidney disease, stage 3 unspecified Category: Medical Qualifiers: Chronic kidney disease stage 3 subtype: stage 3a (GFR 45-59) Qualified Code(s): N18.31 - Chronic kidney disease, stage 3a Plan: Continue to follow-up with Nephrology on tacrolimus (6) Anemia: Code(s): D64.9 - Anemia, unspecified Category: Medical Plan: Will monitor for the moment (7) Hypercalcemia: Code(s): E83.52 - Hypercalcemia Category: Medical Plan: Will repeat the test. Plan History of Present Illness The patient is a 54-year-old male presenting with chronic condition management, including diabetes mellitus, essential hypertension, and hypercholesterolemia. His diabetes management plan aims for an A1c goal of less than 6.5, and his latest result has improved from 7.6% to 7.0%. He has been experiencing issues with obtaining Trajenta due to insurance, impacting glycemic control mildly. The patient is also managed for essential hypertension with lisinopril and hypercholesterolemia with simvastatin, with current LDL levels controlled at 62. He has a history of renal transplant due to polycystic kidney disease with an increased serum creatinine level from 1.49 to 1.74, prompting close follow-up. Mild anemia and chronic thrombocytopenia are present, with blood work showing a hemoglobin of 13.7 and platelet count of 117, respectively. Discussion includes prevention of dehydration to halt further renal function decline. The patient consents to continue monitoring calcium levels. Routine health maintenance, such as vaccination and eye examinations, are up to date as planned. Health Maintenance - Vaccination: Pneumonia vaccination is current - Screening/Procedures: Up to date with colonoscopy; eye exam scheduled for May - Lab Monitoring: Regular monitoring of blood sugar levels; renal function tests and blood counts scheduled for follow-up Social History - Employment and Lifestyle: The patient owns a [employer] smartphone and is accustomed to using a patient portal for communication. - Fluid Intake: Noted inadequate water intake, with encouragement to increase hydration - Social Influences: Impact of medication coverage issues with insurance noted Review of Systems - Hematologic: Denies any acute changes in anemia symptoms - Renal: Denies any urinary symptoms; reports stable bowel movements and urination - Endocrine: Reports blood sugar control not meeting strict goals; issues with medication procurement reported - Cardiovascular: Denies any chest pain or new symptoms related to hypertension - Respiratory: Denies any increase in respiratory symptoms from COPD - General: Denies symptoms of dehydration Physical Exam Results - Labs: Hemoglobin A1c at 7.0, hemoglobin at 13.7, platelets at 117, serum creatinine at 1.74, calcium elevated, LDL 62 Plan 1. 5, though insurance complications with Trajenta highlight the importance of maintaining continuous medication access. Glycemic improvement is verified by an A1c reduction to 7.0. Simvastatin efficiently controls hypercholesterolemia with an LDL of 62. The patient is advised to maintain adequate hydration to support renal function following the identified rise in creatinine. His current regimen includes lisinopril for hypertension and requires routine follow-up. Mild anemia and stable thrombocytopenia are noted, with continued monitoring planned. Elevated calcium levels are advised against calcium intake until further testing. Health maintenance interventions such as pneumonia vaccination, colonoscopy screening, and pending May ceramics test engineer appointments are highlighted. Health guidance encompasses the instruction for enhancing water intake and ensuring active communication via the patient portal.: Patient was informed and verbally consented to the use of an ambient scribe for clinic note documentation during this visit. Discussion Notes I discussed the patient's complex chronic conditions, focusing on maintaining diabetes control, lipid management, and kidney function maintenance. For diabetes, we discussed barriers in medication access with Trajenta and strategies to use available medications effectively until insurance resolution. Opportunities for renal function optimization were emphasized, notably adequate hydration and monitoring elevated creatinine. The beneficial effects of his antihypertensive and lipid-lowering therapies were reviewed, and current LDL cholesterol management strategy reconfirmed. I addressed minor risks related to his mild anemia and highlighted the stability of his platelet count. Continued vigilant monitoring of electrolyte levels was advised, focusing on the elevated calcium levels necessitating dietary adjustments. Follow-up visits are crucial to ensure continuity, and a special focus on communication via the patient portal was reiterated for immediate concerns. Patient Instructions - Continue taking prescribed medications as directed: lisinopril, simvastatin, Jardiance, and repaglinide. - Increase water intake to help support kidney health. - Avoid consuming foods high in calcium to prevent further elevation. - Monitor blood sugar levels regularly to check control. - Use the patient portal for medication issues or questions. - Follow-up with nephrology as planned and attend all specialist appointments. - Expect follow-up testing for blood work in three months to assess sugars, calcium levels, kidney function, and blood count. - Attend scheduled eye doctor appointment in May. - Stay updated with all vaccinations as discussed. Orders: Orders Ferritin 3 Months D64.9 - Anemia, unspecified Reticulocyte Count 3 Months D64.9 - Anemia, unspecified IRON PROFILE 3 Months D64.9 - Anemia, unspecified Comprehensive Met. Panel Today N18.31 - Chronic kidney disease, stage 3a Complete Blood Count Auto Diff 3 Months D64.9 - Anemia, unspecified Vitamin B12 and Folate 3 Months D64.9 - Anemia, unspecified Hemoglobin A1c 3 Months E83.52 - Hypercalcemia Medications: Refilled Tradjenta (linagliptin) 5 mg PO DAILY 90 tabs 1RF 90 days NS E11.65 - Type 2 diabetes mellitus with hyperglycemia
[2025-04-01 09:18] VITALS: BP 122/62; PULSE 69; TEMP 36.6; O2SAT 98; BMI 18.9
--- OUTSIDE RECORDS SUMMARY | 2025-04-01 09:46 | XMS_ITS | Encounter Summary ---
Author Organization [facility], Address [address] [place] [address] Phone Care Team Providers Care Nephrologist Name Role Phone Carla Burns MD Primary Care Provider [phone] Reason for Visit * Reason Comments Med Refill Encounter Details Date Type Department Care Team (Late Contact Info) Description 07/15/2023 Refill [facility] [address] [place] [address] Virgie Grajeda PA Social History Tobacco Use Types Packs/Day Years [...] Upcoming Encounters Date Type Department Care Team ([facility] Contact Info) Description 06/10/2025 9:45 AM EDT Office Visit [facility] [address] [place] [address] John Dodd MD [address] [place] [address] [place] [address] documented as of this encounter Visit Diagnoses Not on filedocumented in this encounter Care Teams Nephrologist Relationship Specialty Start Date End Date Carla Burns MD [facility] [address] [place] PCP - General Internal Medicine 10/29/21 documented as of this encounter
--- OUTSIDE RECORDS SUMMARY | 2025-04-01 09:46 | XMS_ITS | Encounter Summary ---
Author Organization [facility], Address [address] [place] [address] Phone Care Team Providers Care Corporate Administrative Assistant Name Role Phone Carla Burns MD Primary Care Provider [phone] Reason for Visit * Reason Comments Med Refill Encounter Details Date Type Department Care Team (Late Contact Info) Description 01/09/2023 Refill [facility] [address] [place] [address] Virgie Grajeda PA Social History [...] Encounters Date Type Department Care Team (Late Contact Info) Description 06/10/2025 9:45 AM EDT Office Visit [facility] [address] [place] [address] John Dodd MD [address] [place] [address] [place] [address] documented as of this encounter Visit Diagnoses Not on filedocumented in this encounter Care Teams Corporate Administrative Assistant Relationship Specialty Start Date End Date Carla Burns MD [facility] [address] [place] PCP - General Internal Medicine 10/29/21 documented as of this encounter
--- OUTSIDE RECORDS SUMMARY | 2025-04-01 09:47 | XMS_ITS | Clinical Summary ---
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 12/31/19 23 Active Jardiance 25 MG tablet Take 25 mg by mouth 1 (one) time each day 03/02/20 24 Active simvastatin (ZOCOR) 20 MG tablet Take 1 tablet (20 mg total) by mouth 1 (one) time each day 90 tablet 4 03/22/20 24 Active gabapentin (NEURONTIN) 100 MG capsule Take by mouth 1 (one) time each day 04/01/20 24 Active repaglinide (PRANDIN) 0.5 MG tablet Take 0.5 mg by mouth in the morning and 0.5 mg at noon and 0.5 mg in the evening. Take before meals. Active magnesium oxide 400 (240 Mg) MG tablet TAKE 1 TABLET BY MOUTH EVERY DAY IN THE MORNING 90 tablet 3 09/17/20 24 Active Tacrolimus ER (Envarsus XR) 4 MG tablet sustained-rele ase 24 hour Take 8 mg by mouth 1 (one) time each day Take with an additional 1- 0.75 mg tab for a total dose of 8.75 mg daily 60 tablet 11 02/17/20 25 026 Active Tacrolimus ER (Envarsus XR) 0.75 MG tablet sustained-rele ase 24 hour Take 0.75 mg by mouth 1 (one) time each day Take with an additional 2- 4mg tabs for a total dose of 8.75 mg daily 30 tablet 11 02/17/20 25 026 Active Tradjenta 5 MG tablet Take 10 mg by mouth 1 (one) time each day 90 tablet 3 04/09/20 24 025 Discontinued Active Problems Problem Noted Date Diagnosed Date [...] Encounters Date Type Department Care Team Description 03/28/2025 Telephone [facility] [address] [place] [address] Jesica Lemus MA 03/25/2025 10:15 AM EDT Office Visit [facility] [address] [place] [address] John Dodd MD History of renal transplant (Primary Dx); Chronic kidney disease stage 3A (HCC); History of immunosuppressive therapy; Hypertension; Type 2 diabetes mellitus with diabetic chronic kidney disease (HCC); Autosomal dominant polycystic kidney disease; Persistent proteinuria 03/25/2025 Office Communication [facility] [address] [place] [phone] Cassia Key 03/18/2025 Telephone [facility] [address] [place] [phone] Viji Soto RN envarsus dose change 03/16/2025 Orders Only [facility] [address] [place] [address] Jesica Lemus MA History of renal transplant (Primary Dx); Chronic kidney disease stage 3A (HCC); History of immunosuppressive therapy; Type 2 diabetes mellitus with diabetic chronic kidney disease (HCC); Persistent proteinuria; Hyperlipidemia, not otherwise specified; Hypomagnesemia; Other iron deficiency anemia; Other specified hypoparathyroidism (HCC); Albuminuria, not otherwise specified 02/07/2025 Telephone [facility] [address] [place] [address] Viji Soto RN envarsus dose change 01/21/2025 9:30 AM EST Office Visit [facility] [address] [place] [address] John Dodd MD History of immunosuppressive therapy (Primary Dx); History of renal transplant; Stage 3b chronic kidney disease (HCC); Type 2 diabetes mellitus with diabetic chronic kidney disease (HCC); Hypertension; Persistent proteinuria from Last 3 Months Immunizations Immunization Administration Dates Next Due Influenza, Quadrivalent, Preservative [...] Sign Reading Time Taken Comments Blood Pressure 120/58 03/25/2025 10:25 AM EDT Pulse 77 10/26/2019 12:00 PM EST Temperature - - Respiratory Rate 16 10/26/2019 12:00 PM EST Oxygen Saturation - - Inhaled Oxygen Concentration - - Weight 67.1 kg (148 lb) 03/25/2025 10:25 AM EDT Height 188 cm (6' 2 ) 10/15/2024 8:49 AM EST Body Mass Index 19 10/15/2024 8:49 AM EST Plan of Treatment Upcoming Encounters Date Type Department Care Team (Late st Contact Info) Description 06/10/2025 9:45 AM EDT Office Visit [facility] [address] [place] [address] John Dodd MD [address] [place] [address] [place] [phone] Health Maintenance Due Date Last Done Comments Pneumococcal Vaccine: 50+ Years (3 of 3 - PPSV23, PCV20 or PCV21) 12/01/2018 09/01/2017, 12/01/2013 Diabetes: Ophthalmology Exam 01/04/2020 Diabetes: Pedal Pulse Checked 01/04/2020 Diabetes: Sensory Foot Exam 01/04/2020 Diabetes: Visual Foot Exam 01/04/2020 Colonoscopy (Post-Transplant Patient) 07/12/2020 Diabetes: Hemoglobin A1C 09/08/2024 07 024, 02/12/2024, 05/20/2023, Additional history exists Influenza Vaccine (Season Ended) 2025 08/21/2020, 09/22/2014 Pneumococcal Vaccine: Peds (0 to 5 Years) and At-Risk Patients (6 to 49 Years) Discontinued 09/01/2017, 12/01/2013 Hepatitis B Vaccine Aged Out No longe r eligible based on patient's age to complete this topic Procedures Procedure Name Priority Date/Time Associated Diagnosis Comments URINALYSIS, COMPLETE Routine 03/29/2025 7:54 AM EDT History of renal transplant Chronic kidney disease stage 3A (HCC) History of immunosuppressive therapy Type 2 diabetes mellitus with diabetic chronic kidney disease (HCC) Persistent proteinuria Hyperlipidemia, not otherwise specified Hypomagnesemia Other iron deficiency anemia Other specified hypoparathyroidism (HCC) Albuminuria, not otherwise specified URINE ALBUMIN / CREATININE RATIO Routine 03/29/2025 7:54 AM EDT History of renal transplant Chronic kidney disease stage 3A (HCC) History of immunosuppressive therapy Type 2 diabetes mellitus with diabetic chronic kidney disease (HCC) Persistent proteinuria Hyperlipidemia, not otherwise specified Hypomagnesemia Other iron deficiency anemia Other specified hypoparathyroidism (HCC) Albuminuria, not otherwise specified PTH, INTACT Routine 03/29/2025 7:54 AM EDT History of renal transplant Chronic kidney disease stage 3A (HCC) History of immunosuppressive therapy Type 2 diabetes mellitus with diabetic chronic kidney disease (HCC) Persistent proteinuria Hyperlipidemia, not otherwise specified Hypomagnesemia Other iron deficiency anemia Other specified hypoparathyroidism (HCC) Albuminuria, not otherwise specified IRON PANEL (FE, TIBC, TSAT) Routine 03/29/2025 7:54 AM EDT History of renal transplant Chronic kidney disease stage 3A (HCC) History of immunosuppressive therapy Type 2 diabetes mellitus with diabetic chronic kidney disease (HCC) Persistent proteinuria Hyperlipidemia, not otherwise specified Hypomagnesemia Other iron deficiency anemia Other specified hypoparathyroidism (HCC) Albuminuria, not otherwise specified FERRITIN Routine 03/29/2025 7:54 AM EDT History of renal transplant Chronic kidney disease stage 3A (HCC) History of immunosuppressive therapy Type 2 diabetes mellitus with diabetic chronic kidney disease (HCC) Persistent proteinuria Hyperlipidemia, not otherwise specified Hypomagnesemia Other iron deficiency anemia Other specified hypoparathyroidism (HCC) Albuminuria, not otherwise specified CREATINE KINASE Routine 03/29/2025 7:54 AM EDT History of renal transplant Chronic kidney disease stage 3A (HCC) History of immunosuppressive therapy Type 2 diabetes mellitus with diabetic chronic kidney disease (HCC) Persistent proteinuria Hyperlipidemia, not otherwise specified Hypomagnesemia Other iron deficiency anemia Other specified hypoparathyroidism (HCC) Albuminuria, not otherwise specified ALT Routine 03/29/2025 7:54 AM EDT History of renal transplant Chronic kidney disease stage 3A (HCC) History of immunosuppressive therapy Type 2 diabetes mellitus with diabetic chronic kidney disease (HCC) Persistent proteinuria Hyperlipidemia, not otherwise specified Hypomagnesemia Other iron deficiency anemia Other specified hypoparathyroidism (HCC) Albuminuria, not otherwise specified AST Routine 03/29/2025 7:54 AM EDT History of renal transplant Chronic kidney disease stage 3A (HCC) History of immunosuppressive therapy Type 2 diabetes mellitus with diabetic chronic kidney disease (HCC) Persistent proteinuria Hyperlipidemia, not otherwise specified Hypomagnesemia Other iron deficiency anemia Other specified hypoparathyroidism (HCC) Albuminuria, not otherwise specified MAGNESIUM Routine 03/29/2025 7:54 AM EDT History of renal transplant Chronic kidney disease stage 3A (HCC) History of immunosuppressive therapy Type 2 diabetes mellitus with diabetic chronic kidney disease (HCC) Persistent proteinuria Hyperlipidemia, not otherwise specified Hypomagnesemia Other iron deficiency anemia Other specified hypoparathyroidism (HCC) Albuminuria, not otherwise specified CBC AND DIFFERENTIAL Routine 03/29/2025 7:54 AM EDT History of renal transplant Chronic kidney disease stage 3A (HCC) History of immunosuppressive therapy Type 2 diabetes mellitus with diabetic chronic kidney disease (HCC) Persistent proteinuria Hyperlipidemia, not otherwise specified Hypomagnesemia Other iron deficiency anemia Other specified hypoparathyroidism (HCC) Albuminuria, not otherwise specified RENAL FUNCTION PANEL Routine 03/29/2025 7:54 AM EDT History of renal transplant Chronic kidney disease stage 3A (HCC) History of immunosuppressive therapy Type 2 diabetes mellitus with diabetic chronic kidney disease (HCC) Persistent proteinuria Hyperlipidemia, not otherwise specified Hypomagnesemia Other iron deficiency anemia Other specified hypoparathyroidism (HCC) Albuminuria, not otherwise specified TACROLIMUS, HIGHLY SENSITIVE, LC/MS/MS Routine 03/29/2025 7:54 AM EDT History of renal transplant Chronic kidney disease stage 3A (HCC) History of immunosuppressive therapy Type 2 diabetes mellitus with diabetic chronic kidney disease (HCC) Persistent proteinuria Hyperlipidemia, not otherwise specified Hypomagnesemia Other iron deficiency anemia Other specified hypoparathyroidism (HCC) Albuminuria, not otherwise specified MICROSCOPIC EXAMINATION - DO NOT USE Routine 03/29/2025 7:54 AM EDT TACROLIMUS, HIGHLY SENSITIVE, LC/MS/MS Routine 03/15/2025 7:49 AM EDT History of renal transplant Chronic kidney disease stage 3A (HCC) History of immunosuppressive therapy CREATINE KINASE Routine 01/27/2025 8:32 AM EST History of immunosuppressive therapy History of renal transplant Stage 3b chronic kidney disease (HCC) Type 2 diabetes mellitus with diabetic chronic kidney disease (HCC) Hyperlipidemia, not otherwise specified Hypomagnesemia Proteinuria, not otherwise specified ALT Routine 01/27/2025 8:32 AM EST History of immunosuppressive therapy History of renal transplant Stage 3b chronic kidney disease (HCC) Type 2 diabetes mellitus with diabetic chronic kidney disease (HCC) Hyperlipidemia, not otherwise specified Hypomagnesemia Proteinuria, not otherwise specified AST Routine 01/27/2025 8:32 AM EST History of immunosuppressive therapy History of renal transplant Stage 3b chronic kidney disease (HCC) Type 2 diabetes mellitus with diabetic chronic kidney disease (HCC) Hyperlipidemia, not otherwise specified Hypomagnesemia Proteinuria, not otherwise specified MAGNESIUM Routine 01/27/2025 8:32 AM EST History of immunosuppressive therapy History of renal transplant Stage 3b chronic kidney disease (HCC) Type 2 diabetes mellitus with diabetic chronic kidney disease (HCC) Hyperlipidemia, not otherwise specified Hypomagnesemia Proteinuria, not otherwise specified TACROLIMUS LEVEL Routine 01/27/2025 8:32 AM EST History of immunosuppressive therapy History of renal transplant Stage 3b chronic kidney disease (HCC) Type 2 diabetes mellitus with diabetic chronic kidney disease (HCC) Hyperlipidemia, not otherwise specified Hypomagnesemia Proteinuria, not otherwise specified PROTEIN / CREATININE RATIO, URINE Routine 01/27/2025 8:32 AM EST History of immunosuppressive therapy History of renal transplant Stage 3b chronic kidney disease (HCC) Type 2 diabetes mellitus with diabetic chronic kidney disease (HCC) Hyperlipidemia, not otherwise specified Hypomagnesemia Proteinuria, not otherwise specified URINALYSIS, COMPLETE Routine 01/27/2025 8:32 AM EST History of immunosuppressive therapy History of renal transplant Stage 3b chronic kidney disease (HCC) Type 2 diabetes mellitus with diabetic chronic kidney disease (HCC) Hyperlipidemia, not otherwise specified Hypomagnesemia Proteinuria, not otherwise specified RENAL FUNCTION PANEL Routine 01/27/2025 8:32 AM EST History of immunosuppressive therapy History of renal transplant Stage 3b chronic kidney disease (HCC) Type 2 diabetes mellitus with diabetic chronic kidney disease (HCC) Hyperlipidemia, not otherwise specified Hypomagnesemia Proteinuria, not otherwise specified CBC AND DIFFERENTIAL Routine 01/27/2025 8:32 AM EST History of immunosuppressive therapy History of renal transplant Stage 3b chronic kidney disease (HCC) Type 2 diabetes mellitus with diabetic chronic kidney disease (HCC) Hyperlipidemia, not otherwise specified Hypomagnesemia Proteinuria, not otherwise specified MICROSCOPIC EXAMINATION - DO NOT USE Routine 01/27/2025 8:32 AM EST HEMOGLOBIN A1C Routine 06/08/2024 7:37 AM EDT History of renal transplant History of immunosuppressive therapy Chronic kidney disease stage 3A (HCC) Hyperlipidemia, not otherwise specified Type 2 diabetes mellitus without complication (HCC) Vitamin D deficiency, not otherwise specified Other iron deficiency anemia from Last 3 Months or Most Recently Relevant to Health Maintenance Results * (ABNORMAL) Tacrolimus, Highly Sensitive, LC/MS/MS (03/29/2025 7:54 AM EDT) Only the most recent of2 resultswithin the time period is included. [facility] Tacrolimus by Immunoassay 3.4(L) 5.0 - 20.0 ng/mL [facility] Comment: Detection Limit = 0.8 ng/mL Target steady state trough concentration for Tacrolimus varies based on type of organ transplant immunosuppressive protocol and other patient specific factors. ??Tacrolimus trough concentrations should be interpreted in conjunction with clinical assessments of rejection and tolerability. ??Values obtained with different assay methods cannot be used interchangeably due to differences in assay methods and cross-reactivity with metabolites, nor should correction factors be applied. ??Therefore, consistent use of one assay for individual patients is recommended. Tacrolimus assay performed by [employer]. ? Please note reference interval change [facility] will offer rebaseline testing (Test No. [id number]) through March 30, 2025. ??The rebaseline test will include results from both the current method ([employer]) and the new method ([employer]). ??All test results indicate the veneer sheet repairer of the test on the laboratory report. ??The rebaseline test for tacrolimus immunoassay is charged at the thakkar for the new test; the test for the retiring method is performed at no additional charge. 03/29/2025 7:54 AM EDT 03/29/2025 us John Dodd MD LAB BLOOD ORDERABLES Final Result [facility] [address] [place] [address] * (ABNORMAL) Urinalysis, Complete w/reflex to Culture (03/29/2025 7:54 AM EDT) Only the most recent of2 resultswithin the time period is included. Specific [place], Urine 1.025 1.005 - 1.030 [facility] pH Urine 5.5 5.0 - 7.5 [facility] Color, Urine Yellow Yellow [facility] [phone] Appearance Urine Clear Clear [facility] WBC Esterase Urine Negative Negative [facility] [phone] Protein, Ur 3+(A) Negative/Tra ce [facility] Glucose, Ur 3+(A) Negative [facility] [phone] Ketones, Urine Negative Negative [facility] Blood Urine 1+(A) Negative [facility] [phone] Bilirubin Urine Negative Negative [facility] Urobilinogen Urine 0.2 0.2 - 1.0 mg/dL [facility] Nitrite, Urine Negative Negative [facility] Microscopic Examination See below: [facility] Comment:Microscopic was su cated and was performed. URINALYSIS REFLEX Comment [facility] Comment:This specimen will n ot reflex to a Urine Culture. Urine (Urine, Clean Catch) 03/29/2025 7:54 AM EDT 03/29/2025 John Dodd MD LAB URINE ORDERABLES Final Result Performing Organization Address City/[facility]/ZIP Co de Phone Number [facility] [address] [place] [address] * Microscopic Examination (03/29/2025 7:54 AM EDT) Only the most recent of2 resultswithin the time period is included. WBC, Urine None seen 0 - 5 /hpf [facility] RBC, Urine None seen 0 - 2 /hpf [facility] Squamous Epithelial, Urine None seen 0 - 10 /hpf [facility] Casts None seen None seen /lpf [facility] Bacteria, Urine None seen None seen/Few [facility] 03/29/2025 7:54 AM EDT 03/29/2025 John Dodd MD LAB MICROBIOLOGY - GENERAL ORDERABLES Final Result [facility] [address] [place] [address] * (ABNORMAL) Iron Panel (Fe, TIBC, TSAT) (03/29/2025 7:54 AM EDT) TIBC 249(L) 250 - 450 ug/dL [facility] UIBC 193 111 - 343 ug/dL [facility] Iron 56 38 - 169 ug/dL [facility] Iron Saturation (TSat) 22 15 - 55 % [facility] Blood (Blood, Venous) 03/29/2025 7:54 AM EDT 03/29/2025 us John Dodd MD LAB BLOOD ORDERABLES Final Result Performing Organization Address [facility] Co de Phone Number [facility] [address] [place] [address] * (ABNORMAL) Urine Albumin / Creatinine Ratio (03/29/2025 7:54 AM EDT) Creatinine, Ur 86.7 Not Estab. mg/dL [facility] Albumin, Urine 1,022.6 Not Estab. ug/mL [facility] Comment: Results confirmed on dilution. Albumin/Creatin ine Ratio 1,179(H) 0 - 29 mg/g creat [facility] Comment: ? Normal: ?0 - ??29 ? Moderately increased: 30 - 300 ? Severely increased: ? >300 Urine (Urine, Clean Catch) 03/29/2025 7:54 AM EDT 03/29/2025 John Dodd MD LAB URINE ORDERABLES Final Result Performing Organization Address [facility]/ZIP Co de Phone Number [facility] [address] [place] [address] * (ABNORMAL) CBC and Differential (03/29/2025 7:54 AM EDT) Only the most recent of2 resultswithin the time period is included. [facility] WBC 7.0 3.4 - 10.8 x10E3/uL [facility] RBC 4.32 4.14 - 5.80 x10E6/uL [facility] Hemoglobin 13.7 13.0 - 17.7 g/dL [facility] Hematocrit 41.1 37.5 - 51.0 % [facility] MCV 95 79 - 97 fL [facility] MCH 31.7 26.6 - 33.0 pg [facility] MCHC 33.3 31.5 - 35.7 g/dL [facility] RDW 13.0 11.6 - 15.4 % [facility] Platelets 123(L) 150 - 450 x10E3/uL [facility] Neutrophils Relative 75 Not Estab. % [facility] Lymphocytes Relative 14 Not Estab. % [facility] Monocytes 9 Not Estab. % [facility] Eosinophils Relative 1 Not Estab. % [facility] Basophils Relative 0 Not Estab. % [facility] Neutrophils Absolute 5.2 1.4 - 7.0 x10E3/uL [facility] Lymphocytes Absolute 1.0 0.7 - 3.1 x10E3/uL [facility] Monocytes Absolute 0.6 0.1 - 0.9 x10E3/uL [facility] Eosinophils Absolute 0.1 0.0 - 0.4 x10E3/uL [facility] Basophils Absolute 0.0 0.0 - 0.2 x10E3/uL [facility] Immature Granulocytes 1 Not Estab. % [facility] Immature Grans (Absolute) 0.0 0.0 - 0.1 x10E3/uL [facility] Blood (Blood, Venous) 03/29/2025 7:54 AM EDT 03/29/2025 Result [facility] John Dodd MD LAB BLOOD ORDERABLES Final Result Performing Organization Address [facility] de Phone Number [facility] [address] [place] [address] * ALT (03/29/2025 7:54 AM EDT) Only the most recent of2 resultswithin the time period is included. ALT (SGPT) 18 0 - 44 IU/L [facility] Blood (Blood, Venous) 03/29/2025 7:54 AM EDT 03/29/2025 Result [facility] John Dodd MD LAB BLOOD ORDERABLES Final Result Performing Organization Address [facility] de Phone Number [facility] [address] [place] [address] * AST (03/29/2025 7:54 AM EDT) Only the most recent of2 resultswithin the time period is included. AST (SGOT) 20 0 - 40 IU/L [facility] Blood (Blood, Venous) 03/29/2025 7:54 AM EDT 03/29/2025 Result [facility] John Dodd MD LAB BLOOD ORDERABLES Final Result [facility] [address] [place] [address] * PTH, Intact (03/29/2025 7:54 AM EDT) PTH 47 15 - 65 pg/mL [facility] Blood (Blood, Venous) 03/29/2025 7:54 AM EDT 03/29/2025 John Dodd MD LAB BLOOD ORDERABLES Final Result Performing Organization Address [facility] Co de Phone Number [facility] [address] [place] [address] * Magnesium (03/29/2025 7:54 AM EDT) Only the most recent of2 resultswithin the time period is included. Magnesium 1.9 1.6 - 2.3 mg/dL [facility] Blood (Blood, Venous) 03/29/2025 7:54 AM EDT 03/29/2025 John Dodd MD LAB BLOOD ORDERABLES Final Result Performing Organization Address [facility]/ZIP Co de Phone Number [facility] [address] [place] [address] * Ferritin (03/29/2025 7:54 AM EDT) Ferritin 245 30 - 400 ng/mL [facility] Blood (Blood, Venous) 03/29/2025 7:54 AM EDT 03/29/2025 John Dodd MD LAB BLOOD ORDERABLES Final Result Performing Organization Address City/[facility]/ZIP Co de Phone Number [facility] [address] [place] [address] * CK (03/29/2025 7:54 AM EDT) Only the most recent of2 resultswithin the time period is included. Pathologist [facility] Creatine Kinase (CK/CPK) 244 41 - 331 U/L [facility] Blood (Blood, Venous) 03/29/2025 7:54 AM EDT 03/29/2025 John Dodd MD LAB BLOOD ORDERABLES Final Result [facility] [address] [place] [address] * (ABNORMAL) Renal Function Panel (03/29/2025 7:54 AM EDT) Only the most recent of2 resultswithin the time period is included. Pathologist [facility] Glucose 199(H) 70 - 99 mg/dL [facility] BUN 35(H) 8 - 27 mg/dL [facility] Creatinine 1.72(H) 0.76 - 1.27 mg/dL [facility] eGFR CKD-EPI CR 2020 44(L) >59 mL/min/1.7 3 [facility] BUN/Creatinine Ratio 20 10 - 24 [facility] Sodium 141 134 - 144 mmol/L [facility] Potassium 4.5 3.5 - 5.2 mmol/L [facility] Chloride 106 96 - 106 mmol/L [facility] Bicarbonate (CO2) 19(L) 20 - 29 mmol/L [facility] Calcium 10.3(H) 8.6 - 10.2 mg/dL [facility] Albumin 4.0 3.9 - 4.9 g/dL [facility] Phosphorus 2.7(L) 2.8 - 4.1 mg/dL [facility] Blood (Blood, Venous) 03/29/2025 7:54 AM EDT 03/29/2025 John Dodd MD LAB BLOOD ORDERABLES Final Result Performing Organization Address [facility]/ZIP Co de Phone Number [facility] [address] [place] [address] * Tacrolimus level (01/27/2025 8:32 AM EST) [facility] Tacrolimus Lvl 5.3 5.0 - 20.0 ng/mL [facility] Comment: Target steady state trough concentration for Tacrolimus varies based on type of organ transplant immunosuppressive protocol and other patient specific factors. ??Tacrolimus trough concentrations should be interpreted in conjunction with clinical assessments of rejection and tolerability. ??Values obtained with different assay methods cannot be used interchangeably due to differences in assay methods and cross-reactivty with metabolites, nor should correction factors be applied. ??Therefore, consistent use of one assay for individual patients is recommended. Detection Limit = 0.5 ng/mL Performed by LC-MS/MS technology ?Please note reference interval change Blood (Blood, Venous) 01/27/2025 8:32 AM EST 01/27/2025 Narrative [facility] - 01/29/2025 5:05 PM EST Test(s) 461100-[id number] (FK506), Blood was developed and its performance characteristics determined by [facility]. It has not been cleared or approved by the Food and Drug Administration. John Dodd MD LAB BLOOD ORDERABLES Final Result Performing Organization Address City/[facility]/ZIP Co de Phone Number [facility] [address] [place] [phone] * (ABNORMAL) Protein, Total, Random Urine w/Creatinine (Protein/Creat Ratio) (01/27/2025 8:32 AM EST) Creatinine, Ur 41.5 Not Estab. mg/dL [facility] Protein, Ur 93.3 Not Estab. mg/dL [facility] Urine Protein/Creati nine Ratio 2,248(H) 0 - 200 mg/g creat [facility] Urine (Urine, Clean Catch) 01/27/2025 8:32 AM EST 01/27/2025 John Dodd MD LAB URINE ORDERABLES Final Result Performing Organization Address [facility] Co de Phone Number [facility] [employer] [facility] [address] [place] [address] * (ABNORMAL) Hemoglobin A1c (06/08/2024 7:37 AM EDT) Hemoglobin A1C 8.1(H) 4.8 - 5.6 % [facility] Comment: ? Prediabetes: 5.7 - 6.4 ? Diabetes: >6.4 ? 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 [place], [place] PCP - General Internal Medicine 10/29/21
--- OUTSIDE RECORDS SUMMARY | 2025-04-01 09:47 | XMS_ITS | Encounter Summary ---
Author Organization [facility] Address [address] [place] [address] Phone Care Team Providers Care Char Conveyor Tender Name Role Phone Carla Burns MD Primary Care Provider [phone] Encounter Details Date Type Department Care Team (Late Contact Info) Description 03/28/2025 Telephone [facility] [address] [place] [phone] Jesica Lemus MA [address] [place] [phone] Social History Tobacco Use Types Packs/Day Years [...] encounter Miscellaneous Notes * Telephone Encounter - Jesica Lemus MA - 03/28/2025 9:54 AM EDT Spoke to pts son an dgave appt details to pts son 06/10/25@945a documented in this encounter Plan of Treatment Upcoming Encounters Date Type Department Care Team (Late Contact Info) Description 06/10/2025 9:45 AM EDT Office Visit [facility] [address] [place] [phone] Jhon Dodd MD [address] [phone] documented as of this encounter Visit Diagnoses Not on filedocumented in this encounter Care Teams Char Conveyor Tender Relationship Specialty Start Date End Date Carla Burns MD [address] [place], [place] PCP - General Internal Medicine 10/29/21 documented as of this encounter
== END 2025-04-01 09:55 | disposition home or self-care (01) ==
LOC: HO.HMCH 09:11
PROVIDERS: PCP Internal Medicine; Visit Provider Internal Medicine
DX: E11.65 Type 2 diabetes mellitus with hyperglycemia (principal); I12.9 Hypertensive chronic kidney disease with stage 1 through stage 4 chronic kidney disease, or unspecified chronic kidney disease; N18.31 Chronic kidney disease, stage 3a; E78.5 Hyperlipidemia, unspecified; Z94.0 Kidney transplant status; D64.9 Anemia, unspecified; E83.52 Hypercalcemia

== ENCOUNTER → 2025-04-01 09:10 | Outpatient (BNVA) | payer MEDICARE, MEDICAID, SELFPAY | PROVIDERS: PCP Internal Medicine; Visit Provider Internal Medicine | DX: E11.65 Type 2 diabetes mellitus with hyperglycemia (principal); E78.5 Hyperlipidemia, unspecified; I12.9 Hypertensive chronic kidney disease with stage 1 through stage 4 chronic kidney disease, or unspecified chronic kidney disease; E11.22 Type 2 diabetes mellitus with diabetic chronic kidney disease; N18.31 Chronic kidney disease, stage 3a; D64.9 Anemia, unspecified; E83.52 Hypercalcemia; Z94.0 Kidney transplant status | CPT/HCPCS: 99212 ==

== ENCOUNTER 2025-07-27 08:26 | Outpatient (AMB) | payer MEDICARE, MEDICAID, SELFPAY ==
[2025-07-27 08:35] VITALS: BP 134/68; PULSE 72; O2SAT 97; BMI 18.2
--- NOTE | 2025-07-27 08:35 | MHC.OFFVIS ---
Vital Signs 07/27/25 08:35 Height 6 ft 2 in Weight 142 lb BMI 18.2 BP 134/68 Blood Pressure Location Rt brachial Position Sitting Pulse 72 Pulse Source Pulse Oximeter Pulse Oximetry (%) 97 Oxygen Delivery Method Room Air Intake Visit Reasons: 30 m, colo screening Intake Note: Est pt for recall colo screening. Last 2023. Fair prep indicates 1 year recall. CC: Pt denies any GI sx or concerns at this time. Experimental Assembler Required: No Accompanied by: Self / Same As Patient Allergies No Known Allergies Allergy (Verified 07/29/25 08:17) HPI HPI 30 m, colo screening: Details: LAST VISIT: Status post colonoscopy Plan Suboptimal prep for colonoscopy. Currently patient does not have any GI concerning symptoms. Reports to be feeling well. Patient will return in 8 months so we can discuss going for colonoscopy. He is agreeable to this plan and verbalizes understanding of instructions. He was given the opportunity to ask questions and all questions answered. TODAY'S VISIT Patient is here today for follow-up and to discuss going for colonoscopy. Patient had suboptimal prep last visit and colonoscopy was recommended to be repeated in 1 year. Patient denies any issues with anesthesia in the past. No history of sleep apnea. Patient is not on any anticoagulation medication. Patient is diabetic and is taking Jardiance. Patient is also on lisinopril. Patient denies any dyspepsia, dysphagia or odynophagia. Denies any melena, hematochezia, unintentional weight loss or ribbon like stools. Patient denies being constipated. Will order 1 week of Dulcolax before going for procedure [facility] Medical History Tubular adenoma of colon Diabetes type 2, uncontrolled Positive TB test Lumbar degenerative disc disease COPD (chronic obstructive pulmonary disease) Diabetic nephropathy associated with type 2 diabetes mellitus Hypercalcemia Hypertension Dyslipidemia Diabetic polyneuropathy associated with type 2 diabetes mellitus Diabetes type 2, controlled Surgical History Hx of colonoscopy Hx of kidney transplant Hx of umbilical hernia repair Family History Father Type 2 diabetes mellitus Kidney disease Mother Polycystic kidney disease Son No problems noted. Daughter No problems noted. Brother No problems noted. Brother No problems noted. Brother No problems noted. Brother Pancreatic cancer Brother No problems noted. Social History Household Members: Significant Other Housing: Apartment Alcohol intake: former Patient Tobacco Use Status: Former Tobacco user Tobacco use type: Cigarette Cigarettes Per Day: 1 e-Cigarette/Vaping Use: Never Used Second Hand Smoke Exposure: Yes Substance Use Type: Marijuana service: No Current occupational status: employed Cognitive needs: No Hearing needs: No Vision needs: No Review of Systems Const Denies weight gain and Denies weight loss ENT Reports no additional complaints, Denies dysphagia and Denies odynophagia Card Reports no additional complaints Resp Reports no additional complaints GI Denies abdominal pain, Denies belching, Denies melena, Denies bloating, Denies change in bowel habits, Denies dysphagia, Denies excessive flatus, Denies dyspepsia, Denies heartburn, Denies diarrhea, Denies loose stools, Denies nausea, Denies odynophagia and Denies vomiting Reports no additional complaints Musc Reports no additional complaints Neuro Reports no additional complaints Psych Reports no additional complaints Endo Reports no additional complaints Physical Exam Vital Signs: Last Vital Signs Pulse 72 07/27/25 08:35 BP 134/68 07/27/25 08:35 Pulse Ox 97 07/27/25 08:35 Oxygen Delivery Method Room Air 07/27/25 08:35 BMI result Body Mass Index 18.2 Const General: healthy appearing, no acute distress and well developed Nutritional Appearance: well nourished Orientation/consciousness: patient oriented x3 Resp Effort & Inspection: normal respiratory effort, able to speak in complete sentences, no tracheal deviation and symmetric chest movement Auscultation: clear to auscultation bilaterally Cardio Rate: regular rate GI Inspection: Yes normal to inspection and No distended Palpation (GI): Soft to palpation, not firm, nontender and No hepatosplenomegaly present Auscultation: normal bowel sounds General: Yes no CVA tenderness Back/Spine/Pelvis Back: no CVA tenderness Skin General skin exam: elasticity normal, turgor normal and dry skin Neuro General: patient oriented x3 Psych Appearance: grossly normal Mental Status: mental status grossly normal Assessment & Plan Assessment & Plan (1) Screen for colon cancer: Code(s): Z12.11 - Encounter for screening for malignant neoplasm of colon Plan Patient will start taking Dulcolax 7 days before procedure. Day before procedure patient will follow split MiraLax prep and Dulcolax as written by instructions provided to patient. What to expect before during and after procedure discussed with him. Stressed the importance of good bowel prep and clear liquid diet day before procedure. Patient is agreeable to current plan of care and verbalizes understanding of instructions. I will see him after the procedure, sooner on as needed basis. Thank you for allowing me to participate in his care Medications: New bisacodyl (Dulcolax (bisacodyl)) Start taking 2 tablet every night 7 days before the procedure and 1 day before procedure take 4 tablets at noon time followed by MiraLax prep 10 mg (2 x 5 mg) PO BEDTIME 16 tabs 0RF Z12.11 - Encounter for screening for malignant neoplasm of colon polyethylene glycol 3350 (Miralax) As directed by gastroenterology department at [facility] 238 grams PO ONCE 238 grams 0RF Z12.11 - Encounter for screening for malignant neoplasm of colon Coding Level of Care Code Est Pt Level 3 (31790) Diagnoses Screen for colon cancer Z12.11 Time Spent (min) 30 Comment 20 minutes spent with patient and additional 10 minutes spent reviewing his records
--- OUTSIDE RECORDS SUMMARY | 2025-07-27 08:48 | XMS_ITS | Encounter Summary ---
Author Organization [facility] Address [address] [place] [address] Phone Care Team Providers Care Boring And Filling Machine Operator Name Role Phone Carla Burns MD Primary Care Provider [phone] Reason for Visit * Reason Comments Med Refill Encounter Details Date Type Department Care Team (Late st Contact Info) Description 07/15/2023 Refill [facility] [address] [place] [address] Virgie Grajeda PA [address] [place] [address] [place] [address] Social History Tobacco Use Types [...] Care Team (Late st Contact Info) Description 08/11/2025 1:45 PM EDT Clinical Support [facility] [address] [place] [address] Terese Garza FNP-C [address] [place] [address] documented as of this encounter Visit Diagnoses Not on filedocumented in this encounter Care Teams Boring And Filling Machine Operator Relationship Specialty Start Date End Date Carla Burns MD [facility] [address] [facility] [place] PCP - General Internal Medicine 10/29/21 documented as of this encounter
--- OUTSIDE RECORDS SUMMARY | 2025-07-27 08:48 | XMS_ITS | Encounter Summary ---
Author Organization [facility] Address [address] [place] [address] Phone Care Team Providers Care Vocal Performer Name Role Phone Carla Burns MD Primary Care Provider [phone] Reason for Visit * Reason Comments Med Refill Encounter Details Date Type Department Care Team (Late st Contact Info) Description 01/09/2023 Refill [facility] [address] [place] [address] Virgie Grajeda PA [address] [place] [address] [place] [address] Social History Tobacco Use Types [...] Clinical Support [facility] [address] [place] [address] Terese Garza FNP-C [address] [place] [address] documented as of this encounter Visit Diagnoses Not on filedocumented in this encounter Care Teams Vocal Performer Relationship Specialty Start Date End Date Carla Burns MD [facility] [address] [facility] [place] PCP - General Internal Medicine 10/29/21 documented as of this encounter
--- OUTSIDE RECORDS SUMMARY | 2025-07-27 08:49 | XMS_ITS | Clinical Summary ---
Author Organization [facility], Address [address] [place] [address] [place] [address] Phone Care Team Providers Care Command Center Officer Name Role Phone Carla Burns MD Primary Care Provider [phone] Allergies No known active allergies Medications Lancets [...] 1 (one) time each day 4 Active gabapentin (NEURONTIN) 100 MG capsule Take by mouth 1 (one) time each day 4 Active repaglinide (PRANDIN) 0.5 MG tablet Take 0.5 mg by mouth in the morning and 0.5 mg at noon and 0.5 mg in the evening. Take before meals. Active magnesium oxide 400 (240 Mg) MG tablet TAKE 1 TABLET BY MOUTH EVERY DAY IN THE MORNING 90 tablet 3 4 Active simvastatin (ZOCOR) 20 MG tablet Take 1 tablet (20 mg total) by mouth 1 (one) time each day 30 tablet 11 5 06/10/20 26 Active Tacrolimus ER (Envarsus XR) 1 MG tablet sustained-relea se 24 hour Take 2 mg by mouth 1 (one) time each day Take in addition to 2- 4 mg tabs for a total daily dose of 10 mg 60 tablet 11 202 5 Active Tacrolimus ER (Envarsus XR) 4 MG tablet sustained-relea se 24 hour Take 8 mg by mouth 1 (one) time each day Take in addition to 2- 1 mg tabs for a total daily dose of 10 mg 60 tablet 5 07/11/20 26 Active Tacrolimus ER (Envarsus XR) 4 MG tablet sustained-relea se 24 hour Take 8 mg by mouth 1 (one) time each day Take in addition to 2- 1 mg tabs for a total daily dose of 10 mg 60 tablet 5 07/11/20 25 Discontinu ed(Reorder (does not appear on AVS)) Tacrolimus ER (Envarsus XR) 1 MG tablet sustained-relea se 24 hour Take 2 mg by mouth 1 (one) time each day Take in addition to 2- 4 mg tabs for a total daily dose of 10 mg 60 tablet 5 07/11/20 25 Discontinu ed(Reorder (does not appear on [...] Encounters Date Type Department Care Team Description 07/11/2025 Orders Only [facility], [address] [place] [address] Jesica Lemus MA 06/10/2025 9:45 AM EDT Office Visit [facility] [address] [place] [address] John Dodd MD History of renal transplant (Primary Dx); History of immunosuppressive therapy; Type 2 diabetes mellitus with diabetic chronic kidney disease (HCC); Hypertension; Autosomal dominant polycystic kidney disease; Chronic kidney disease stage 3A (HCC) 05/31/2025 Orders Only [facility] [place] [address] [place] [address] Jesica Lemus MA Chronic kidney disease stage 3A (HCC) (Primary Dx); History of immunosuppressive therapy; History of renal transplant; Hyperlipidemia, not otherwise specified; Vitamin D deficiency, not otherwise specified; Idiopathic gout, not otherwise specified; Other hyperlipidemia; Hypomagnesemia; Other iron deficiency anemia; Other specified hypoparathyroidism (HCC); Albuminuria, not otherwise specified; Poor glycemic control from Last 3 Months Immunizations Immunization Administration [...] Sign Reading Time Taken Comments Blood Pressure 108/60 06/10/2025 9:39 AM EDT Pulse 77 10/26/2019 12:00 PM EST Temperature - - Respiratory Rate 16 10/26/2019 12:00 PM EST Oxygen Saturation - - Inhaled Oxygen Concentration - - Weight 66 kg (145 lb 9.6 oz) 06/10/2025 9:39 AM EDT Height 188 cm (6' 2 ) 10/15/2024 8:49 AM EST Body Mass Index 18.69 10/15/2024 8:49 AM EST Plan of Treatment Upcoming Encounters Date Type Department Care Team (Late st Contact Info) Description 08/11/2025 1:45 PM EDT Clinical Support [facility] [address] [place] [id number] Terese Garza, [employer] [address] [place] [phone] Health Maintenance Due Date Last Done Comments Pneumococcal Vaccine: 50+ Years (3 of 3 - PCV20 or PCV21) 12/01/2018 09/01/2017, 12/01/2013 Diabetes: Ophthalmology Exam 01/04/2020 Diabetes: Pedal Pulse Checked 01/04/2020 Diabetes: Sensory Foot Exam 01/04/2020 Diabetes: Visual Foot Exam 01/04/2020 Colonoscopy (Post-Transplant Patient) 07/12/2020 Diabetes: Hemoglobin A1C 09/08/2024 024, 02/12/2024, 05/20/2023, Additional history exists Influenza Vaccine (#1) 2025 08/21/2020, 2013 Pneumococcal Vaccine: Peds (0 to 5 Years) and At-Risk Patients (6 to 49 Years) Discontinued 09/01/2017, 12/01/2013 Hepatitis B Vaccine Aged Out No longe r eligible based on patient's age to complete this topic Procedures Procedure Name Priority Date/Time Associated Diagnosis Comments URINALYSIS, COMPLETE Routine 06/07/2025 7:39 AM EDT Chronic kidney disease stage 3A (HCC) History of immunosuppressive therapy History of renal transplant Hyperlipidemia, not otherwise specified Vitamin D deficiency, not otherwise specified Idiopathic gout, not otherwise specified Other hyperlipidemia Hypomagnesemia Other iron deficiency anemia Other specified hypoparathyroidism (HCC) Albuminuria, not otherwise specified Poor glycemic control URINE ALBUMIN / CREATININE RATIO Routine 06/07/2025 7:39 AM EDT Chronic kidney disease stage 3A (HCC) History of immunosuppressive therapy History of renal transplant Hyperlipidemia, not otherwise specified Vitamin D deficiency, not otherwise specified Idiopathic gout, not otherwise specified Other hyperlipidemia Hypomagnesemia Other iron deficiency anemia Other specified hypoparathyroidism (HCC) Albuminuria, not otherwise specified Poor glycemic control CREATINE KINASE Routine 06/07/2025 7:39 AM EDT Chronic kidney disease stage 3A (HCC) History of immunosuppressive therapy History of renal transplant Hyperlipidemia, not otherwise specified Vitamin D deficiency, not otherwise specified Idiopathic gout, not otherwise specified Other hyperlipidemia Hypomagnesemia Other iron deficiency anemia Other specified hypoparathyroidism (HCC) Albuminuria, not otherwise specified Poor glycemic control AST Routine 06/07/2025 7:39 AM EDT Chronic kidney disease stage 3A (HCC) History of immunosuppressive therapy History of renal transplant Hyperlipidemia, not otherwise specified Vitamin D deficiency, not otherwise specified Idiopathic gout, not otherwise specified Other hyperlipidemia Hypomagnesemia Other iron deficiency anemia Other specified hypoparathyroidism (HCC) Albuminuria, not otherwise specified Poor glycemic control ALT Routine 06/07/2025 7:39 AM EDT Chronic kidney disease stage 3A (HCC) History of immunosuppressive therapy History of renal transplant Hyperlipidemia, not otherwise specified Vitamin D deficiency, not otherwise specified Idiopathic gout, not otherwise specified Other hyperlipidemia Hypomagnesemia Other iron deficiency anemia Other specified hypoparathyroidism (HCC) Albuminuria, not otherwise specified Poor glycemic control PTH, INTACT Routine 06/07/2025 7:39 AM EDT Chronic kidney disease stage 3A (HCC) History of immunosuppressive therapy History of renal transplant Hyperlipidemia, not otherwise specified Vitamin D deficiency, not otherwise specified Idiopathic gout, not otherwise specified Other hyperlipidemia Hypomagnesemia Other iron deficiency anemia Other specified hypoparathyroidism (HCC) Albuminuria, not otherwise specified Poor glycemic control IRON PANEL (FE, TIBC, TSAT) Routine 06/07/2025 7:39 AM EDT Chronic kidney disease stage 3A (HCC) History of immunosuppressive therapy History of renal transplant Hyperlipidemia, not otherwise specified Vitamin D deficiency, not otherwise specified Idiopathic gout, not otherwise specified Other hyperlipidemia Hypomagnesemia Other iron deficiency anemia Other specified hypoparathyroidism (HCC) Albuminuria, not otherwise specified Poor glycemic control FERRITIN Routine 06/07/2025 7:39 AM EDT Chronic kidney disease stage 3A (HCC) History of immunosuppressive therapy History of renal transplant Hyperlipidemia, not otherwise specified Vitamin D deficiency, not otherwise specified Idiopathic gout, not otherwise specified Other hyperlipidemia Hypomagnesemia Other iron deficiency anemia Other specified hypoparathyroidism (HCC) Albuminuria, not otherwise specified Poor glycemic control MAGNESIUM Routine 06/07/2025 7:39 AM EDT Chronic kidney disease stage 3A (HCC) History of immunosuppressive therapy History of renal transplant Hyperlipidemia, not otherwise specified Vitamin D deficiency, not otherwise specified Idiopathic gout, not otherwise specified Other hyperlipidemia Hypomagnesemia Other iron deficiency anemia Other specified hypoparathyroidism (HCC) Albuminuria, not otherwise specified Poor glycemic control LIPID PANEL Routine 06/07/2025 7:39 AM EDT Chronic kidney disease stage 3A (HCC) History of immunosuppressive therapy History of renal transplant Hyperlipidemia, not otherwise specified Vitamin D deficiency, not otherwise specified Idiopathic gout, not otherwise specified Other hyperlipidemia Hypomagnesemia Other iron deficiency anemia Other specified hypoparathyroidism (HCC) Albuminuria, not otherwise specified Poor glycemic control URIC ACID Routine 06/07/2025 7:39 AM EDT Chronic kidney disease stage 3A (HCC) History of immunosuppressive therapy History of renal transplant Hyperlipidemia, not otherwise specified Vitamin D deficiency, not otherwise specified Idiopathic gout, not otherwise specified Other hyperlipidemia Hypomagnesemia Other iron deficiency anemia Other specified hypoparathyroidism (HCC) Albuminuria, not otherwise specified Poor glycemic control VITAMIN D 25 HYDROXY Routine 06/07/2025 7:39 AM EDT Chronic kidney disease stage 3A (HCC) History of immunosuppressive therapy History of renal transplant Hyperlipidemia, not otherwise specified Vitamin D deficiency, not otherwise specified Idiopathic gout, not otherwise specified Other hyperlipidemia Hypomagnesemia Other iron deficiency anemia Other specified hypoparathyroidism (HCC) Albuminuria, not otherwise specified Poor glycemic control CBC AND DIFFERENTIAL Routine 06/07/2025 7:39 AM EDT Chronic kidney disease stage 3A (HCC) History of immunosuppressive therapy History of renal transplant Hyperlipidemia, not otherwise specified Vitamin D deficiency, not otherwise specified Idiopathic gout, not otherwise specified Other hyperlipidemia Hypomagnesemia Other iron deficiency anemia Other specified hypoparathyroidism (HCC) Albuminuria, not otherwise specified Poor glycemic control RENAL FUNCTION PANEL Routine 06/07/2025 7:39 AM EDT Chronic kidney disease stage 3A (HCC) History of immunosuppressive therapy History of renal transplant Hyperlipidemia, not otherwise specified Vitamin D deficiency, not otherwise specified Idiopathic gout, not otherwise specified Other hyperlipidemia Hypomagnesemia Other iron deficiency anemia Other specified hypoparathyroidism (HCC) Albuminuria, not otherwise specified Poor glycemic control TACROLIMUS, HIGHLY SENSITIVE, LC/MS/MS Routine 06/07/2025 7:39 AM EDT Chronic kidney disease stage 3A (HCC) History of immunosuppressive therapy History of renal transplant Hyperlipidemia, not otherwise specified Vitamin D deficiency, not otherwise specified Idiopathic gout, not otherwise specified Other hyperlipidemia Hypomagnesemia Other iron deficiency anemia Other specified hypoparathyroidism (HCC) Albuminuria, not otherwise specified Poor glycemic control MICROSCOPIC EXAMINATION - DO NOT USE Routine 06/07/2025 7:39 AM EDT HEMOGLOBIN A1C Routine 06/08/2024 7:37 AM EDT History of renal transplant History of immunosuppressive therapy Chronic kidney disease stage 3A (HCC) Hyperlipidemia, not otherwise specified Type 2 diabetes mellitus without complication (HCC) Vitamin D deficiency, not otherwise specified Other iron deficiency anemia from Last 3 Months or Most Recently Relevant to Health Maintenance Results * Tacrolimus, Highly Sensitive, LC/MS/MS (06/07/2025 7:39 AM EDT) [facility] Tacrolimus by Immunoassay 6.6 5.0 - 20.0 ng/mL [facility] Comment: Detection Limit = 0.8 ng/mL Target steady state trough concentration for Tacrolimus varies based on type of organ transplant immunosuppressive protocol and other patient specific factors. Tacrolimus trough concentrations should be interpreted in conjunction with clinical assessments of rejection and tolerability. Values obtained with different assay methods cannot be used interchangeably due to differences in assay methods and cross-reactivty with metabolites, nor should correction factors be applied. Therefore, consistent use of one assay for individual patients is recommended. Tacrolimus assay performed by [facility] [employer]. 06/07/2025 7:39 AM EDT 06/07/2025 us John Dodd MD LAB BLOOD ORDERABLES Final Result [facility] [address] [place] [address] * (ABNORMAL) Urinalysis, Complete w/reflex to Culture (06/07/2025 7:39 AM EDT) Specific [place], Urine 1.027 1.005 - 1.030 [facility] pH Urine 5.5 5.0 - 7.5 [facility] Color, Urine Yellow Yellow [facility] Appearance Urine Clear Clear [facility] WBC Esterase Urine Negative Negative [facility] Protein, Ur 3+(A) Negative/Tra ce [facility] Glucose, Ur 3+(A) Negative [facility] Ketones, Urine Negative Negative [facility] Blood Urine Trace(A) Negative [facility] Bilirubin Urine Negative Negative [facility] Urobilinogen Urine 0.2 0.2 - 1.0 mg/dL [facility] Nitrite, Urine Negative Negative [facility] Microscopic Examination See below: [facility] Comment:Microscopic was su cated and was performed. URINALYSIS REFLEX Comment [facility] Comment:This specimen will n ot reflex to a Urine Culture. Urine Urine specimen obtained by clean catch procedure / Unknown 06/07/2025 7:39 AM EDT 06/07/2025 John Dodd MD LAB URINE ORDERABLES Final Result [facility] [address] [place] [address] * Microscopic Examination (06/07/2025 7:39 AM EDT) WBC, Urine None seen 0 - 5 /hpf [facility] RBC, Urine 0-2 0 - 2 /hpf [facility] Squamous Epithelial, Urine None seen 0 - 10 /hpf [facility] Casts None seen None seen /lpf [facility] Bacteria, Urine None seen None seen/Few [facility] 06/07/2025 7:39 AM EDT 06/07/2025 John Dodd MD LAB MICROBIOLOGY - GENERAL ORDERABLES Final Result [facility] [address] [place] [address] * Iron Panel (Fe, TIBC, TSAT) (06/07/2025 7:39 AM EDT) TIBC 254 250 - 450 ug/dL [facility] UIBC 204 111 - 343 ug/dL [facility] Iron 50 38 - 169 ug/dL [facility] Iron Saturation (TSat) 20 15 - 55 % [facility] Blood Venous blood / Unknown 06/07/2025 7:39 AM EDT 06/07/2025 John Dodd MD LAB BLOOD ORDERABLES Final Result [facility] [address] [place] [address] * (ABNORMAL) Urine Albumin / Creatinine Ratio (06/07/2025 7:39 AM EDT) Creatinine, Ur 97.3 Not Estab. mg/dL [facility] Albumin, Urine 784.2 Not Estab. ug/mL [facility] Comment: Results confirmed on dilution. Albumin/Creatin ine Ratio 806(H) 0 - 29 mg/g creat [facility] Comment: Normal: 0 - 29 Moderately increased: 30 - 300 Severely increased: >300 Urine Urine specimen obtained by clean catch procedure / Unknown 06/07/2025 7:39 AM EDT 06/07/2025 John Dodd MD LAB URINE ORDERABLES Final Result [facility] [address] [place] [address] * (ABNORMAL) Vitamin D 25 Hydroxy (06/07/2025 7:39 AM EDT) Vitamin D, 25-OH, Total 26.9(L) 30.0 - 100.0 ng/mL [facility] Comment: Vitamin D deficiency has been defined by the [place] of Medicine and an Endocrine Society practice guideline as a level of serum 25-OH vitamin D less than 20 ng/mL (1,2). The Endocrine Society went on to further define vitamin D insufficiency as a level between 21 and 29 ng/mL (2). 1. IOM ([place] of Medicine). 2010. Dietary reference intakes for calcium and D. [place]: The National Academies Press. 2. Clemente MF, Kim NC, Keyla IBARRA, et al. Evaluation, treatment, and prevention of vitamin D deficiency: an Endocrine Society clinical practice guideline. JCEM. 2010; 96(7):1911-30. Blood Venous blood / Unknown 06/07/2025 7:39 AM EDT 06/07/2025 us John Dodd MD LAB BLOOD ORDERABLES Final Result [facility] [address] [place] [address] * (ABNORMAL) CBC and Differential (06/07/2025 7:39 AM EDT) WBC 7.7 3.4 - 10.8 x10E3/uL [facility] RBC 4.37 4.14 - 5.80 x10E6/uL [facility] Hemoglobin 13.7 13.0 - 17.7 g/dL [facility] Hematocrit 41.7 37.5 - 51.0 % [facility] MCV 95 79 - 97 fL [facility] MCH 31.4 26.6 - 33.0 pg [facility] MCHC 32.9 31.5 - 35.7 g/dL [facility] RDW 13.7 11.6 - 15.4 % [facility] Platelets 127(L) 150 - 450 x10E3/uL [facility] Neutrophils Relative 78 Not Estab. % [facility] Lymphocytes Relative 12 Not Estab. % [facility] Monocytes 9 Not Estab. % [facility] Eosinophils Relative 1 Not Estab. % [facility] Basophils Relative 0 Not Estab. % [facility] Neutrophils Absolute 6.0 1.4 - 7.0 x10E3/uL [facility] Lymphocytes Absolute 0.9 0.7 - 3.1 x10E3/uL [facility] Monocytes Absolute 0.7 0.1 - 0.9 x10E3/uL [facility] Eosinophils Absolute 0.1 0.0 - 0.4 x10E3/uL [facility] Basophils Absolute 0.0 0.0 - 0.2 x10E3/uL [facility] Immature Granulocytes 0 Not Estab. % [facility] Immature Grans (Absolute) 0.0 0.0 - 0.1 x10E3/uL [facility] Blood Venous blood / Unknown 06/07/2025 7:39 AM EDT 06/07/2025 John Dodd MD LAB BLOOD ORDERABLES Final Result Performing Organization Address City/[facility]/ZIP Co de Phone Number [facility] [address] [place] [address] * Uric Acid (06/07/2025 7:39 AM EDT) Uric Acid 6.2 3.8 - 8.4 mg/dL [facility] Comment:Therapeutic target f or gout patients: <6.0 Blood Venous blood / Unknown 06/07/2025 7:39 AM EDT 06/07/2025 John Dodd MD LAB BLOOD ORDERABLES Final Result [facility] [address] [place] [address] * ALT (06/07/2025 7:39 AM EDT) ALT (SGPT) 14 0 - 44 IU/L [facility] Blood Venous blood / Unknown 06/07/2025 7:39 AM EDT 06/07/2025 John Dodd MD LAB BLOOD ORDERABLES Final Result [facility] [address] [place] [address] * AST (06/07/2025 7:39 AM EDT) AST (SGOT) 15 0 - 40 IU/L [facility] Blood Venous blood / Unknown 06/07/2025 7:39 AM EDT 06/07/2025 John Dodd MD LAB BLOOD ORDERABLES Final Result Performing Organization Address [facility] Co de Phone Number [facility] [address] [place] [address] * PTH, Intact (06/07/2025 7:39 AM EDT) PTH 64 15 - 65 pg/mL [facility] Blood Venous blood / Unknown 06/07/2025 7:39 AM EDT 06/07/2025 John Dodd MD LAB BLOOD ORDERABLES Final Result Performing Organization Address City/[facility]/ZIP Co de Phone Number [facility] [address] [place] [address] * Magnesium (06/07/2025 7:39 AM EDT) Magnesium 2.0 1.6 - 2.3 mg/dL [facility] Blood Venous blood / Unknown 06/07/2025 7:39 AM EDT 06/07/2025 John Dodd MD LAB BLOOD ORDERABLES Final Result [facility] [address] [place] [address] * Ferritin (06/07/2025 7:39 AM EDT) Pathologist [facility] Ferritin 221 30 - 400 ng/mL [facility] Blood Venous blood / Unknown 06/07/2025 7:39 AM EDT 06/07/2025 John Dodd MD LAB BLOOD ORDERABLES Final Result Performing Organization Address City/[facility]/ZIP Co de Phone Number [facility] [address] [place] [address] * CK (06/07/2025 7:39 AM EDT) Pathologist [facility] Creatine Kinase (CK/CPK) 92 41 - 331 U/L [facility] Blood Venous blood / Unknown 06/07/2025 7:39 AM EDT 06/07/2025 John Dodd MD LAB BLOOD ORDERABLES Final Result Performing Organization Address City/[facility]/ZIP Co de Phone Number [facility] [address] [place] [address] * (ABNORMAL) Renal Function Panel (06/07/2025 7:39 AM EDT) Pathologist [facility] Glucose 189(H) 70 - 99 mg/dL [facility] BUN 40(H) 8 - 27 mg/dL [facility] Creatinine 1.51(H) 0.76 - 1.27 mg/dL [facility] eGFR CKD-EPI CR 2020 51(L) >59 mL/min/1.7 3 [facility] BUN/Creatinine Ratio 26(H) 10 - 24 [facility] Sodium 141 134 - 144 mmol/L [facility] Potassium 4.7 3.5 - 5.2 mmol/L [facility] Chloride 107(H) 96 - 106 mmol/L [facility] Bicarbonate (CO2) 20 20 - 29 mmol/L [facility] Calcium 10.2 8.6 - 10.2 mg/dL [facility] Albumin 4.0 3.9 - 4.9 g/dL [facility] Phosphorus 3.4 2.8 - 4.1 mg/dL [facility] Blood Venous blood / Unknown 06/07/2025 7:39 AM EDT 06/07/2025 John Dodd MD LAB BLOOD ORDERABLES Final Result [facility] [address] [place] [address] * Lipid panel (06/07/2025 7:39 AM EDT) Cholesterol 148 100 - 199 mg/dL [facility] Triglycerides 62 0 - 149 mg/dL [facility] HDL 66 >39 mg/dL [facility] VLDL Cholesterol Justin 13 5 - 40 mg/dL [facility] LDL Calculated 69 0 - 99 mg/dL [facility] Blood Venous blood / Unknown 06/07/2025 7:39 AM EDT 06/07/2025 John Dodd MD LAB BLOOD ORDERABLES Final Result [facility] [address] [place] [address] * (ABNORMAL) Hemoglobin A1c (06/08/2024 7:37 AM EDT) Hemoglobin A1C 8.1(H) 4.8 - 5.6 % [facility] Comment: Prediabetes: 5.7 - 6.4 Diabetes: >6.4 Glycemic control for adults with diabetes: <7.0 Blood specimen (specimen) Venous blood / Unknown 06/08/2024 7:37 AM EDT 06/08/2024 Virgie RAE LAB BLOOD ORDERABLES Final Re sult [facility] [address] [place] [address] from Last 3 Months or Most Recently Relevant to Health Maintenance Insurance Medicare Medicaid [place] Care Teams Command Center Officer Relationship Specialty Start Date End Date Carla Burns MD [facility] [address] [place], [place] PCP - General Internal Medicine 10/29/21
== END 2025-07-27 09:04 | disposition home or self-care (01) ==
LOC: HO.HGI 08:27
PROVIDERS: PCP Internal Medicine; Visit Provider Nurse Practitioner Family
DX: Z12.11 Encounter for screening for malignant neoplasm of colon (principal); Z01.818 Encounter for other preprocedural examination
CPT/HCPCS: 99024

== ENCOUNTER → 2025-07-27 08:26 | Outpatient (BNVA) | payer MEDICARE, SELFPAY | PROVIDERS: PCP Internal Medicine; Visit Provider Nurse Practitioner Family | DX: Z01.818 Encounter for other preprocedural examination (principal) | CPT/HCPCS: 99212 ==

== ENCOUNTER 2025-07-29 08:10 | Outpatient (AMB) | payer MEDICARE, SELFPAY ==
[2025-07-29 08:14] VITALS: BP 128/72; PULSE 75; TEMP 36.3; O2SAT 99; BMI 18.2
--- NOTE | 2025-07-29 08:14 | A.OFFPC_ITS ---
Vital Signs 07/29/25 08:14 Height 6 ft 2 in Weight 141 lb 8 oz BMI 18.2 BP 128/72 Blood Pressure Location Rt brachial Position Sitting Pulse 75 Pulse Source Pulse Oximeter Temp 97.3 F Temp Source Temporal Artery Scan Pulse Oximetry (%) 99 Oxygen Delivery Method Room Air Intake Visit Reasons: DM , CKD Allergies No Known Allergies Allergy (Verified 07/29/25 08:17) Tobacco use date assessed: 07/29/25 Fall risk assessment: No Falls in past year Last assessed Fall Risk: 07/29/25 Dental Screening Dental Screen Date: 07/29/25 Did you have a dental visit in the last 12 months?: No Did you have a dental problem in the last 6 months where you did not have access to dental care?: No Was dental information given to patient?: Patient declined [facility] Medical History Tubular adenoma of colon Diabetes type 2, uncontrolled Positive TB test Lumbar degenerative disc disease COPD (chronic obstructive pulmonary disease) Diabetic nephropathy associated with type 2 diabetes mellitus Hypercalcemia Hypertension Dyslipidemia Diabetic polyneuropathy associated with type 2 diabetes mellitus Diabetes type 2, controlled Surgical History Hx of colonoscopy Hx of kidney transplant Hx of umbilical hernia repair Family History Father Type 2 diabetes mellitus Kidney disease Mother Polycystic kidney disease Son No problems noted. Daughter No problems noted. Brother No problems noted. Brother No problems noted. Brother No problems noted. Brother Pancreatic cancer Brother No problems noted. Social History Household Members: Significant Other Housing: Apartment Alcohol intake: former Patient Tobacco Use Status: Former Tobacco user Tobacco use type: Cigarette Cigarettes Per Day: 1 e-Cigarette/Vaping Use: Never Used Second Hand Smoke Exposure: Yes Substance Use Type: Marijuana service: No Current occupational status: employed Cognitive needs: No Hearing needs: No Vision needs: No Questionnaire PHQ-9 Over the last 2 weeks, how often have you been bothered by any of the following problems? 1. Little interest or pleasure in doing things: not at all 2. Feeling down, depressed, or hopeless: not at all 3. Trouble falling or staying asleep, or sleeping too much: not at all 4. Feeling tired or having little energy: not at all 5. Poor appetite or overeating: not at all 6. Feeling bad about yourself - or that you are a failure or have let yourself or your family down: not at all 7. Trouble concentrating on things, such as reading the newspaper or watching television: not at all 8. Moving or speaking so slowly that other people could have noticed. Or the opposite - being so fidgety or restless that you have been moving around a lot more than usual: not at all 9. Thoughts that you would be better off or of hurting yourself in some way: not at all Total score: 0 Source: Developed by Drs. Mikhail Estes, Tina Lemos, Alec Pascual and colleagues, with an educational nallely from [employer]. Thrive Questionnaire Date Thrive assessed: 12/28/24 I am a: Patient What is your living situation today?: I have a steady place to live Within the past 12 months, did the food you bought not last and you didn't have the money to get more?: I choose not to answer this question Within the past 12 months, did you worry whether your food would run out before you got money to buy more?: Never true Do you have trouble paying for medicines?: No Do you have trouble getting transportation to medical appointments?: No Do you have trouble paying your heating and electricity bill?: No Do you have trouble taking care of your child, family member or friend?: No Do you have trouble with day-to-day activities such as bathing, preparing meals, shopping, managing finances, etc.?: No Are you currently unemployed and looking for a job?: No Are you interested in more education?: No Please select the resources that you would like help with: None Currently or been in a relationship where the following occur: I choose not to answer THRIVE Score: 0 AUDIT C Alcohol Use Questionnaire (AUDIT-C) 1. How often do you have a drink containing alcohol?: Never 3. How often do you have six or more drinks on one occasion?: Never Total Score: 0 JACOBY-7 AMB Questionnaire JACOBY-7 Date JACOBY - 7 assessed: 12/28/24 Feeling nervous, anxious, or on edge: 0 = Not at all Not being able to stop or control worryin = Not at all Worrying too much about different things: 0 = Not at all Trouble relaxin = Not at all Being so restless that it is hard to sit still: 0 = Not at all Becoming easily annoyed or irritable: 0 = Not at all Feeling afraid as if something awful might happen: 0 = Not at all Total JACOBY-7 score (0-4 normal; 5-9 mild; 10-14 moderate; 15-21 severe): 0 Source: Developed by Drs. Mikhail Estes, Tina Lemos, Alec Pascual and colleagues, with an educational nallely from [employer]. Physical exam (Primary Care) Vital Signs: Last Vital Signs Temp 97.3 F 07/29/25 08:14 Pulse 75 07/29/25 08:14 BP 128/72 07/29/25 08:14 Pulse Ox 99 07/29/25 08:14 Oxygen Delivery Method Room Air 07/29/25 08:14 BMI result Body Mass Index 18.2 Tobacco/Smoking Status: Tobacco use Status Tobacco use date assessed 07/29/25 07/29/25 08:17 Patient Tobacco Use Status Former Tobacco user 07/29/25 08:17 Tobacco use type Cigarette 07/29/25 08:17 e-Cigarette/Vaping Use Never Used 07/29/25 08:17 PHQ-9: PHQ-9 Score PHQ-9: Total score 0 07/29/25 08:50 Thrive Assessment: Date of Thrive Assessment Date Thrive assessed 12/28/24 07/29/25 08:17 Currently or been in a relationship where the following occur: I choose not to answer Const General: alert; No acute distress Eyes Conjunctivae: conjunctivae normal Resp Auscultation: clear to auscultation bilaterally Cardio Rate: regular rate Rhythm: regular rhythm GI Inspection: Yes normal to inspection Extrem General: Yes normal to inspection and No edema Results AMB Hemoglobin A1c AMB Hemoglobin A1c 7.6 % Last Edit by Gracie Henson CMA on 07/29/25 08:22 Immunizations pneumoc 20-faraz conj-dip cr(PF) 0.5 mL IM syringe Performing Provider: Carla Burns MD [facility] [place] Administered by: Shima Modi CMA on 07/29/25 08:46 Dose Route Admin Location Dispensed Lot Number Expiration Date NDC Extension Edger 0.5 mL IM Right Deltoid 0.5 mL [id number] 05/31/27 [employer] /PFIZER Total Dispensed Waste 0.5 mL 0 % VIS Given Date VIS Provided VIS Publication Date 07/29/25 Single Vaccine 25 Eligibility Eligibility Date Funding Source Not [facility] Eligible 07/29/25 Private Results Reviewed Results Reviewed: Laboratory Last Values Hgb A1c (Clinic) 7.6 % (4.0-6.0) H 07/29/25 08:18 Coding Level of Care Code Est Pt Level 4 (09708) Complex EM visit Add On G2211 Diagnoses Type 2 diabetes mellitus with hyperglycemia, without long-term current use of insulin E11.65 Diabetes mellitus terminal press operator insulin use: without terminal press operator use Essential hypertension I10 Hypertension type: essential hypertension Dyslipidemia E78.5 Hx of kidney transplant Z94.0 Pulmonary emphysema, unspecified emphysema type J43.9 COPD type: emphysema Emphysema type: unspecified Assessment & Plan Assessment & Plan (1) Type 2 diabetes mellitus with hyperglycemia: Comment: Dr. Diego Code(s): E11.65 - Type 2 diabetes mellitus with hyperglycemia Category: Medical Qualifiers: Diabetes mellitus snf insulin use: without terminal press operator use Qualifi ed Code(s): E11.65 - Type 2 diabetes mellitus with hyperglycemia Plan: Decrease the amount of carbohydrate intake, pasta, bread, rice and potatoes are all sugar and that is aside from all the sweet stuff, remember that fruits are good but they are Sweet also. Hemoglobin A1c goal of less than 7.0 patient on Jardiance right now repaglinide Januvia. (2) Hypertension: Code(s): I10 - Essential (primary) hypertension Category: Medical Qualifiers: Hypertension type: essential hypertension Qualified Code(s): I10 - Essential (primary) hypertension Plan: Continue with blood pressure medication. Decrease salt intake and exercise takes lisinopril 30 mg once a day (3) Dyslipidemia: Code(s): E78.5 - Hyperlipidemia, unspecified Category: Medical Plan: Avoid fried foods, chicken skin, eggs, butter margarine, pastries and meat. Be it pork or beef they have a lot of cholesterol March 2025 last blood work LDL goal of less than 100 and triglyceride of less than 150 patient takes simvastatin 20 mg once a day (4) Hx of kidney transplant: Comment: Polycystic kidney disease, December 2013 renal transplant [facility] Code(s): Z94.0 - Kidney transplant status Category: Surgical Plan: Continue to follow-up with Nephrology noted renal function is elevated will have to repeat the blood work (5) COPD (chronic obstructive pulmonary disease): Code(s): J44.9 - Chronic obstructive pulmonary disease, unspecified Category: Medical Qualifiers: COPD type: emphysema Emphysema type: unspecified Qualified Code(s): J43.9 - Emphysema, unspecified Plan: Stable Plan History of Present Illness The patient is a 65-year-old male presenting for follow-up of chronic conditions and preventative care. The patient has a history of renal transplant in 2013 and has been managing diabetes mellitus, Chronic Obstructive Pulmonary Disease (COPD), hypertension, and hypercholesterolemia. He also has chronic kidney disease and was last seen in March 2025 for a follow-up. The patient underwent a colonoscopy in August 2024 and was advised to have another this year. He saw gastroenterology in July and is scheduled for a colonoscopy in 8 months. The last complete blood work was done on March 30, showing mild anemia with a hemoglobin level of 13.7 and a platelet count of 117. Renal function tests showed a creatinine level of 1.74 and BUN of 43, indicating the need for follow- up. The patient's hemoglobin A1c is 7.6, indicating suboptimal control of diabetes. Liver function tests and cholesterol levels are within normal limits, with an LDL of 62. The patient is currently on Jardiance, repaglinide, and Januvia for diabetes management, with a goal to reduce hemoglobin A1c to below 7.0. He takes lisinopril for hypertension and simvastatin for hypercholesterolemia. Preventative care includes vaccinations, with the patient having received shingles, tetanus, and pneumonia shots. The flu shot is planned for August. Health Maintenance - Colonoscopy scheduled in 8 months - Vaccinations: shingles, tetanus, pneumonia, and flu (planned for August) Social History - Substance use: Occasionally smokes marijuana, advised to prefer edibles over smoking due to cardiovascular risks Review of Systems Physical Exam Results - Labs: Hemoglobin 13.7, Platelet count 117, Creatinine 1.74, BUN 43, Hemoglobin A1c 7.6, LDL 62 Plan Patient was informed and verbally consented to the use of an ambient scribe for clinic note documentation during this visit. 1. Diabetes Mellitus The patient's hemoglobin A1c is currently 7.6, indicating suboptimal control of diabetes. The patient is on Jardiance, repaglinide, and Januvia, with a goal to reduce A1c to below 7.0. A new medication, Trulicity, a once-weekly injection, will be added to the regimen, and Januvia will be discontinued. 2. Chronic Kidney Disease The patient's renal function shows a creatinine level of 1.74 and BUN of 43, which requires follow-up. The patient is advised to maintain adequate hydration and follow up with nephrology. 3. Preventative Care The patient is scheduled for a colonoscopy in 8 months and has received vaccinations for shingles, tetanus, and pneumonia. A flu shot is planned for August. Discussion Notes We discussed the patient's current diabetes management and the need to improve glycemic control by adding Trulicity and discontinuing Januvia. The importance of maintaining hydration for kidney health was emphasized, and follow-up with nephrology was recommended. Preventative care measures, including scheduling a colonoscopy and updating vaccinations, were reviewed. Patient Instructions - Continue current diabetes medications and start Trulicity as prescribed. - Maintain adequate hydration to support kidney function. - Schedule and attend the upcoming colonoscopy appointment. - Receive the flu shot in August. Orders: Orders Pneumococcal 20 Immunization Today Z23 - Encounter for immunization AMB Hemoglobin A1c Today Z13.9 - Encounter for screening, unspecified Medications: New dulaglutide (Trulicity) 0.75 mg (0.5 mL) subcut QWEEK 2 mL 3RF E11.65 - Type 2 diabetes mellitus with hyperglycemia
--- OUTSIDE RECORDS SUMMARY | 2025-07-29 08:51 | XMS_ITS | Encounter Summary ---
Author Organization [facility] Address [address] [place] [address] Phone Care Team Providers Care Specialty Sales Representative Name Role Phone Carla Burns MD Primary Care Provider [phone] Reason for Visit * Reason Comments Med Refill Encounter Details Date Type Department Care Team (Late st Contact Info) Description 07/15/2023 Refill [facility] [address] [place] [address] Virgie Grajeda PA [address] [place] [address] [place] [address] Social History Tobacco Use Types [...] Clinical Support [facility] [address] [place] [address] Terese Garza FNP-C [address] [place] [address] documented as of this encounter Visit Diagnoses Not on filedocumented in this encounter Care Teams Specialty Sales Representative Relationship Specialty Start Date End Date Carla Burns MD [facility] [address] [facility] [place] [facility] - General Internal Medicine 10/29/21 documented as of this encounter
--- OUTSIDE RECORDS SUMMARY | 2025-07-29 08:51 | XMS_ITS | Clinical Summary ---
Author Organization [facility], Address [address] [place] [address] [place] [address] Phone Care Team Providers Care Rivet Catcher Name Role Phone Carla Burns MD Primary Care Provider [phone] Allergies No known active allergies Medications Lancets [...] Only [facility], [address] [place] [address] Jesica Lemus MA 06/10/2025 9:45 AM EDT Office Visit [facility] [address] [place] [address] John Dodd MD History of renal transplant (Primary Dx); History of immunosuppressive therapy; Type 2 diabetes mellitus with diabetic chronic kidney disease (HCC); Hypertension; Autosomal dominant polycystic kidney disease; Chronic kidney disease stage 3A (HCC) 05/31/2025 Orders Only [facility] [address] [place] [address] Jesica Lemus MA Chronic kidney disease stage [...] Support [facility] [address] [place] [id number] Terese Garza, GROCERY BUYER-C [address] [place] [address] Health Maintenance Due Date Last Done Comments [...] Highly Sensitive, LC/MS/MS (06/07/2025 7:39 AM EDT) [facility] Tacrolimus by Immunoassay 6.6 5.0 - 20.0 ng/mL [facility] Comment: Detection Limit = 0.8 ng/mL [...] LAB BLOOD ORDERABLES Final Result [facility] [address] [place] [address] * (ABNORMAL) Urinalysis, Complete w/reflex to Culture (06/07/2025 7:39 AM EDT) Specific [place], Urine 1.027 1.005 - 1.030 [facility] pH Urine 5.5 5.0 - 7.5 [facility] Color, Urine Yellow Yellow [facility] Appearance Urine Clear Clear [facility] [place] [phone] WBC Esterase Urine Negative Negative [facility] Protein, Ur 3+(A) Negative/Tra ce [facility] Glucose, Ur 3+(A) Negative [facility] Ketones, Urine Negative Negative [facility] [place] Blood Urine Trace(A) Negative [facility] [phone] Bilirubin Urine Negative Negative [facility] Urobilinogen Urine 0.2 0.2 - 1.0 mg/dL [facility] Nitrite, Urine Negative Negative [facility] [phone] Microscopic Examination See below: [facility] [phone] Comment:Microscopic was su cated and was performed. URINALYSIS REFLEX Comment [facility] Comment:This specimen will n ot reflex to a Urine Culture. Urine Urine specimen obtained by clean catch procedure / Unknown 06/07/2025 7:39 AM EDT 06/07/2025 John Dodd MD LAB URINE ORDERABLES Final Result [facility] [address] [place] [address] * Microscopic Examination (06/07/2025 7:39 AM EDT) WBC, Urine None seen 0 - 5 /hpf [facility] RBC, Urine 0-2 0 - 2 /hpf [facility] Squamous Epithelial, Urine None seen 0 - 10 /hpf [facility] Casts None seen None seen /lpf [facility] Bacteria, Urine None seen None seen/Few [facility] 06/07/2025 7:39 AM EDT 06/07/2025 John Dodd MD LAB MICROBIOLOGY - GENERAL ORDERABLES Final Result [facility] [address] [place] [address] * Iron Panel (Fe, TIBC, TSAT) (06/07/2025 7:39 AM EDT) TIBC 254 250 - 450 ug/dL [facility] UIBC 204 111 - 343 ug/dL [facility] Iron 50 38 - 169 ug/dL [facility] Iron Saturation (TSat) 20 15 - 55 % [facility] Blood Venous blood / Unknown 06/07/2025 7:39 AM EDT 06/07/2025 John Dodd MD LAB BLOOD ORDERABLES Final Result [facility] [address] [place] [address] * (ABNORMAL) Urine Albumin / Creatinine Ratio (06/07/2025 7:39 AM EDT) Creatinine, Ur 97.3 Not Estab. mg/dL [facility] Albumin, Urine 784.2 Not Estab. ug/mL [facility] Comment: Results confirmed on dilution. Albumin/Creatin ine Ratio 806(H) 0 - 29 mg/g creat [facility] Comment: Normal: 0 - 29 Moderately increased: 30 - 300 Severely increased: >300 Urine Urine specimen obtained by clean catch procedure / Unknown 06/07/2025 7:39 AM EDT 06/07/2025 John Dodd MD LAB URINE ORDERABLES Final Result [facility] [address] [place] [address] * (ABNORMAL) Vitamin D 25 Hydroxy (06/07/2025 7:39 AM EDT) Vitamin D, 25-OH, Total 26.9(L) 30.0 - 100.0 ng/mL [facility] Comment: Vitamin D deficiency has been defined by the [place] of Medicine and an Endocrine Society practice guideline as a level of serum 25-OH vitamin D less than 20 ng/mL (1,2). The Endocrine Society went on to further define vitamin D insufficiency as a level between 21 and 29 ng/mL (2). 1. IOM ([place] of Medicine). 2010. Dietary reference intakes for calcium and D. [place]: The National Academies Press. 2. Clemente MF, Kim NC, Keyla IBARRA, et al. Evaluation, treatment, and prevention of vitamin D deficiency: an Endocrine Society clinical practice guideline. JCEM. 2010; 96(7):1911-30. Blood Venous blood / Unknown 06/07/2025 7:39 AM EDT 06/07/2025 us John Dodd MD LAB BLOOD ORDERABLES Final Result [facility] [address] [place] [address] * (ABNORMAL) CBC and Differential (06/07/2025 7:39 AM EDT) WBC 7.7 3.4 - 10.8 x10E3/uL [facility] RBC 4.37 4.14 - 5.80 x10E6/uL [facility] Hemoglobin 13.7 13.0 - 17.7 g/dL [facility] Hematocrit 41.7 37.5 - 51.0 % [facility] MCV 95 79 - 97 fL [facility] MCH 31.4 26.6 - 33.0 pg [facility] MCHC 32.9 31.5 - 35.7 g/dL [facility] RDW 13.7 11.6 - 15.4 % [facility] Platelets 127(L) 150 - 450 x10E3/uL [facility] Neutrophils Relative 78 Not Estab. % [facility] Lymphocytes Relative 12 Not Estab. % [facility] Monocytes 9 Not Estab. % [facility] Eosinophils Relative 1 Not Estab. % [facility] Basophils Relative 0 Not Estab. % [facility] Neutrophils Absolute 6.0 1.4 - 7.0 x10E3/uL [facility] Lymphocytes Absolute 0.9 0.7 - 3.1 x10E3/uL [facility] Monocytes Absolute 0.7 0.1 - 0.9 x10E3/uL [facility] Eosinophils Absolute 0.1 0.0 - 0.4 x10E3/uL [facility] Basophils Absolute 0.0 0.0 - 0.2 x10E3/uL [facility] Immature Granulocytes 0 Not Estab. % [facility] Immature Grans (Absolute) 0.0 0.0 - 0.1 x10E3/uL [facility] Blood Venous blood / Unknown 06/07/2025 7:39 AM EDT 06/07/2025 John Dodd MD LAB BLOOD ORDERABLES Final Result Performing Organization Address City/[facility]/ZIP Co de Phone Number [facility] [address] [place] [address] * Uric Acid (06/07/2025 7:39 AM EDT) Uric Acid 6.2 3.8 - 8.4 mg/dL [facility] Comment:Therapeutic target f or gout patients: <6.0 Blood Venous blood / Unknown 06/07/2025 7:39 AM EDT 06/07/2025 John Dodd MD LAB BLOOD ORDERABLES Final Result [facility] [address] [place] [address] * ALT (06/07/2025 7:39 AM EDT) ALT (SGPT) 14 0 - 44 IU/L [facility] Blood Venous blood / Unknown 06/07/2025 7:39 AM EDT 06/07/2025 John Dodd MD LAB BLOOD ORDERABLES Final Result [facility] [place] [address] [place] [address] * AST (06/07/2025 7:39 AM EDT) AST (SGOT) 15 0 - 40 IU/L [facility] Blood Venous blood / Unknown 06/07/2025 7:39 AM EDT 06/07/2025 John Dodd MD LAB BLOOD ORDERABLES Final Result Performing Organization Address [facility] Co de Phone Number [facility] [address] [place] [address] * PTH, Intact (06/07/2025 7:39 AM EDT) PTH 64 15 - 65 pg/mL [facility] Blood Venous blood / Unknown 06/07/2025 7:39 AM EDT 06/07/2025 John Dodd MD LAB BLOOD ORDERABLES Final Result Performing Organization Address City/[facility]/ZIP Co de Phone Number [facility] [address] [place] [address] * Magnesium (06/07/2025 7:39 AM EDT) Magnesium 2.0 1.6 - 2.3 mg/dL [facility] Blood Venous blood / Unknown 06/07/2025 7:39 AM EDT 06/07/2025 John Dodd MD LAB BLOOD ORDERABLES Final Result [facility] [address] [place] [address] * Ferritin (06/07/2025 7:39 AM EDT) Pathologist [facility] Ferritin 221 30 - 400 ng/mL [facility] Blood Venous blood / Unknown 06/07/2025 7:39 AM EDT 06/07/2025 John Dodd MD LAB BLOOD ORDERABLES Final Result Performing Organization Address City/[facility]/ZIP Co de Phone Number [facility] [place] [address] [place] [address] * CK (06/07/2025 7:39 AM EDT) Pathologist [facility] Creatine Kinase (CK/CPK) 92 41 - 331 U/L [facility] Blood Venous blood / Unknown 06/07/2025 7:39 AM EDT 06/07/2025 John Dodd MD LAB BLOOD ORDERABLES Final Result Performing Organization Address City/[facility]/ZIP Co de Phone Number [facility] [address] [place] [address] * (ABNORMAL) Renal Function Panel (06/07/2025 7:39 AM EDT) Pathologist [facility] Glucose 189(H) 70 - 99 mg/dL [facility] BUN 40(H) 8 - 27 mg/dL [facility] Creatinine 1.51(H) 0.76 - 1.27 mg/dL [facility] eGFR CKD-EPI CR 2020 51(L) >59 mL/min/1.7 3 [facility] BUN/Creatinine Ratio 26(H) 10 - 24 [facility] Sodium 141 134 - 144 mmol/L [facility] Potassium 4.7 3.5 - 5.2 mmol/L [facility] Chloride 107(H) 96 - 106 mmol/L [facility] Bicarbonate (CO2) 20 20 - 29 mmol/L [facility] Calcium 10.2 8.6 - 10.2 mg/dL [facility] Albumin 4.0 3.9 - 4.9 g/dL [facility] Phosphorus 3.4 2.8 - 4.1 mg/dL [facility] Blood Venous blood / Unknown 06/07/2025 7:39 AM EDT 06/07/2025 John Dodd MD LAB BLOOD ORDERABLES Final Result [facility] [place] [address] [place] [address] * Lipid panel (06/07/2025 7:39 AM EDT) Cholesterol 148 100 - 199 mg/dL [facility] Triglycerides 62 0 - 149 mg/dL [facility] HDL 66 >39 mg/dL [facility] VLDL Cholesterol Justin 13 5 - 40 mg/dL [facility] LDL Calculated 69 0 - 99 mg/dL [facility] Blood Venous blood / Unknown 06/07/2025 7:39 AM EDT 06/07/2025 John Dodd MD LAB BLOOD ORDERABLES Final Result [facility] [address] [place] [address] * (ABNORMAL) Hemoglobin A1c (06/08/2024 7:37 AM EDT) Hemoglobin A1C 8.1(H) 4.8 - 5.6 % [facility] Comment: Prediabetes: 5.7 - 6.4 Diabetes: >6.4 Glycemic control for adults with diabetes: <7.0 Blood specimen (specimen) Venous blood / Unknown 06/08/2024 7:37 AM EDT 06/08/2024 Virgie RAE LAB BLOOD ORDERABLES Final Re sult [facility] [address] [place] [address] from Last 3 Months or Most Recently Relevant to Health Maintenance Insurance Medicare [place] Care Teams Rivet Catcher Relationship Specialty Start Date End Date Carla Burns MD [facility] [place] [address] [place], [place] PCP - General Internal Medicine 10/29/21
--- OUTSIDE RECORDS SUMMARY | 2025-07-29 08:51 | XMS_ITS | Encounter Summary ---
Author Organization [facility] Address [address] [place] [address] Phone Care Team Providers Care Speeder Frame Tender Name Role Phone Carla Burns MD Primary Care Provider [phone] Reason for Visit * Reason Comments Med Refill Encounter Details Date Type Department Care Team (Late st Contact Info) Description 01/09/2023 Refill [facility] [address] [place] [address] Virgie Grajeda PA [address] [place] [address] [place] [address] Social History Tobacco Use Types [...] Clinical Support [facility] [address] [place] [address] Terese Garza FNP-C [address] [place] [address] documented as of this encounter Visit Diagnoses Not on filedocumented in this encounter Care Teams Speeder Frame Tender Relationship Specialty Start Date End Date Carla Burns MD [facility] [address] [facility] [place] PCP - General Internal Medicine 10/29/21 documented as of this encounter
== END 2025-07-29 08:52 | disposition home or self-care (01) ==
LOC: HO.HMCH 08:11
PROVIDERS: PCP Internal Medicine; Visit Provider Internal Medicine
DX: E11.65 Type 2 diabetes mellitus with hyperglycemia (principal); I10 Essential (primary) hypertension; J43.9 Emphysema, unspecified; E78.5 Hyperlipidemia, unspecified; Z94.0 Kidney transplant status; Z23 Encounter for immunization

== ENCOUNTER → 2025-07-29 08:10 | Outpatient (BNVA) | payer MEDICARE, SELFPAY | PROVIDERS: PCP Internal Medicine; Visit Provider Internal Medicine | DX: E11.22 Type 2 diabetes mellitus with diabetic chronic kidney disease (principal); E11.65 Type 2 diabetes mellitus with hyperglycemia; I12.9 Hypertensive chronic kidney disease with stage 1 through stage 4 chronic kidney disease, or unspecified chronic kidney disease; N18.9 Chronic kidney disease, unspecified; E78.5 Hyperlipidemia, unspecified; J43.9 Emphysema, unspecified; E78.00 Pure hypercholesterolemia, unspecified; Z23 Encounter for immunization; Z94.0 Kidney transplant status; Z79.899 Other long term (current) drug therapy | CPT/HCPCS: 83036; 90471; 90677; 96127; 99212 ==

== ENCOUNTER 2025-08-17 08:25 | Day surgery (SDC) | payer MEDICARE, SELFPAY ==
[2025-08-17 08:59] VITALS: BMI 17.9
[2025-08-17 09:05] VITALS: BP 158/83; PULSE 66; RESP 16; TEMP 37.2; O2SAT 99
[2025-08-17] MEDS: Lactated Ringers 1,000 ML 80 ML IVCONT (09:15)
[2025-08-17 09:20] LABS: Glucose, Whole Blood 133 mg/dL (60-115)
--- NOTE | 2025-08-17 09:32 | HO.ANESPROP2 ---
[facility] Active Problems Active Problems: All Active Problems Anemia (Acute) CKD (chronic kidney disease) stage 3, GFR 30-59 ml/min (Acute) Medicare annual wellness visit, subsequent (Acute) Hx of kidney transplant (Acute) Type 2 diabetes mellitus with hyperglycemia (Acute) COPD (chronic obstructive pulmonary disease) (Acute) Diabetic nephropathy associated with type 2 diabetes mellitus (Acute) Hypercalcemia (Acute) Hypertension (Acute) Dyslipidemia (Acute) Diabetic polyneuropathy associated with type 2 diabetes mellitus (Acute) Past Medical History Medical History Tubular adenoma of colon Diabetes type 2, uncontrolled Positive TB test Lumbar degenerative disc disease COPD (chronic obstructive pulmonary disease) Diabetic nephropathy associated with type 2 diabetes mellitus Hypercalcemia Hypertension Dyslipidemia Diabetic polyneuropathy associated with type 2 diabetes mellitus Diabetes type 2, controlled Family History Family History Father Type 2 diabetes mellitus Kidney disease Mother Polycystic kidney disease Son No problems noted. Daughter No problems noted. Brother No problems noted. Brother No problems noted. Brother No problems noted. Brother Pancreatic cancer Brother No problems noted. Family history of problems with anesthesia: No Surgical History Surgical History Hx of colonoscopy Hx of kidney transplant Hx of umbilical hernia repair History of Problems with Anesthesia: No Social History Social History Household Members: Significant Other Housing: Apartment Alcohol intake: former Patient Tobacco Use Status: Current everyday Tobacco user Tobacco use type: Cigarette Cigarettes Per Day: 1 e-Cigarette/Vaping Use: Never Used Second Hand Smoke Exposure: Yes Use of substances other than those prescribed or required for medical reasons: No Substance Use Type: Marijuana Are you DNR?: No Advance Directives: No Advance Directives Information Provided: Yes Poor oral hygiene: No service: No Current occupational status: employed Cognitive needs: No Hearing needs: No Vision needs: No Meds Allergies Allergy/AdvReac Type Severity Reaction Status Date / Time No Known Allergies Allergy Verified 07/29/25 08:17 Active Medications: Current Medications Lactated Ringer's (Lr) 1,000 mls @ 80 mls/hr IVCONT .[id number] GWENDOLYN Last Admin: 08/17/25 09:15 Dose: 80 mls/hr Naloxone HCl (Naloxone Hcl 0.4 Mg/Ml Vial) 0.04 mg IVPUSH Q5M PRN PRN Reason: Excessive sedation or RR < 8 Home Medications ?Medication ?Instructions ?Recorded ?Confirmed ?Last Taken ?Type blood sugar diagnostic #10 ea 10/04/20 07/22/24 Unknown History lancets 28 gauge #100 ea 10/04/20 07/22/24 Unknown History magnesium oxide 400 mg (241.3 mg 400 mg PO QAM 10/04/20 07/22/24 Unknown History magnesium) tablet simvastatin 20 mg tablet 20 mg PO DAILY 10/04/20 07/22/24 Unknown History tacrolimus 4 mg tablet,extended 8 mg PO DAILY 07/27/25 Unknown History release 24 hr (Envarsus XR) Exam Height,Weight and Vital Signs: Height 6 ft 2 in Weight 63.4 kg Last Vital Signs Temp 99.0 F 08/17/25 09:05 Pulse 66 08/17/25 09:05 Resp 16 08/17/25 09:05 BP 158/83 H 08/17/25 09:05 Pulse Ox 99 08/17/25 09:05 O2 Del Method Room Air 08/17/25 09:05 Pertinent Lab Results Pertinent Lab Results: Laboratory Tests 08/17/25 09:17 POC Glucose 133 H Airway Mallampati Class: II (edentulous on bottom) TM Dist: >3cm Neck ROM: Full Denture: Upper Heart: rrr Lungs: cta Assessment and Plan Assessment Anesthesia Assessment: Anesthesia Plan Discussed and Chart Reviewed Final Anesthetic Review Family History of Problems with Anesthesia: No History of Problems with Anesthesia: No NPO: Yes ASA Class: III Final Preanesthetic Review: No Changes in Pt Med Stat, Meds/Allgs Chart Reviewed and Consent Obtained/Reviewed Patient Risk: Intermediate Procedure Risk: Low Anesthetic Plan Anesthetic Plan: MAC: Disposition: Standard PACU
--- NOTE | 2025-08-17 09:53 | MHC.SHP ---
Pre-Procedural Eval Section A - 24 Hr Update-Section A only Date of Service: 08/17/25 Section B - Complete if H&P > 30 days Chief Complaint: screening Relevant Family History (Specify if Yes): No Relevant Social History: None Present Medications: see Short Stay Collaborative assessment Medical History: Significant History (Tubular adenoma of colon Diabetes type 2, uncontrolled Positive TB test Lumbar degenerative disc disease COPD (chronic obstructive pulmonary disease) Diabetic nephropathy associated with type 2 diabetes mellitus Hypercalcemia Hypertension Dyslipidemia Diabetic polyneuropathy associated with type 2 d) History of Previous Operations: Relevant previous surgery/procedure and date(s) ( Hx of colonoscopy Hx of kidney transplant Hx of umbilical hernia repair) Allergies: Allergies Allergy/AdvReac Type Severity Reaction Status Date / Time No Known Allergies Allergy Verified 07/29/25 08:17 Review of Systems Sugical H&P ROS: Negative: Constitution, Cardiovascular, Respiratory, Neurological, Psychiatric, Hem-Onc, Allergic/Immunologic, Gastrointestinal, Genitourinary, Musculoskeletal, Integumentary, Endocrine and Eyes/Ears/Nose/Throat Exam Surgical H&P Exam: Normal: HEENT, Normal: Heart, Normal: Lungs, Normal: Extremities, Normal: Abdomen, Normal: Skin and Normal: Neurological Plan Diagnosis/Plan: Unchanged I have reviewed the history and physical and performed a pertinent physical examination on my patient. No changes have occurred unless specified. Time Spent With Patient Time: Total time managing care of this patient today ____ minutes.
--- NOTE | 2025-08-17 10:27 | HO.OPN-COLON ---
Colonoscopy Operative Note Operative Note Date of Service: 08/17/25 Narrative: Operative Information Procedure Description: Colonoscopy Indication: screening, hx of polyps Anesthesia: MAC COLONOSCOPY Instrument: Olympus variable stiffness pediatric scope 190L Colonoscopy Monitoring: Vital signs and clinical assessment, continuous EKG monitoring, Pulse oximetry, Carbon Dioxide monitoring and blood pressure monitoring were done throughout the procedure. Colon withdrawal time was 6 minutes. Procedure: The patient was placed in the left lateral decubitis position and pre-procedure medications were administered. After a digital rectal examination of the ano-rectum, the video colonoscope was inserted into the rectum and advanced through the colon to the cecum/TI. The colonoscope was slowly withdrawn in a retrograde panoramic fashion and the colon mucosa was carefully examined including a retroflexed view of the rectum. Findings and interventions are described below. Procedure Difficulty: easy Findings: Terminal Ileum-normal Cecum:normal Ascending Colon: few tics seen Transverse Colon -normal Descending Colon:normal Sigmoid Colon: moderate diverticulosis Rectum: Retroflexion with medium sized prolapsing internal hemorrhoids seen, grade II Anorectum - normal Intervention: none Colon preparation: [place] Bowel Preparation Scale Right colon; 2 Transverse colon: 2 Left colon; 1-2 (0 = Unprepared colon segment with mucosa not seen due to solid stool that cannot be cleared. 1 = Portion of mucosa of the colon segment seen, but other areas of the colon segment not well seen due to staining, residual stool and/or opaque liquid. 2 = Minor amount of residual staining, small fragments of stool and/or opaque liquid, but mucosa of colon segment seen well. 3 = Entire mucosa of colon segment seen well with no residual staining, small fragments of stool or opaque liquid) Impression and Post Procedure Diagnosis: diverticulosis internal hemorrhoids Plan: High fiber diet leaflet Avoid straining at stool, epsom salts and sitz bath, anusol supps or cream Repeat Colonoscopy in 3-4 years due to some areas of fair prep on left or earlier if clinically indicated Above findings were reviewed with the patient and relevant handouts were provided if indicated.
[2025-08-17 10:35] VITALS: BP 114/75; PULSE 53; RESP 16; TEMP 36.1; O2SAT 100
[2025-08-17 10:50] VITALS: BP 139/59; PULSE 58; RESP 16; TEMP 37.3; O2SAT 100
== END 2025-08-17 11:23 | disposition home or self-care (01) ==
PROVIDERS: PCP Internal Medicine; Visit Provider Internal Medicine Gastroenterology
PROC: 0DJD8ZZ Inspection of Lower Intestinal Tract, Via Natural or Artificial Opening Endoscopic (ICD-10-PCS; CPT 45378; principal; 2025-08-17 10:20)
DX: Z12.11 Encounter for screening for malignant neoplasm of colon (principal); K57.30 Diverticulosis of large intestine without perforation or abscess without bleeding; K64.1 Second degree hemorrhoids; Z86.0101 Personal history of adenomatous and serrated colon polyps; E11.9 Type 2 diabetes mellitus without complications; I10 Essential (primary) hypertension; E78.5 Hyperlipidemia, unspecified; J44.9 Chronic obstructive pulmonary disease, unspecified; F12.90 Cannabis use, unspecified, uncomplicated; Z87.891 Personal history of nicotine dependence; Z79.02 Long term (current) use of antithrombotics/antiplatelets; Z79.899 Other long term (current) drug therapy; Z79.85 Long-term (current) use of injectable non-insulin antidiabetic drugs
CPT/HCPCS: G0105; 82947; J2704

== ENCOUNTER → 2025-08-17 08:25 | Outpatient (BNV) | payer MEDICARE, SELFPAY | PROVIDERS: PCP Internal Medicine; Visit Provider Internal Medicine Gastroenterology | DX: Z12.11 Encounter for screening for malignant neoplasm of colon (principal); Z86.0100 Personal history of colon polyps, unspecified; K57.30 Diverticulosis of large intestine without perforation or abscess without bleeding; K64.1 Second degree hemorrhoids | CPT/HCPCS: G0105 ==

== ENCOUNTER 2025-11-10 06:05 | Outpatient (REF) | payer MEDICARE, SELFPAY ==
--- OUTSIDE RECORDS SUMMARY | 2025-11-10 06:08 | XMS_ITS | Encounter Summary ---
Author Organization [facility] Address [address] [place] [address] Phone Care Team Providers Care Cashier Gambling Name Role Phone Carla Burns MD Primary Care Provider [phone] Reason for Visit * Reason Comments Med Change Request Encounter Details Date Type Department Care Team (Late Contact Info) Description 10/23/2025 Refill [facility] [address] [place] [address] John Dodd MD [address] [place] [address] [place] [address] Social History Tobacco Use Types Packs/Day Years [...] Care Team (Late st Contact Info) Description 12/08/2025 4:15 PM EST Clinical Support [facility] [address] [place] [address] Terese Garza FNP-C [address] [place] [address] [place] [address] documented as of this encounter Visit Diagnoses Not on filedocumented in this encounter Care Teams Cashier Gambling Relationship Specialty Start Date End Date Carla Burns MD [facility] [address] [place] PCP - General Internal Medicine 10/29/21 documented as of this encounter
--- OUTSIDE RECORDS SUMMARY | 2025-11-10 06:08 | XMS_ITS | Encounter Summary ---
Author Organization [facility] Address [address] [place] [address] Phone Care Team Providers Care Loss Prevention Supervisor Name Role Phone Carla Burns MD Primary Care Provider [phone] Reason for Visit * Reason Comments Med Refill Encounter Details Date Type Department Care Team (Late st Contact Info) Description 07/15/2023 Refill [facility] [place] [address] [place] [address] Virgie Grajeda PA [address] [place] [address] [place] [address] Social History Tobacco Use Types [...] Transplant Services [facility] [address] [place] [address] Terese Garza FNP-C [address] [place] [address] documented as of this encounter Visit Diagnoses Not on filedocumented in this encounter Care Teams Loss Prevention Supervisor Relationship Specialty Start Date End Date Carla Burns MD [facility] [address] [place] PCP - General Internal Medicine 10/29/21 documented as of this encounter
--- OUTSIDE RECORDS SUMMARY | 2025-11-10 06:08 | XMS_ITS | Encounter Summary ---
Author Organization [facility] [place] Address [address] [place] [address] Phone Care Team Providers Care Field Service Consultant Name Role Phone Carla Burns MD Primary Care Provider [phone] Reason for Visit * Reason Comments Med Refill Encounter Details Date Type Department Care Team (Late st Contact Info) Description 01/09/2023 Refill [facility] [place] [address] [place] [address] Virgie Grajeda PA [address] [place] [address] [place] [address] Social History Tobacco Use Types [...] Clinical Support [facility] [address] [place] [address] Terese Garza FNP-C [address] [place] [address] documented as of this encounter Visit Diagnoses Not on filedocumented in this encounter Care Teams Field Service Consultant Relationship Specialty Start Date End Date Carla Burns MD [facility] [address] [place] PCP - General Internal Medicine 10/29/21 documented as of this encounter
--- OUTSIDE RECORDS SUMMARY | 2025-11-10 06:09 | XMS_ITS | Clinical Summary ---
Author Organization [facility], Address [address] [place] [address] [place] [address] Phone Care Team Providers Care Er Registrar Name Role Phone Carla Burns MD Primary Care Provider [phone] Allergies No known active allergies Medications lisinopril (PRINIVIL,ZESTRIL) 30 MG tablet Take 1 tablet (30 mg total) by mouth in the morning. 023 Active Jardiance 25 MG tablet Take 25 mg by mouth 1 (one) time each day 024 Active gabapentin (NEURONTIN) 100 MG capsule Take by mouth 1 (one) time each day 024 Active repaglinide (PRANDIN) 0.5 MG tablet Take 0.5 mg by mouth in the morning and 0.5 mg at noon and 0.5 mg in the evening. Take before meals. Active magnesium oxide 400 (240 Mg) MG tablet TAKE 1 TABLET BY MOUTH EVERY DAY IN THE MORNING 90 tablet 3 024 Active simvastatin (ZOCOR) 20 MG tablet Take 1 tablet (20 mg total) by mouth 1 (one) time each day 30 tablet 11 025 2025 Active tacrolimus (PROGRAF) 1 MG capsuleIndications:S tage 3b chronic kidney disease (HCC),History of immunosuppressive therapy,History of renal transplant Take 7 capsules (7 mg total) by mouth in the morning and 7 capsules (7 mg total) in the evening. 420 capsule 11 025 2025 Active Trulicity 0.75 MG/0.5ML solution auto-injector INJECT 0.75 MG (0.5 ML) SUBCUTANEOUSLY WEEKLY Active Lancets (freestyle) lancets Use as instructed 100 each 3 Active FREESTYLE LITE test strip 1 each by Other route in the morning and 1 each at noon and 1 each in the evening. Use as instructed. 270 each 3 025 2025 Active glucose blood test strip Accu-check brand- test 3x a day; use with accu-check meter 300 each 12 025 2025 Active Blood Glucose Monitoring Suppl (Accu-Chek Guide Me) w/Device kit 1 Device in the morning and 1 Device at noon and 1 Device in the evening. 1 kit Active Active Problems Problem Noted Date Diagnosed Date [...] Encounters Date Type Department Care Team Description 10/25/2025 Orders Only [facility] [address] [place] [address] Viji Soto, RN 10/23/2025 Refill [facility] [address] [place] [address] John Dodd MD 10/06/2025 1:45 PM EST Clinical Support [facility] [address] [place] [address] Terese Garza FNP-C History of immunosuppressive therapy (Primary Dx); History of renal transplant; Type 2 diabetes mellitus with diabetic chronic kidney disease, with long-term use of insulin (HCC); Chronic kidney disease stage 3A (HCC) 10/06/2025 Refill [facility] [place] [address] [place] [address] John Dodd MD 09/27/2025 Orders Only [facility] [address] [place] [address] Jesica Lemus MA Stage 3b chronic kidney disease (HCC) (Primary Dx); History of immunosuppressive therapy; History of renal transplant; Type 2 diabetes mellitus with diabetic chronic kidney disease, not otherwise specified (HCC); Persistent proteinuria; Hyperlipidemia, not otherwise specified; Poor glycemic control; Other specified hypoparathyroidism (HCC); Albuminuria, not otherwise specified 08/12/2025 Telephone [facility] [address] [place] [address] Viji Soto RN 08/11/2025 1:45 PM EDT Clinical Support [facility] [address] [place] [address] Terese Garza FNP-C History of renal transplant (Primary Dx); History of immunosuppressive therapy; Stage 3b chronic kidney disease (HCC) from Last 3 Months Immunizations Immunization Administration [...] Sign Reading Time Taken Comments Blood Pressure 128/70 10/06/2025 1:34 PM EST Pulse 77 10/26/2019 12:00 PM EST Temperature - - Respiratory Rate 16 10/26/2019 12:00 PM EST Oxygen Saturation - - Inhaled Oxygen Concentration - - Weight 64.9 kg (143 lb) 10/06/2025 1:34 PM EST Height 188 cm (6' 2 ) 10/15/2024 8:49 AM EST Body Mass Index 18.36 10/15/2024 8:49 AM EST Plan of Treatment Upcoming Encounters Date Type Department Care Team (Late st Contact Info) Description 12/08/2025 4:15 PM EST Clinical Support [facility] [address] [place] [id number] Terese Garza, [employer] WORK[employer]-C [address] [place] [address] Health Maintenance Due Date Last Done Comments Pneumococcal Vaccine: 50+ Years (3 of 3 - PCV20 or PCV21) 12/01/2018 09/01/2017, 12/01/2013 Diabetes: Ophthalmology Exam 01/04/2020 Diabetes: Pedal Pulse Checked 01/04/2020 Diabetes: Sensory Foot Exam 01/04/2020 Diabetes: Visual Foot Exam 01/04/2020 Colonoscopy (Post-Transplant Patient) 07/12/2020 Influenza Vaccine (#1) 2025 08/21/2020, 2013 Diabetes: Hemoglobin A1C 12/29/2025 025, 08/05/2025, 06/08/2024, Additional history exists Pneumococcal Vaccine: Peds (0 to 5 Years) and At-Risk Patients (6 to 49 Years) Discontinued 09/01/2017, 12/01/2013 Hepatitis B Vaccine Aged Out No longe r eligible based on patient's age to complete this topic Procedures Procedure Name Priority Date/Time Associated Diagnosis Comments URINALYSIS, COMPLETE Routine 09/28/2025 7:42 AM EDT Stage 3b chronic kidney disease (HCC) History of immunosuppressive therapy History of renal transplant Type 2 diabetes mellitus with diabetic chronic kidney disease, not otherwise specified (HCC) Persistent proteinuria Hyperlipidemia, not otherwise specified Poor glycemic control Other specified hypoparathyroidism (HCC) Albuminuria, not otherwise specified URINE ALBUMIN / CREATININE RATIO Routine 09/28/2025 7:42 AM EDT Stage 3b chronic kidney disease (HCC) History of immunosuppressive therapy History of renal transplant Type 2 diabetes mellitus with diabetic chronic kidney disease, not otherwise specified (HCC) Persistent proteinuria Hyperlipidemia, not otherwise specified Poor glycemic control Other specified hypoparathyroidism (HCC) Albuminuria, not otherwise specified PTH, INTACT Routine 09/28/2025 7:42 AM EDT Stage 3b chronic kidney disease (HCC) History of immunosuppressive therapy History of renal transplant Type 2 diabetes mellitus with diabetic chronic kidney disease, not otherwise specified (HCC) Persistent proteinuria Hyperlipidemia, not otherwise specified Poor glycemic control Other specified hypoparathyroidism (HCC) Albuminuria, not otherwise specified IRON PANEL (FE, TIBC, TSAT) Routine 09/28/2025 7:42 AM EDT Stage 3b chronic kidney disease (HCC) History of immunosuppressive therapy History of renal transplant Type 2 diabetes mellitus with diabetic chronic kidney disease, not otherwise specified (HCC) Persistent proteinuria Hyperlipidemia, not otherwise specified Poor glycemic control Other specified hypoparathyroidism (HCC) Albuminuria, not otherwise specified FERRITIN Routine 09/28/2025 7:42 AM EDT Stage 3b chronic kidney disease (HCC) History of immunosuppressive therapy History of renal transplant Type 2 diabetes mellitus with diabetic chronic kidney disease, not otherwise specified (HCC) Persistent proteinuria Hyperlipidemia, not otherwise specified Poor glycemic control Other specified hypoparathyroidism (HCC) Albuminuria, not otherwise specified CREATINE KINASE Routine 09/28/2025 7:42 AM EDT Stage 3b chronic kidney disease (HCC) History of immunosuppressive therapy History of renal transplant Type 2 diabetes mellitus with diabetic chronic kidney disease, not otherwise specified (HCC) Persistent proteinuria Hyperlipidemia, not otherwise specified Poor glycemic control Other specified hypoparathyroidism (HCC) Albuminuria, not otherwise specified ALT Routine 09/28/2025 7:42 AM EDT Stage 3b chronic kidney disease (HCC) History of immunosuppressive therapy History of renal transplant Type 2 diabetes mellitus with diabetic chronic kidney disease, not otherwise specified (HCC) Persistent proteinuria Hyperlipidemia, not otherwise specified Poor glycemic control Other specified hypoparathyroidism (HCC) Albuminuria, not otherwise specified AST Routine 09/28/2025 7:42 AM EDT Stage 3b chronic kidney disease (HCC) History of immunosuppressive therapy History of renal transplant Type 2 diabetes mellitus with diabetic chronic kidney disease, not otherwise specified (HCC) Persistent proteinuria Hyperlipidemia, not otherwise specified Poor glycemic control Other specified hypoparathyroidism (HCC) Albuminuria, not otherwise specified HEMOGLOBIN A1C Routine 09/28/2025 7:42 AM EDT Stage 3b chronic kidney disease (HCC) History of immunosuppressive therapy History of renal transplant Type 2 diabetes mellitus with diabetic chronic kidney disease, not otherwise specified (HCC) Persistent proteinuria Hyperlipidemia, not otherwise specified Poor glycemic control Other specified hypoparathyroidism (HCC) Albuminuria, not otherwise specified MAGNESIUM Routine 09/28/2025 7:42 AM EDT Stage 3b chronic kidney disease (HCC) History of immunosuppressive therapy History of renal transplant Type 2 diabetes mellitus with diabetic chronic kidney disease, not otherwise specified (HCC) Persistent proteinuria Hyperlipidemia, not otherwise specified Poor glycemic control Other specified hypoparathyroidism (HCC) Albuminuria, not otherwise specified CBC AND DIFFERENTIAL Routine 09/28/2025 7:42 AM EDT Stage 3b chronic kidney disease (HCC) History of immunosuppressive therapy History of renal transplant Type 2 diabetes mellitus with diabetic chronic kidney disease, not otherwise specified (HCC) Persistent proteinuria Hyperlipidemia, not otherwise specified Poor glycemic control Other specified hypoparathyroidism (HCC) Albuminuria, not otherwise specified RENAL FUNCTION PANEL Routine 09/28/2025 7:42 AM EDT Stage 3b chronic kidney disease (HCC) History of immunosuppressive therapy History of renal transplant Type 2 diabetes mellitus with diabetic chronic kidney disease, not otherwise specified (HCC) Persistent proteinuria Hyperlipidemia, not otherwise specified Poor glycemic control Other specified hypoparathyroidism (HCC) Albuminuria, not otherwise specified TACROLIMUS, HIGHLY SENSITIVE, LC/MS/MS Routine 09/28/2025 7:42 AM EDT Stage 3b chronic kidney disease (HCC) History of immunosuppressive therapy History of renal transplant Type 2 diabetes mellitus with diabetic chronic kidney disease, not otherwise specified (HCC) Persistent proteinuria Hyperlipidemia, not otherwise specified Poor glycemic control Other specified hypoparathyroidism (HCC) Albuminuria, not otherwise specified MICROSCOPIC EXAMINATION - DO NOT USE Routine 09/28/2025 7:42 AM EDT RENAL FUNCTION PANEL Routine 08/29/2025 7:45 AM EDT Stage 3b chronic kidney disease (HCC) History of immunosuppressive therapy History of renal transplant TACROLIMUS, HIGHLY SENSITIVE, LC/MS/MS Routine 08/29/2025 7:45 AM EDT Stage 3b chronic kidney disease (HCC) History of immunosuppressive therapy History of renal transplant from Last 3 Months Results * Tacrolimus, Highly Sensitive, LC/MS/MS (09/28/2025 7:42 AM EDT) Only the most recent of2 resultswithin the time period is included. Pathologist [facility] Tacrolimus by Immunoassay 7.6 5.0 - 20.0 ng/mL [facility] Comment: Detection Limit = 0.8 ng/mL Target [...] recommended. Tacrolimus assay performed by [facility] [employer]. 09/28/2025 7:42 AM EDT 09/28/2025 us John Dodd MD LAB BLOOD ORDERABLES Final Result [facility] [address] [place] [address] * (ABNORMAL) Urinalysis, Complete w/reflex to Culture (09/28/2025 7:42 AM EDT) Specific [place], Urine 1.023 1.005 - 1.030 [facility] pH Urine 5.5 5.0 - 7.5 [facility] [phone] Color, Urine Yellow Yellow [facility] Appearance Urine Clear Clear [facility] WBC Esterase Urine Negative Negative [facility] Protein, Ur 3+(A) Negative/Tra ce [facility] Glucose, Ur 3+(A) Negative [facility] Ketones, Urine Negative Negative [facility] [phone] Blood Urine Trace(A) Negative [facility] Bilirubin Urine Negative Negative [facility] Urobilinogen Urine 0.2 0.2 - 1.0 mg/dL [facility] [phone] Nitrite, Urine Negative Negative [facility] Microscopic Examination See below: [facility] Comment:Microscopic was su cated and was performed. URINALYSIS REFLEX Comment [facility] [phone] Comment:This specimen will n ot reflex to a Urine Culture. Urine Urine specimen obtained by clean catch procedure / Unknown 09/28/2025 7:42 AM EDT 09/28/2025 us John Dodd MD LAB URINE ORDERABLES Final Result [facility] [address] [place] [address] * Microscopic Examination (09/28/2025 7:42 AM EDT) WBC, Urine None seen 0 - 5 /hpf [facility] RBC, Urine 0-2 0 - 2 /hpf [facility] Squamous Epithelial, Urine 0-10 0 - 10 /hpf [facility] Casts None seen None seen /lpf [facility] Bacteria, Urine None seen None seen/Few [facility] 09/28/2025 7:42 AM EDT 09/28/2025 John Dodd MD LAB MICROBIOLOGY - GENERAL ORDERABLES Final Result Performing Organization Address City/[facility]/ZIP Co de Phone Number [facility] [address] [place] [address] * (ABNORMAL) Iron Panel (Fe, TIBC, TSAT) (09/28/2025 7:42 AM EDT) TIBC 242(L) 250 - 450 ug/dL [facility] UIBC 185 111 - 343 ug/dL [facility] Iron 57 38 - 169 ug/dL [facility] Iron Saturation (TSat) 24 15 - 55 % [facility] Blood Venous blood / Unknown 09/28/2025 7:42 AM EDT 09/28/2025 John Dodd MD LAB BLOOD ORDERABLES Final Result [facility] [address] [place] [address] * (ABNORMAL) Urine Albumin / Creatinine Ratio (09/28/2025 7:42 AM EDT) Creatinine, Ur 116.8 Not Estab. mg/dL [facility] Albumin, Urine 1,124.3 Not Estab. ug/mL [facility] Comment: Results confirmed on dilution. Albumin/Creatin ine Ratio 963(H) 0 - 29 mg/g creat [facility] Comment: Normal: 0 - 29 Moderately increased: 30 - 300 Severely increased: >300 Urine Urine specimen obtained by clean catch procedure / Unknown 09/28/2025 7:42 AM EDT 09/28/2025 us John Dodd MD LAB URINE ORDERABLES Final Result [facility] [address] [place] [address] * (ABNORMAL) CBC and Differential (09/28/2025 7:42 AM EDT) WBC 7.2 3.4 - 10.8 x10E3/uL [facility] RBC 4.13(L) 4.14 - 5.80 x10E6/uL [facility] Hemoglobin 13.0 13.0 - 17.7 g/dL [facility] Hematocrit 39.6 37.5 - 51.0 % [facility] MCV 96 79 - 97 fL [facility] MCH 31.5 26.6 - 33.0 pg [facility] MCHC 32.8 31.5 - 35.7 g/dL [facility] RDW 13.7 11.6 - 15.4 % [facility] Platelets 147(L) 150 - 450 x10E3/uL [facility] Neutrophils Relative 81 Not Estab. % [facility] Lymphocytes Relative 10 Not Estab. % [facility] Monocytes 8 Not Estab. % [facility] Eosinophils Relative 1 Not Estab. % [facility] Basophils Relative 0 Not Estab. % [facility] Neutrophils Absolute 5.8 1.4 - 7.0 x10E3/uL [facility] Lymphocytes Absolute 0.7 0.7 - 3.1 x10E3/uL [facility] Monocytes Absolute 0.6 0.1 - 0.9 x10E3/uL [facility] Eosinophils Absolute 0.1 0.0 - 0.4 x10E3/uL [facility] Basophils Absolute 0.0 0.0 - 0.2 x10E3/uL [facility] Immature Granulocytes 0 Not Estab. % [facility] Immature Grans (Absolute) 0.0 0.0 - 0.1 x10E3/uL [facility] Blood Venous blood / Unknown 09/28/2025 7:42 AM EDT 09/28/2025 John Dodd MD LAB BLOOD ORDERABLES Final Result [facility] [address] [place] [address] * ALT (09/28/2025 7:42 AM EDT) ALT (SGPT) 11 0 - 44 IU/L [facility] Blood Venous blood / Unknown 09/28/2025 7:42 AM EDT 09/28/2025 John Dodd MD LAB BLOOD ORDERABLES Final Result [facility] [address] [place] [address] * AST (09/28/2025 7:42 AM EDT) AST (SGOT) 10 0 - 40 IU/L [facility] Blood Venous blood / Unknown 09/28/2025 7:42 AM EDT 09/28/2025 John Dodd MD LAB BLOOD ORDERABLES Final Result [facility] [address] [place] [address] * PTH, Intact (09/28/2025 7:42 AM EDT) Pathologist [facility] PTH 41 15 - 65 pg/mL [facility] Blood Venous blood / Unknown 09/28/2025 7:42 AM EDT 09/28/2025 John Dodd MD LAB BLOOD ORDERABLES Final Result Performing Organization Address City/[facility]/ZIP Co de Phone Number [facility] [address] [place] [address] * Magnesium (09/28/2025 7:42 AM EDT) Pathologist [facility] Magnesium 1.8 1.6 - 2.3 mg/dL [facility] Blood Venous blood / Unknown 09/28/2025 7:42 AM EDT 09/28/2025 John Dodd MD LAB BLOOD ORDERABLES Final Result Performing Organization Address City/[facility] Co de Phone Number [facility] [address] [place] [address] * (ABNORMAL) Hemoglobin A1c (09/28/2025 7:42 AM EDT) Hemoglobin A1C 7.3(H) 4.8 - 5.6 % [facility] Comment: Prediabetes: 5.7 - 6.4 Diabetes: >6.4 Glycemic control for adults with diabetes: <7.0 Blood Venous blood / Unknown 09/28/2025 7:42 AM EDT 09/28/2025 John Dodd MD LAB BLOOD ORDERABLES Final Result [facility] [address] [place] [address] * Ferritin (09/28/2025 7:42 AM EDT) Ferritin 254 30 - 400 ng/mL [facility] Blood Venous blood / Unknown 09/28/2025 7:42 AM EDT 09/28/2025 John Dodd MD LAB BLOOD ORDERABLES Final Result Performing Organization Address [facility] Co de Phone Number [facility] [address] [place] [address] * CK (09/28/2025 7:42 AM EDT) Creatine Kinase (CK/CPK) 56 41 - 331 U/L [facility] Blood Venous blood / Unknown 09/28/2025 7:42 AM EDT 09/28/2025 John Ddod MD LAB BLOOD ORDERABLES Final Result Performing Organization Address City/[facility] Co de Phone Number [facility] [address] [place] [address] * (ABNORMAL) Renal Function Panel (09/28/2025 7:42 AM EDT) Only the most recent of2 resultswithin the time period is included. Pathologist [facility] Glucose 221(H) 70 - 99 mg/dL [facility] BUN 31(H) 8 - 27 mg/dL [facility] Creatinine 1.27 0.76 - 1.27 mg/dL [facility] eGFR CKD-EPI CR 2020 63 >59 mL/min/1.7 3 [facility] BUN/Creatinine Ratio 24 10 - 24 [facility] Sodium 141 134 - 144 mmol/L [facility] Potassium 4.5 3.5 - 5.2 mmol/L [facility] Chloride 106 96 - 106 mmol/L [facility] Bicarbonate (CO2) 23 20 - 29 mmol/L [facility] Calcium 9.7 8.6 - 10.2 mg/dL [facility] Albumin 3.6(L) 3.9 - 4.9 g/dL [facility] Phosphorus 2.2(L) 2.8 - 4.1 mg/dL [facility] Blood Venous blood / Unknown 09/28/2025 7:42 AM EDT 09/28/2025 us John Dodd MD LAB BLOOD ORDERABLES Final Result [facility] [address] [place] [address] from Last 3 Months Insurance [employer] Medicare Care Teams Er Registrar Relationship Specialty Start Date End Date Carla Burns MD [facility] [place] [id number] [place], [place] PCP - General Internal Medicine 10/29/21
[2025-11-10 06:24] LABS: MANUAL DIFF FLAG NO
[2025-11-10 07:15] LABS: Hematocrit 39.3 % (42.0-52.0); Hemoglobin 12.9 g/dl (14.0-18.0); Imm Gran Abs Auto 0.02 X10*3/uL (0.00-0.03); Imm Gran Pct Auto 0.3 % (0.0-0.4); Lymphocytes Absolute Auto 1.1 X10*3/uL (1.2-4.9); Mean Corpuscular HGB Conc 32.8 g/dl (31.0-36.0); Mean Corpuscular Hemoglobin 30.9 pg (27.0-33.0); Mean Corpuscular Volume 94.2 fL (80.0-98.0); NRBC Abs Auto 0.000 X10*3/uL (0.0-0.012); NRBC Pct Auto 0.0 /100WBC (0.0-0.2); Platelet Count 143 X10*3/uL (160-400); Red Blood Count 4.17 X10*6/uL (4.60-5.80); Reticulocytes Absolute 0.044 X10*6/uL (0.026-0.095); White Blood Count 6.8 X10*3/uL (4.8-10.8)
[2025-11-10 08:03] LABS: Alanine Aminotransferase 11 U/L (0-40); Albumin Level 3.7 g/dL (3.5-5.0); Alkaline Phosphatase 105 U/L (39-117); Anion Gap 11 (12-20); Aspartate Amino Transferase 19 U/L (5-37); Blood Urea Nitrogen 27 mg/dL (9-16); Calcium 10.4 mg/dL (8.4-10.2); Carbon Dioxide 28 mmol/L (22-29); Chloride 107 mmol/L (96-108); Estimated Glomerular Filt Rate 52; Iron 87 mcg/dL (45-160); Percent Iron Saturation 38 % (15-50); Potassium 4.5 mmol/L (3.3-5.1); Sodium 141 mmol/L (135-145); Total Iron Binding Capacity 228 mcg/dL (228-428); Total Protein 6.9 g/dL (6.5-8.0); Unsaturated Iron Binding 141 ug/dL
[2025-11-10 08:21] LABS: Ferritin 275 ng/mL (20-250)
[2025-11-10 08:27] LABS: Folate 7.9 ng/mL (> or = 4.0); Vitamin B12 264 pg/mL (200-900)
== END 2025-11-10 06:06 ==
LOC: HO.LAB 06:05
PROVIDERS: PCP Internal Medicine; Visit Provider Internal Medicine
DX: Z13.1 Encounter for screening for diabetes mellitus (principal); N18.31 Chronic kidney disease, stage 3a; D63.1 Anemia in chronic kidney disease; E83.52 Hypercalcemia
CPT/HCPCS: 36415; 80053; 82607; 82728; 82746; 83036; 83540; 85025; 85045

== ENCOUNTER 2025-11-18 10:45 | Outpatient (AMB) | payer MEDICARE, SELFPAY ==
[2025-11-18 10:51] VITALS: BP 128/66; PULSE 71; TEMP 36.2; O2SAT 99; BMI 18.2
--- NOTE | 2025-11-18 10:51 | A.OFFPC_ITS ---
Vital Signs 11/18/25 10:51 Height 6 ft 2 in Weight 142 lb BMI 18.2 BP 128/66 Blood Pressure Location Rt brachial Position Sitting Pulse 71 Pulse Source Pulse Oximeter Temp 97.1 F Temp Source Temporal Artery Scan Pulse Oximetry (%) 99 Oxygen Delivery Method Room Air Intake Visit Reasons: annual exam Recreation Teacher Required: No Accompanied by: Self / Same As Patient Allergies No Known Allergies Allergy (Verified 11/18/25 10:51) Medication List - Last Reconciled 11/18/25 by Carla Burns MD blood sugar diagnostic (FreeStyle Lite Strips) As directed three times a day blood sugar diagnostic As directed dulaglutide (Trulicity) 0.75 mg (0.5 mL) subcut QWEEK empagliflozin (Jardiance) 25 mg PO DAILY gabapentin 100 mg PO DAILY 90 days hydrocortisone 2.5% (Proctosol HC) 1 appl SD BID-QID PRN lancets (FreeStyle Lancets) Once a day lancets As directed lisinopril 30 mg PO DAILY 90 days magnesium oxide 400 mg PO QAM repaglinide 0.5 mg PO TID 30 days simvastatin 20 mg PO DAILY tacrolimus XR (Envarsus XR) 8 mg PO DAILY Tobacco use date assessed: 11/18/25 Fall risk assessment: No Falls in past year Last assessed Fall Risk: 11/18/25 Dental Screening Dental Screen Date: 11/18/25 Did you have a dental visit in the last 12 months?: No Did you have a dental problem in the last 6 months where you did not have access to dental care?: No HPI HPI Comments History of Present Illness Details History of Present Illness The patient is a 65-year-old male presenting for an annual well visit. His past medical history is significant for diabetes mellitus, hypertension, hypercholesterolemia, COPD, polycystic kidney disease, chronic kidney disease, anemia, and mild thrombocytopenia. He has a history of a kidney transplant in 2012 for polycystic kidney disease and currently has chronic kidney disease. He is on tacrolimus for the transplant. A blood test on November 10 showed a creatinine of 1.37, which is an improvement. His diabetes is managed with Trulicity 0.75 mg weekly, Jardiance 25 mg daily, and repaglinide 0.5 mg three times a day. A recent hemoglobin A1c was elevated at 7.7% and blood sugar was 217. He has anemia with a hemoglobin of 12.9 and hematocrit of 39.3, believed to be anemia of chronic disease, and a low vitamin B12 level of 264. He also has stable mild thrombocytopenia. His last cholesterol test in March 2025 showed an LDL of 62. For health maintenance, his last colonoscopy in August 2025 showed internal hemorrhoids and is due for repeat in 3-4 years. He had an eye exam last year and is scheduled for another next summer, with no bleeding reported in the back of the eye. He is up to date on his vaccinations, including flu, shingles, tetanus, and pneumonia shots. Health Maintenance A refill for magnesium was provided. The patient confirmed he is up to date on all vaccinations, including flu, tetanus, shingles, and pneumonia. He will follow up in three months for a visit and will have lab work done prior to the appointment. Social History - Alcohol: Denies alcohol use. - Tobacco: Smokes one cigarette every tw o or three weeks. - Illicit Drugs: Denies marijuana use, s tates he has quit. Results - Labs (November 10): - Hemoglobin: 12.9 g/dL and Hematocrit: 39.3%. - Platelets: Mildly low (thrombocytopeni a). - Electrolytes: Normal. - Creatinine: 1.37 mg/dL. - Blood Glucose: 217 mg/dL. - Hemoglobin A1c: 7.7%. - Liver function tests: Normal. - Vitamin B12: 264 pg/mL (low). - Labs (March 2025): - LDL Cholesterol: 62 mg/dL. - Procedures: - Colonoscopy (August 2025): Showed i nternal hemorrhoids. COUNTS INCLUDE 234 BEDS AT THE [facility] Medical History Tubular adenoma of colon Diabetes type 2, uncontrolled Positive TB test Lumbar degenerative disc disease COPD (chronic obstructive pulmonary disease) Diabetic nephropathy associated with type 2 diabetes mellitus Hypercalcemia Hypertension Dyslipidemia Diabetic polyneuropathy associated with type 2 diabetes mellitus Diabetes type 2, controlled Surgical History Hx of colonoscopy Hx of kidney transplant Hx of umbilical hernia repair Family History Father Type 2 diabetes mellitus Kidney disease Mother Polycystic kidney disease Son No problems noted. Daughter No problems noted. Brother No problems noted. Brother No problems noted. Brother No problems noted. Brother Pancreatic cancer Brother No problems noted. Social History (Updated 11/18/25 @ 11:21 by Carla Burns MD) Household Members: Significant Other Housing: Apartment Alcohol intake: former Comment: stopped already Patient Tobacco Use Status: Current everyday Tobacco user Tobacco use type: Cigarette Cigarettes Per Day: 1 Years Smoked: 1 Q 2 to 3 weeks, quit marijuana e-Cigarette/Vaping Use: Never Used Second Hand Smoke Exposure: Yes Substance Use Type: Marijuana service: No Current occupational status: employed Cognitive needs: No Hearing needs: No Vision needs: No Questionnaire Thrive Questionnaire Date Thrive assessed: 07/29/25 I am a: Patient What is your living situation today?: I have a steady place to live Within the past 12 months, did the food you bought not last and you didn't have the money to get more?: I choose not to answer this question Within the past 12 months, did you worry whether your food would run out before you got money to buy more?: Never true Do you have trouble paying for medicines?: No Do you have trouble getting transportation to medical appointments?: No Do you have trouble paying your heating and electricity bill?: No Do you have trouble taking care of your child, family member or friend?: No Do you have trouble with day-to-day activities such as bathing, preparing meals, shopping, managing finances, etc.?: No Are you currently unemployed and looking for a job?: No Are you interested in more education?: No Currently or been in a relationship where the following occur: I choose not to answer THRIVE Score: 0 JACOBY-7 AMB Questionnaire JACOBY-7 Date JACOBY - 7 assessed: 12/28/24 Source: Developed by Drs. Mikhail Estes, Tina Lemos, Alec Pascual and colleagues, with an educational nallely from [employer]. Review of Systems Narrative Review of Systems - General: Denies syncope, dizziness, nausea, vomiting, and fever. - HEENT: Reports hearing is good so far. Denies difficulty swallowing. - Cardiovascular: Denies waking up short of breath, chest pain, and chest heaviness. - Gastrointestinal: Denies heartburn and problems with bowel movements. - Genitourinary: Reports nocturia two to three times per night. Denies other urinary problems. Const Denies poor appetite and Denies weakness Eyes Denies no additional complaints ENT Reports Normal hearing present, Denies dizziness, Denies nasal congestion, Denies tinnitus and Denies sore throat Card Denies chest pain, Denies syncope, Denies rapid heart rate and Denies dyspnea Resp Denies cough and Denies dyspnea GI Denies change in stool character, Reports constipation, Denies diarrhea, Denies nausea and Denies vomiting Denies dysuria and Denies urinary frequency Neuro Reports Normal hearing present, Denies confusion, Denies dizziness, Denies syncope and Denies weakness Psych Denies confusion Physical exam (Primary Care) Vital Signs: Last Vital Signs Temp 97.1 F 11/18/25 10:51 Pulse 71 11/18/25 10:51 BP 128/66 11/18/25 10:51 Pulse Ox 99 11/18/25 10:51 Oxygen Delivery Method Room Air 11/18/25 10:51 BMI result Body Mass Index 18.2 Tobacco/Smoking Status: Tobacco use Status Tobacco use date assessed 11/18/25 11/18/25 10:52 Patient Tobacco Use Status Current everyday Tobacco 11/18/25 11:21 Tobacco use type Cigarette 11/18/25 11:21 e-Cigarette/Vaping Use Never Used 11/18/25 11:21 Thrive Assessment: Date of Thrive Assessment Date Thrive assessed 07/29/25 11/18/25 10:52 Currently or been in a relationship where the following occur: I choose not to answer Narrative Physical Exam General: Cooperative, healthy appearing, comfortable, no acute distress and well developed Orientation: Patient oriented x3 Limitations: No limitations Head: Normal to inspection Ears: Hearing grossly normal bilaterally, but a lot of ear wax present Nose: Normal external nose present Face and sinus: Normal facial exam Eyes: Appearance normal, both eyes and all related structures Neck: Normal visual inspection and Yes full ROM Respiratory: Normal respiratory effort and able to speak in complete sentences. Clear to auscultation bilaterally Cardiovascular: Regular rate and rhythm. Normal S1 and S2 GI: Normal to inspection. Soft to palpation and nontender Skin: No rashes or lesions noted Neuro: Patient oriented x3 Extremities: Normal to inspection Const General: No confusion Orientation/consciousness: No confusion HENMT Head: Yes normocephalic Ears: external ears normal and TM's normal bilaterally Face and sinus: Yes normal facial exam Mouth: moist mucous membranes Throat: Yes tonsils normal Eyes Conjunctivae: conjunctivae normal Pupils: Equal, round and reactive pupils present and Pupil accommodation reflex normal Direct Ophthalmoscopy: normal light reflex Neck Neck: No lymphadenopathy Thyroid: Thyroid normal Chest Chest palpation & inspection: normal inspection of the chest Resp Effort & Inspection: normal respiratory effort and no audible wheezes Auscultation: clear to auscultation bilaterally, no crackles, no wheezes and lung sounds not diminished Cardio Rate: regular rate Rhythm: regular rhythm Peripheral pulses: radial pulses present and dorsalis pedis present GI Other: recent colon test Palpation (GI): no masses Auscultation: normal bowel sounds and normoactive bowel sounds Rectal Exam - Male: Yes deferred Skin General skin exam: no rashes or lesions noted Rashes: no rashes Neuro General: No confusion Cranial nerves: Yes Equal, round and reactive pupils present and Yes Normal hearing present Cognition (Neuro): normal cognition Gait exam (Neuro): Normal gait present Motor exam (neuro): 5/5 motor strength present throughout Deep tendon reflexes (DTR's): Right brachioradialis reflex intensity grade: 2+, Left brachioradialis reflex intensity grade: 2+, Right patellar reflex intensity grade: 2+ and Left patellar reflex intensity grade: 2+ Extrem General: No edema Coding Level of Care Code Est Pt Prev Care >65y(33067) Diagnoses Annual physical exam Z00.00 Type 2 diabetes mellitus with hyperglycemia, without long-term current use of insulin E11.65 Diabetes mellitus long term care pharmacist insulin use: without fdc use Essential hypertension I10 Hypertension type: essential hypertension Dyslipidemia E78.5 Hx of kidney transplant Z94.0 Stage 3a chronic kidney disease N18.31 Chronic kidney disease stage 3 subtype: stage 3a (GFR 45-59) Pulmonary emphysema, unspecified emphysema type J43.9 COPD type: emphysema Emphysema type: unspecified Assessment & Plan Assessment & Plan (1) Annual physical exam: Code(s): Z00.00 - Encounter for general adult medical examination without abnormal findings Category: Medical Plan: Patient is advised to eat healthy, keep well hydrated, keep active and have adequate sleep. (2) Type 2 diabetes mellitus with hyperglycemia: Comment: Dr. Diego Code(s): E11.65 - Type 2 diabetes mellitus with hyperglycemia Category: Medical Qualifiers: Diabetes mellitus fdc insulin use: without fdc use Qualified Code(s): E11.65 - Type 2 diabetes mellitus with hyperglycemia Plan: Decrease the amount of carbohydrate intake, pasta, bread, rice and potatoes are all sugar and that is aside from all the sweet stuff, remember that fruits are good but they are Sweet also. Hemoglobin A1c goal of less than 7.0 patient is on Trulicity at 0.75 once a week Jardiance 25 mg once a day repaglinide 0.5 mg 3 times a day (3) Hypertension: Code(s): I10 - Essential (primary) hypertension Category: Medical Qualifiers: Hypertension type: essential hypertension Qualified Code(s): I10 - Essential (primary) hypertension Plan: Continue with blood pressure medication. Decrease salt intake and exercise (4) Dyslipidemia: Code(s): E78.5 - Hyperlipidemia, unspecified Category: Medical Plan: Avoid fried foods, chicken skin, eggs, butter margarine, pastries and meat. Be it pork or beef they have a lot of cholesterol LDL goal of less than 100 and triglyceride of less than 150 (5) Hx of kidney transplant: Comment: Polycystic kidney disease, December 2013 renal transplant [facility] Code(s): Z94.0 - Kidney transplant status Category: Surgical Plan: Continue to follow-up with renal (6) CKD (chronic kidney disease) stage 3, GFR 30-59 ml/min: Code(s): N18.30 - Chronic kidney disease, stage 3 unspecified Category: Medical Qualifiers: Chronic kidney disease stage 3 subtype: stage 3a (GFR 45-59) Qualified Code(s): N18.31 - Chronic kidney disease, stage 3a Plan: Keep well hydrated avoid NSAIDs continue to follow-up with renal (7) COPD (chronic obstructive pulmonary disease): Code(s): J44.9 - Chronic obstructive pulmonary disease, unspecified Category: Medical Qualifiers: COPD type: emphysema Emphysema type: unspecified Qualified Code(s): J43.9 - Emphysema, unspecified Plan: Stable Plan Plan Patient was informed and verbally consented to the use of an ambient scribe for clinic note documentation during this visit. 1. Diabetes Mellitus The patient's diabetes is not well-controlled, with a recent hemoglobin A1c of 7.7%, above the goal of less than 7.0%. To improve glycemic control and avoid initiating insulin, the dose of Trulicity will be increased from 0.75 mg to 1.5 mg weekly. He will continue his other diabetes medications, including Jardiance and repaglinide. 2. Anemia And Vitamin B12 Deficiency The patient has a mild anemia (Hgb 12.9) likely secondary to chronic disease, specifically his history of renal transplant and chronic kidney disease. Labs also revealed a low vitamin B12 level of 264. He will continue taking his [id number] B12 supplement. A repeat CBC and B12 level will be checked in three months. If the B12 level remains low on follow-up, a prescription for B12 supplementation will be provided. 3. Chronic Kidney Disease His chronic kidney disease, status post-renal transplant, is stable, with an imp roved creatinine of 1.37. He is advised to continue following up with his fish frog or oyster farmer, maintain good hydration, and avoid NSAIDs. 4. Hypercholesterolemia His hypercholesterolemia is well-managed on simvastatin 20 mg, with a recent LDL of 62, meeting the goal of <100. His lipid panel will be rechecked next year. Discussion Notes I have discussed with the patient the concern that his blood sugar is not well controlled, as evidenced by his A1c of 7.7%. We discussed that the next step could be insulin, which he would like to avoid. Therefore, I recommended increasing his Trulicity dose from 0.75 mg to 1.5 mg weekly to help lower his blood sugars. We also reviewed his lab work, noting the mild anemia and low vitamin B12 level. I advised him to continue his current B12 supplement and that we will recheck his levels in three months. I explained that if it remains low, I would provide a prescription for B12. I advised him on the importance of staying hydrated and avoiding NSAIDs for his kidney health, and to continue his follow-up with nephrology. A follow-up visit is scheduled in three months, with repeat lab work to be completed beforehand. Patient Instructions - Increase your Trulicity dose to 1.5 mg once a week as prescribed. - Continue taking all your other medications as directed, including your [id number] vitamin B12. - A refill for your magnesium has been sent to your pharmacy. - Get your blood work done as requested in about three months, before your next appointment. - Make sure to drink plenty of water and avoid taking anti-inflammatory medications like ibuprofen (Advil, Motrin) or naproxen (Aleve). - Continue to see your kidney specialist (fish frog or oyster farmer) as scheduled. - Follow up here in the office in three months. - Consider wearing a mask in crowded public places to reduce your risk of getting sick, especially during flu season. Orders: Orders Complete Blood Count Auto Diff 3 Months E11.65 - Type 2 diabetes mellitus with hyperglycemia Microalbumin, Random (w Creat) 3 Months E11.65 - Type 2 diabetes mellitus with hyperglycemia Creatinine Urine 3 Months E11.65 - Type 2 diabetes mellitus with hyperglycemia Vitamin B12 and Folate 3 Months E11.65 - Type 2 diabetes mellitus with hyperglycemia Comprehensive Met. Panel 3 Months E11.65 - Type 2 diabetes mellitus with hyperglycemia Free T4 (Free Thyroxine) 3 Months E11. - Type 2 diabetes mellitus with hyperglycemia Thyroid Stimulating Hormone 3 Months E11. - Type 2 diabetes mellitus with hyperglycemia Lipid Panel 3 Months E11.65 - Type 2 diabetes mellitus with hyperglycemia, E78.00 - Pure hypercholesterolemia, unspecified Ferritin 3 Months E11. - Type 2 diabetes mellitus with hyperglycemia IRON PROFILE 3 Months E11. - Type 2 diabetes mellitus with hyperglycemia Reticulocyte Count 3 Months E11. - Type 2 diabetes mellitus with hyperglycemia Prostate Specific Antigen Scr 3 Months E11.65 - Type 2 diabetes mellitus with hyperglycemia UA CC w/rflx Micro + Cult 3 Months E11.65 - Type 2 diabetes mellitus with hyperglycemia, R30.0 - Dysuria Hemoglobin A1c 3 Months E11.65 - Type 2 diabetes mellitus with hyperglycemia Magnesium 3 Months E11.65 - Type 2 diabetes mellitus with hyperglycemia Medications: New magnesium oxide 400 mg PO QAM 90 tabs 1RF Changed From dulaglutide (Trulicity) 0.75 mg (0.5 mL) subcut QWEEK 2 mL 3RF E11.65 - Type 2 diabetes mellitus with hyperglycemia To dulaglutide 1.5 mg (0.5 mL) subcut QWEEK 2 mL 3RF E11.65 - Type 2 diabetes mellitus with hyperglycemia
--- OUTSIDE RECORDS SUMMARY | 2025-11-18 12:30 | XMS_ITS | Encounter Summary ---
Author Organization [facility] Address [address] [place] [address] Phone Care Team Providers Care Assistant Head Cashier Name Role Phone Carla Burns MD Primary Care Provider [phone] Reason for Visit * Reason Comments Med Refill Encounter Details Date Type Department Care Team (Late st Contact Info) Description 01/09/2023 Refill [facility] [address] [place] [address] Virgie Grajeda PA [address] [place] [address] [place] [address] Social History Tobacco Use Types [...] Clinical Support [facility] [address] [place] [address] Terese Garza FNP-C [address] [place] [address] documented as of this encounter Visit Diagnoses Not on filedocumented in this encounter Care Teams Assistant Head Cashier Relationship Specialty Start Date End Date Carla Burns MD [facility] [address] [place] PCP - General Internal Medicine 10/29/21 documented as of this encounter
--- OUTSIDE RECORDS SUMMARY | 2025-11-18 12:30 | XMS_ITS | Encounter Summary ---
Author Organization [facility] Address [address] [place] [address] Phone Care Team Providers Care Motor Vehicle Salesperson Name Role Phone Carla Burns MD Primary Care Provider [phone] Reason for Visit * Reason Comments Med Change Request Encounter Details Date Type Department Care Team (Late Contact Info) Description 10/23/2025 Refill [facility] [address] [place] [address] John Dodd MD [address] [place] [address] [place] [address] Social History Tobacco Use Types [...] Clinical Support [facility] [address] [place] [address] Terese Garza FNP-C [address] [place] [address] [place] [address] documented as of this encounter Visit Diagnoses Not on filedocumented in this encounter Care Teams Motor Vehicle Salesperson Relationship Specialty Start Date End Date Carla Burns MD [facility] [address] [place] PCP - General Internal Medicine 10/29/21 documented as of this encounter
--- OUTSIDE RECORDS SUMMARY | 2025-11-18 12:30 | XMS_ITS | Encounter Summary ---
Author Organization [facility] Address [address] [place] [address] Phone Care Team Providers Care Silk Folder Name Role Phone Carla Burns MD Primary Care Provider [phone] Reason for Visit * Reason Comments Med Refill Encounter Details Date Type Department Care Team (Late st Contact Info) Description 07/15/2023 Refill [facility] [address] [place] [address] Virgie Grajeda PA [address] [place] [address] [place] [address] Social History Tobacco Use Types [...] Clinical Support [facility] [address] [place] [address] Terese Garza FNP-C [address] [place] [address] documented as of this encounter Visit Diagnoses Not on filedocumented in this encounter Care Teams Silk Folder Relationship Specialty Start Date End Date Carla Burns MD [facility] [address] [place] PCP - General Internal Medicine 10/29/21 documented as of this encounter
--- OUTSIDE RECORDS SUMMARY | 2025-11-18 12:31 | XMS_ITS | Clinical Summary ---
Author Organization [facility], Address [address] [place] [address] [place] [address] Phone Care Team Providers Care Manager Mail Name Role Phone Carla Burns MD Primary Care Provider [phone] Allergies No known active allergies Medications lisinopril [...] Only [facility] [place] [address] [place] [address] Viji Soto, RN 10/23/2025 Refill [facility] [place] [address] [place] [address] John Dodd MD 10/06/2025 1:45 PM EST Clinical Support [facility] [place] [address] [place] [address] Terese Garza FNP-C History of immunosuppressive therapy (Primary Dx); History of renal transplant; Type 2 diabetes mellitus with diabetic chronic kidney disease, with long-term use of insulin (HCC); Chronic kidney disease stage 3A (HCC) 10/06/2025 Refill [facility] [address] [place] [address] John Dodd MD 09/27/2025 Orders Only [facility] [address] [place] [address] Jesica Lemus MA Stage 3b chronic kidney disease (HCC) (Primary Dx); History of immunosuppressive therapy; History of renal transplant; Type 2 diabetes mellitus with diabetic chronic kidney disease, not otherwise specified (HCC); Persistent proteinuria; Hyperlipidemia, not otherwise specified; Poor glycemic control; Other specified hypoparathyroidism (HCC); Albuminuria, not otherwise specified from Last 3 Months Immunizations Immunization Administration [...] Support [facility] [address] [place] [phone] Terese Garza, [employer]-C [address] [place] [address] Health Maintenance Due Date Last Done Comments [...] resultswithin the time period is included. Tacrolimus by Immunoassay 7.6 5.0 - 20.0 ng/mL [facility] [place] Comment: Detection Limit = 0.8 ng/mL Target [...] Jacob Immunoassay. 09/28/2025 7:42 AM EDT 09/28/2025 John Dodd MD LAB BLOOD ORDERABLES Final Result [facility] [place] [address] [place] [address] * (ABNORMAL) Urinalysis, Complete w/reflex to Culture (09/28/2025 7:42 AM EDT) Specific [place], Urine 1.023 1.005 - 1.030 [facility] [phone] pH Urine 5.5 5.0 - 7.5 [facility] [phone] Color, Urine Yellow Yellow [facility] [phone] Appearance Urine Clear Clear [facility] [place] [phone] WBC Esterase Urine Negative Negative [facility] Protein, Ur 3+(A) Negative/Tra ce [facility] Glucose, Ur 3+(A) Negative [facility] [phone] Ketones, Urine Negative Negative [facility] [place] Blood Urine Trace(A) Negative [facility] [phone] Bilirubin Urine Negative Negative [facility] [place] Urobilinogen Urine 0.2 0.2 - 1.0 mg/dL [facility] Nitrite, Urine Negative Negative [facility] [place] [phone] Microscopic Examination See below: [facility] Comment:Microscopic was su cated and was performed. URINALYSIS REFLEX Comment [facility] [phone] Comment:This specimen will n ot reflex to a Urine Culture. Urine Urine specimen obtained by clean catch procedure / Unknown 09/28/2025 7:42 AM EDT 09/28/2025 us John Dodd MD LAB URINE ORDERABLES Final Result [facility] [place] [address] [place] [address] * Microscopic Examination (09/28/2025 7:42 AM EDT) WBC, Urine None seen 0 - 5 /hpf [facility] RBC, Urine 0-2 0 - 2 /hpf [facility] Squamous Epithelial, Urine 0-10 0 - 10 /hpf [facility] Casts None seen None seen /lpf [facility] Bacteria, Urine None seen None seen/Few [facility] 09/28/2025 7:42 AM EDT 09/28/2025 John Dodd MD LAB MICROBIOLOGY - GENERAL ORDERABLES Final Result Performing Organization Address City/[facility]/ZIP Co de Phone Number [facility] [place] [address] [place] [address] * (ABNORMAL) Iron Panel (Fe, TIBC, TSAT) (09/28/2025 7:42 AM EDT) TIBC 242(L) 250 - 450 ug/dL [facility] UIBC 185 111 - 343 ug/dL [facility] Iron 57 38 - 169 ug/dL [facility] Iron Saturation (TSat) 24 15 - 55 % [facility] Blood Venous blood / Unknown 09/28/2025 7:42 AM EDT 09/28/2025 John Dodd MD LAB BLOOD ORDERABLES Final Result Performing Organization Address City/[facility]/ZIP Co de Phone Number [employer] [facility] [place] [address] [place] [address] * (ABNORMAL) Urine Albumin / Creatinine Ratio (09/28/2025 7:42 AM EDT) Creatinine, Ur 116.8 Not Estab. mg/dL [facility] Albumin, Urine 1,124.3 Not Estab. ug/mL [facility] Comment: Results confirmed on dilution. Albumin/Creatin ine Ratio 963(H) 0 - 29 mg/g creat [facility] Comment: Normal: 0 - 29 Moderately increased: 30 - 300 Severely increased: >300 Urine Urine specimen obtained by clean catch procedure / Unknown 09/28/2025 7:42 AM EDT 09/28/2025 John Dodd MD LAB URINE ORDERABLES Final Result [facility] [place] [address] [place] [address] * (ABNORMAL) CBC and Differential (09/28/2025 7:42 AM EDT) WBC 7.2 3.4 - 10.8 x10E3/uL [facility] RBC 4.13(L) 4.14 - 5.80 x10E6/uL [facility] Hemoglobin 13.0 13.0 - 17.7 g/dL [facility] Hematocrit 39.6 37.5 - 51.0 % [facility] MCV 96 79 - 97 fL [facility] MCH 31.5 26.6 - 33.0 pg [facility] MCHC 32.8 31.5 - 35.7 g/dL [facility] RDW 13.7 11.6 - 15.4 % [facility] Platelets 147(L) 150 - 450 x10E3/uL [facility] Neutrophils Relative 81 Not Estab. % [facility] Lymphocytes Relative 10 Not Estab. % [facility] Monocytes 8 Not Estab. % [facility] Eosinophils Relative 1 Not Estab. % [facility] Basophils Relative 0 Not Estab. % [facility] Neutrophils Absolute 5.8 1.4 - 7.0 x10E3/uL [facility] Lymphocytes Absolute 0.7 0.7 - 3.1 x10E3/uL [facility] Monocytes Absolute 0.6 0.1 - 0.9 x10E3/uL [facility] Eosinophils Absolute 0.1 0.0 - 0.4 x10E3/uL [facility] Basophils Absolute 0.0 0.0 - 0.2 x10E3/uL [facility] Immature Granulocytes 0 Not Estab. % [facility] Immature Grans (Absolute) 0.0 0.0 - 0.1 x10E3/uL [facility] Blood Venous blood / Unknown 09/28/2025 7:42 AM EDT 09/28/2025 John Dodd MD LAB BLOOD ORDERABLES Final Result Performing Organization Address [place]/[facility] Co de Phone Number [facility] [place] [address] [place] [address] * ALT (09/28/2025 7:42 AM EDT) ALT (SGPT) 11 0 - 44 IU/L [facility] [place] Blood Venous blood / Unknown 09/28/2025 7:42 AM EDT 09/28/2025 John Dodd MD LAB BLOOD ORDERABLES Final Result Performing Organization Address [place]/[facility] Co de Phone Number [facility] [place] [address] [place] [address] * AST (09/28/2025 7:42 AM EDT) AST (SGOT) 10 0 - 40 IU/L [facility] [place] Blood Venous blood / Unknown 09/28/2025 7:42 AM EDT 09/28/2025 John Dodd MD LAB BLOOD ORDERABLES Final Result Performing Organization Address City/[facility]/ZIP Co de Phone Number [facility] [place] [address] [place] [address] * PTH, Intact (09/28/2025 7:42 AM EDT) PTH 41 15 - 65 pg/mL [facility] [place] Blood Venous blood / Unknown 09/28/2025 7:42 AM EDT 09/28/2025 John Dodd MD LAB BLOOD ORDERABLES Final Result Performing Organization Address [facility]/ZIP Co de Phone Number [facility] [place] [address] [place] [address] * Magnesium (09/28/2025 7:42 AM EDT) Pathologist [facility] Magnesium 1.8 1.6 - 2.3 mg/dL [facility] [place] Blood Venous blood / Unknown 09/28/2025 7:42 AM EDT 09/28/2025 John Dodd MD LAB BLOOD ORDERABLES Final Result Performing Organization Address [place]/[facility] de Phone Number [facility] [place] [address] [place] [address] * (ABNORMAL) Hemoglobin A1c (09/28/2025 7:42 AM EDT) Hemoglobin A1C 7.3(H) 4.8 - 5.6 % [facility] [place] Comment: Prediabetes: 5.7 - 6.4 Diabetes: >6.4 Glycemic control for adults with diabetes: <7.0 Blood Venous blood / Unknown 09/28/2025 7:42 AM EDT 09/28/2025 John Dodd MD LAB BLOOD ORDERABLES Final Result [facility] [place] [address] [place] [address] * Ferritin (09/28/2025 7:42 AM EDT) Pathologist [facility] Ferritin 254 30 - 400 ng/mL [facility] [place] Blood Venous blood / Unknown 09/28/2025 7:42 AM EDT 09/28/2025 John Dodd MD LAB BLOOD ORDERABLES Final Result [employer] [facility] [place] [address] [place] [address] * CK (09/28/2025 7:42 AM EDT) Pathologist [facility] Creatine Kinase (CK/CPK) 56 41 - 331 U/L [facility] [place] Blood Venous blood / Unknown 09/28/2025 7:42 AM EDT 09/28/2025 John Dodd MD LAB BLOOD ORDERABLES Final Result Performing Organization Address City/[facility] Co de Phone Number [employer] [facility] [place] [address] [place] [address] * (ABNORMAL) Renal Function Panel (09/28/2025 7:42 AM EDT) Only the most recent of2 resultswithin the time period is included. Glucose 221(H) 70 - 99 mg/dL [facility] BUN 31(H) 8 - 27 mg/dL [facility] Creatinine 1.27 0.76 - 1.27 mg/dL [facility] eGFR CKD-EPI CR 2020 63 >59 mL/min/1.7 3 [facility] BUN/Creatinine Ratio 24 10 - 24 [facility] Sodium 141 134 - 144 mmol/L [facility] Potassium 4.5 3.5 - 5.2 mmol/L [facility] Chloride 106 96 - 106 mmol/L [facility] Bicarbonate (CO2) 23 20 - 29 mmol/L [facility] Calcium 9.7 8.6 - 10.2 mg/dL [facility] Albumin 3.6(L) 3.9 - 4.9 g/dL [facility] Phosphorus 2.2(L) 2.8 - 4.1 mg/dL [facility] Blood Venous blood / Unknown 09/28/2025 7:42 AM EDT 09/28/2025 John Dodd MD LAB BLOOD ORDERABLES Final Result [facility] [place] [address] [place] [address] from Last 3 Months Insurance [employer] Medicare Care Teams Manager Mail Relationship Specialty Start Date End Date Carla Burns MD [facility] [place] [address] [place], [place] PCP - General Internal Medicine 10/29/21
== END 2025-11-18 11:34 | disposition home or self-care (01) ==
LOC: HO.HMCH 10:46
PROVIDERS: PCP Internal Medicine; Visit Provider Internal Medicine
DX: Z00.00 Encounter for general adult medical examination without abnormal findings (principal); I12.9 Hypertensive chronic kidney disease with stage 1 through stage 4 chronic kidney disease, or unspecified chronic kidney disease; E11.65 Type 2 diabetes mellitus with hyperglycemia; N18.31 Chronic kidney disease, stage 3a; J43.9 Emphysema, unspecified; E78.5 Hyperlipidemia, unspecified; Z94.0 Kidney transplant status

== ENCOUNTER → 2025-11-18 10:45 | Outpatient (BNVA) | payer MEDICARE, SELFPAY | PROVIDERS: PCP Internal Medicine; Visit Provider Internal Medicine | DX: Z00.00 Encounter for general adult medical examination without abnormal findings (principal); E11.9 Type 2 diabetes mellitus without complications; I10 Essential (primary) hypertension; E78.5 Hyperlipidemia, unspecified; N18.31 Chronic kidney disease, stage 3a; J43.9 Emphysema, unspecified; Z94.0 Kidney transplant status; Z79.899 Other long term (current) drug therapy | CPT/HCPCS: 99397 ==